=== PATIENT | male | born 1965 | race Caucasian/White ===

== ENCOUNTER 2017-07-15 12:09 | Emergency (ER) | payer MEDICAID, OTHER ==
[2017-07-15] MEDS ORDERED: Sodium Chloride 0.9% 10 ML Syringe FLUSH PRN (12:18)
[2017-07-15] MEDS ORDERED: Sodium Chloride 0.9% 1,000 ML IV ONE (12:26)
[2017-07-15] MEDS ORDERED: Ondansetron 4 MG/2 ML SDV IVPUSH ONE (13:42)
[2017-07-15] MEDS ORDERED: Lactated Ringers 1,000 ML IV SCH (13:45)
[2017-07-15 14:07] LABS: CHLORIDE,CL 108 mmol/L (98-107); SODIUM,NA 142 mmol/L (136-145)
[2017-07-15 14:14] VITALS: BP 144/88
--- NOTE | 2017-07-15 15:57 | EDM.PDOC ---
ED HPI GENERAL MEDICAL PROBLEM - General Chief Complaint: General Stated Complaint: ER Time Seen by Provider: 07/15/17 12:12 Source of Information: Reports: Patient History Limitations: Reports: No Limitations - History of Present Illness INITIAL COMMENTS - FREE TEXT/NARRATIVE: Pt. states that he has been experiencing diarrhea and nausea for the past 4 days. He states that he has a history of Parkinson's disease and feels that the weakness is secondary to that. Pt. states that he becomes very week when he stands or is ambulatory for an extended period of time, and states that he feel twice in the past few days. He state that he did not lose consciousness. He states that he has had fever and chills. He denies any chest pain or shortness of breath. He denies any blood in his stool. Onset Date: 07/12/17 Location: Reports: Generalized Associated Symptoms: Reports: Fever/Chills, Loss of Appetite, Malaise, Weakness - Related Data Allergies Allergy/AdvReac Type Severity Reaction Status Date / Time hydrocodone Allergy Dizziness Verified 07/15/17 12:33 sertraline HCl [From Zoloft] Allergy Hives Verified 07/15/17 12:33 cranberry Allergy Respiratory Uncoded 12/30/15 19:08 Distress Home Meds: Home Meds Albuterol [Ventolin HFA] 2 puff INH Q4H PRN 07/15/14 [History] Budesonide/Formoterol [Symbicort 80-4.5 MCG] 1 puff INH BID 07/15/14 [History] Insulin Glarg,Human.Rec.Analog [LantUS] 28 unit SUBCUT BEDTIME 07/15/14 [History ] Nortriptyline HCl [Nortriptyline HCl] 25 mg PO TID 07/15/14 [History] Lisinopril 5 mg PO DAILY 02/24/15 [History] PARoxetine [Paxil] 20 mg PO DAILY 02/24/15 [History] Zolpidem Tartrate [Zolpidem Tartrate] 5 mg PO BEDTIME 11/26/15 [History] Benztropine [Cogentin] 0.5 mg PO BID 07/15/17 [History] Carbidopa/Levodopa [Sinemet Cr 50-200 Tablet] 1 each PO TID 07/15/17 [History] Cyanocobalamin (Vitamin B-12) [B-12] 1,000 mcg PO DAILY 07/15/17 [History] Docusate Sodium [Colace] 100 mg PO TID 07/15/17 [History] Famotidine [Pepcid] 20 mg PO DAILY PRN 07/15/17 [History] Fluticasone Propionate [Flonase] 1 spray NASBOTH BID 07/15/17 [History] Gabapentin [Neurontin] 100 mg PO TID 07/15/17 [History] Warfarin [Coumadin] 5 mg PO .Pharmacy To Dose 07/15/17 [History] atorvaSTATin [Lipitor] 10 mg PO BEDTIME 07/15/17 [History] Past Medical History Respiratory History: Reports: Asthma Musculoskeletal History: Reports: Back Pain, Chronic Neurological History: Reports: Parkinson's Endocrine/Metabolic History: Reports: Diabetes, Type II Social & Family History - Tobacco Use Smoking Status *Q: Unknown Ever Smoked Second Hand Smoke Exposure: No - Alcohol Use Days Per Week of Alcohol Use: 0 - Recreational Drug Use Recreational Drug Use: No Recreational Drug Type: Reports: Marijuana/Hashish Recreational Drug Use Frequency: Not Used In Over 1 Year ED ROS GENERAL - Review of Systems Review Of Systems: See Below Constitutional: Reports: Fever, Chills, Malaise, Weakness, Fatigue HEENT: Reports: No Symptoms Respiratory: Reports: No Symptoms Cardiovascular: Reports: No Symptoms Endocrine: Reports: No Symptoms GI/Abdominal: Reports: Diarrhea, Flatus, Nausea : Reports: No Symptoms Musculoskeletal: Reports: No Symptoms Skin: Reports: No Symptoms Neurological: Reports: Pre-Existing Deficit (history of parkinson's disease), Weakness Psychiatric: Reports: No Symptoms Hematologic/Lymphatic: Reports: No Symptoms Immunologic: Reports: No Symptoms ED EXAM, GENERAL - Physical Exam Exam: See Below Exam Limited By: No Limitations General Appearance: Alert, WD/WN, No Apparent Distress Eye Exam: Bilateral Eye: EOMI, Normal Fundi, Normal Inspection, PERRL Ears: Normal External Exam, Normal Canal, Hearing Grossly Normal, Normal TMs Nose: Normal Inspection, Normal Mucosa, No Blood Throat/Mouth: Normal Inspection, Normal Lips, Normal Teeth, Normal Gums, No Airway Compromise, Other (oral mucosa dry) Head: Atraumatic, Normocephalic Neck: Normal Inspection, Supple, Non-Tender, Full Range of Motion Respiratory/Chest: No Respiratory Distress, Lungs Clear, Normal Breath Sounds, Chest Non-Tender Cardiovascular: Normal Peripheral Pulses, Regular Rate, Rhythm, No Edema, No JVD , No Murmur GI/Abdominal: Soft, Non-Tender, No Organomegaly, No Distention, No Mass, Other ( hyperactive bowel sounds) (Male) Exam: Deferred Rectal (Males) Exam: Deferred Back Exam: Normal Inspection, Full Range of Motion Extremities: Normal Inspection, Normal Range of Motion Neurological: Alert, Oriented, CN II-XII Intact, Normal Cognition, Normal Reflexes, No Motor/Sensory Deficits Psychiatric: Normal Affect, Normal Mood Skin Exam: Warm, Dry, Intact, Normal Color Lymphatic: No Adenopathy Course - Vital Signs Last Recorded V/S: Last Vital Signs Temp 36.8 C 07/15/17 13:43 Pulse 90 07/15/17 14:13 Resp 14 07/15/17 13:43 BP 144/88 H 07/15/17 14:13 Pulse Ox 95 07/15/17 14:13 - Orders/Labs/Meds Orders: Active Orders 24 hr Category Date Time Status EKG Documentation Completion [RC] STAT Care 07/15/17 12:19 Ordered Abdomen Series w Chest 1V [CR] Stat Exams 07/15/17 12:19 Taken CULTURE BLOOD [BC] Stat Lab 07/15/17 13:20 Results CULTURE BLOOD [BC] Stat Lab 07/15/17 13:30 Results Blood Culture x2 Reflex Set [OM.PC] Stat Oth 07/15/17 12:21 Ordered Peripheral IV Insertion Adult [OM.PC] Routine Oth 07/15/17 12:20 Ordered Labs: Laboratory Tests 07/15/17 07/15/17 07/15/17 Range/Units 13:09 13:20 13:20 WBC 6.6 (4.0-10.0) x10^3/uL RBC 4.84 (4.5-6.0) x10^6/uL Hgb 14.8 (14.0-18.0) g/dL Hct 43.0 (40.0-52.0) % MCV 88.8 (78.0-93.0) fL MCH 30.6 (26.0-32.0) pg MCHC 34.4 (32.0-36.0) g/dL RDW Coeff of Sharri 13.7 (10.0-15.0) % Plt Count 226 (130-400) x10^3/uL Neut % (Auto) 55.3 (50.0-80.0) % Lymph % (Auto) 33.2 (25.0-50.0) % [place] % (Auto) 8.6 (2.0-11.0) % Eos % (Auto) 2.3 (0.0-4.0) % Baso % (Auto) 0.6 (0.2-1.2) % PT 17.6 H (9.8-11.8) SEC INR 1.7 L (2.0-3.5) Sodium (136-145) mmol/L Potassium (3.5-5.1) mmol/L Chloride (98-107) mmol/L Carbon Dioxide (21-32) mmol/L BUN (7-18) mg/dL Creatinine (0.70-1.30) mg/dL Est Cr Clr Drug Dosing Estimated GFR (MDRD) Glucose (74-106) mg/dL Lactic Acid (0.4-2.0) mmol/L Calcium (8.5-10.1) mg/dL Corrected Calcium (8.5-10.1) mg/dL Phosphorus (2.6-4.7) mg/dL Magnesium (1.8-2.4) mg/dL Total Bilirubin (0.2-1.0) mg/dL AST (15-37) U/L ALT (16-63) U/L Alkaline Phosphatase (46-116) U/L Creatine Kinase (39-308) U/L Creatine Kinase Index (0.0-4.0) % CK-MB (CK-2) (0.0-3.6) ng/mL Troponin I (<=0.056) ng/mL C-Reactive Protein (<=0.9) mg/dL Total Protein (6.4-8.2) g/dL Albumin (3.4-5.0) g/dL Globulin Albumin/Globulin Ratio Urine Color Dark yellow H (YELLOW) Urine Appearance Clear (CLEAR) Urine pH 5.5 (5.0-8.0) Ur Specific [place] >=1.030 Urine Protein Trace H (NEGATIVE) mg/dL Urine Glucose (UA) Negative (NEGATIVE) mg/dL Urine Ketones Negative (NEGATIVE) mg/dL Urine Occult Blood Negative (NEGATIVE) Urine Nitrite Negative (NEGATIVE) Urine Bilirubin Small H (NEGATIVE) Urine Urobilinogen 1.0 (0.2) EU/dL Ur Leukocyte Esterase Negative (NEGATIVE) Urine RBC 0-5 (NOT SEEN) /HPF Urine WBC 0-5 (NOT SEEN) /HPF Ur Squamous Epith Cells Rare (NEGATIVE) /HPF Urine Bacteria Few H (NEGATIVE) /HPF Urine Mucus Moderate H (NEGATIVE) /LPF 07/15/17 07/15/17 Range/Units 13:20 13:20 WBC (4.0-10.0) x10^3/uL RBC (4.5-6.0) x10^6/uL Hgb (14.0-18.0) g/dL Hct (40.0-52.0) % MCV (78.0-93.0) fL MCH (26.0-32.0) pg MCHC (32.0-36.0) g/dL RDW Coeff of Sharri (10.0-15.0) % Plt Count (130-400) x10^3/uL Neut % (Auto) (50.0-80.0) % Lymph % (Auto) (25.0-50.0) % [place] % (Auto) (2.0-11.0) % Eos % (Auto) (0.0-4.0) % Baso % (Auto) (0.2-1.2) % PT (9.8-11.8) SEC INR (2.0-3.5) Sodium 142 (136-145) mmol/L Potassium 3.9 (3.5-5.1) mmol/L Chloride 108 H (98-107) mmol/L Carbon Dioxide 24 (21-32) mmol/L BUN 19 H (7-18) mg/dL Creatinine 1.1 (0.70-1.30) mg/dL Est Cr Clr Drug Dosing TNP Estimated GFR (MDRD) > 60 Glucose 159 H (74-106) mg/dL Lactic Acid 0.6 (0.4-2.0) mmol/L Calcium 8.7 (8.5-10.1) mg/dL Corrected Calcium 8.94 (8.5-10.1) mg/dL Phosphorus 2.5 L (2.6-4.7) mg/dL Magnesium 1.8 (1.8-2.4) mg/dL Total Bilirubin 1.3 H (0.2-1.0) mg/dL AST 23 (15-37) U/L ALT 13 L (16-63) U/L Alkaline Phosphatase 69 (46-116) U/L Creatine Kinase 172 (39-308) U/L Creatine Kinase Index 0.7 (0.0-4.0) % CK-MB (CK-2) 1.2 (0.0-3.6) ng/mL Troponin I < 0.017 (<=0.056) ng/mL C-Reactive Protein 0.2 (<=0.9) mg/dL Total Protein 7.0 (6.4-8.2) g/dL Albumin 3.7 (3.4-5.0) g/dL Globulin 3.3 Albumin/Globulin Ratio 1.12 Urine Color (YELLOW) Urine Appearance (CLEAR) Urine pH (5.0-8.0) Ur Specific [place] Urine Protein (NEGATIVE) mg/dL Urine Glucose (UA) (NEGATIVE) mg/dL Urine Ketones (NEGATIVE) mg/dL Urine Occult Blood (NEGATIVE) Urine Nitrite (NEGATIVE) Urine Bilirubin (NEGATIVE) Urine Urobilinogen (0.2) EU/dL Ur Leukocyte Esterase (NEGATIVE) Urine RBC (NOT SEEN) /HPF Urine WBC (NOT SEEN) /HPF Ur Squamous Epith Cells (NEGATIVE) /HPF Urine Bacteria (NEGATIVE) /HPF Urine Mucus (NEGATIVE) /LPF Meds: Medications Discontinued Medications Generic Name Dose Route Start Last Admin Trade Name Freq PRN Reason Stop Dose Admin Sodium Chloride 1,000 mls @ 1,000 mls/hr 07/15/17 12:26 07/15/17 13:00 Normal Saline IV 07/15/17 13:25 1,000 mls/hr .BOLUS ONE Administration Lactated Ringer's 1,000 mls @ 500 mls/hr 07/15/17 13:45 07/15/17 13:48 Ringers, Lactated IV 500 mls/hr ASDIRECTED JAQUELIN Administration Ondansetron HCl 4 mg 07/15/17 13:42 07/15/17 13:49 Zofran IVPUSH 07/15/17 13:43 4 mg ONETIME ONE Administration Sodium Chloride 10 ml 07/15/17 12:18 Saline Flush FLUSH ASDIRECTED PRN Keep Vein Open - Radiology Interpretation Free Text/Narrative:: Abdomen complete series was all within normal limits - Re-Assessments/Exams Free Text/Narrative Re-Assessment/Exam: 07/15/17 17:32 Pt. was given a 1 Liter NS and 1 Liter of Lactated Ringers, as well as 4mg Zofran IV. Pt. reported feeling much better-states his fatigue and lightheadedness resolved, as well as the nausea. He was subsequently able to ambulate without difficulty. Departure - Departure Time of Disposition: 15:48 Disposition: Home, Self-Care 01 Condition: Good Clinical Impression: Gastroenteritis, Dehydration - Discharge Information Instructions: Viral Gastroenteritis, Adult, Rehydration, Adult Referrals: Payton Gong DO [Primary Care Provider] - Forms: ED Department Discharge Additional Instructions: Zofran 4mg 1 orally every 8 hours as needed for nausea/vomiting. Drink plenty of water. No solid foods today. Advance diet to include bananas, rice, toast, crackers and apples starting tomorrow. Continue with current medications. Your Parkinson's symptoms have worsened as a result of being sick/dehydrated. - My Orders Last 24 Hours: My Active Orders 07/15/17 12:19 EKG Documentation Completion [RC] STAT Abdomen Series w Chest 1V [CR] Stat 07/15/17 12:20 Peripheral IV Insertion Adult [OM.PC] Routine 07/15/17 12:21 Blood Culture x2 Reflex Set [OM.PC] Stat 07/15/17 13:20 CULTURE BLOOD [BC] Stat 07/15/17 13:30 CULTURE BLOOD [BC] Stat - Assessment/Plan Last 24 Hours: My Active Orders 07/15/17 12:19 EKG Documentation Completion [RC] STAT Abdomen Series w Chest 1V [CR] Stat 07/15/17 12:20 Peripheral IV Insertion Adult [OM.PC] Routine 07/15/17 12:21 Blood Culture x2 Reflex Set [OM.PC] Stat 07/15/17 13:20 CULTURE BLOOD [BC] Stat 07/15/17 13:30 CULTURE BLOOD [BC] Stat Assessment:: 1. Gastroenteritis. 2. Dehydration. Plan: Zofran 4mg 1 orally every 8 hours as needed for nausea/vomiting. Drink plenty of water. No solid foods today. Advance diet to include bananas, rice, toast, crackers and apples starting tomorrow. Continue with current medications. Your Parkinson's symptoms have worsened as a result of being sick/dehydrated
== END 2017-07-15 15:48 | disposition home or self-care (01) ==
LOC: VM.ED 12:09
DX: K52.9 Noninfective gastroenteritis and colitis, unspecified (principal); E86.0 Dehydration; J45.909 Unspecified asthma, uncomplicated; E11.9 Type 2 diabetes mellitus without complications; Z79.01 Long term (current) use of anticoagulants; Z79.899 Other long term (current) drug therapy; Z91.018 Allergy to other foods; Z88.6 Allergy status to analgesic agent; Z88.8 Allergy status to other drugs, medicaments and biological substances
CPT/HCPCS: 36415; 74022; 80053; 81001; 82550; 82553; 83605; 83735; 84100; 84484; 85025; 85610; 86140; 87040; 93005; 96361; 96374; 99284; J2405; J7030; J7120

== ENCOUNTER 2018-01-11 11:32 | Emergency (ER) | payer MEDICAID, OTHER ==
--- NOTE | 2018-01-11 11:53 | EDM.PDOC ---
ED HPI GENERAL MEDICAL PROBLEM - General Chief Complaint: Neuro Symptoms/Deficits Stated Complaint: CODE GREEN Time Seen by Provider: 01/11/18 11:52 Source of Information: Reports: Patient, EMS Notes Reviewed, RN, RN Notes Reviewed History Limitations: Reports: No Limitations - History of Present Illness INITIAL COMMENTS - FREE TEXT/NARRATIVE: Patient is brought to the ED via EMS for CVA symptoms. EMS states the symptoms began around 10am. Patient was witnessed as having a left facial droop, left side weakness/neglect, drooling, and a left-sided headache. Upon arrival, patient still had the headache on the left side. Left facial droop presents with somewhat garbled speech. No other focal neurological deficits. Onset: Today, Sudden Onset Date: 01/11/18 Onset Time: 10:00 Duration: Constant - Related Data Allergies Allergy/AdvReac Type Severity Reaction Status Date / Time hydrocodone Allergy Dizziness Verified 07/15/17 12:33 sertraline HCl [From Zoloft] Allergy Hives Verified 07/15/17 12:33 cranberry Allergy Respiratory Uncoded 12/30/15 19:08 Distress Home Meds: Home Meds Albuterol [Ventolin HFA] 2 puff INH Q4H PRN 07/15/14 [History] Budesonide/Formoterol [Symbicort 80-4.5 MCG] 1 puff INH BID 07/15/14 [History] Insulin Glarg,Human.Rec.Analog [LantUS] 28 unit SUBCUT BEDTIME 07/15/14 [History ] Nortriptyline HCl 25 mg PO TID 07/15/14 [History] Lisinopril 5 mg PO DAILY 02/24/15 [History] PARoxetine [Paxil] 20 mg PO DAILY 02/24/15 [History] Zolpidem Tartrate 5 mg PO BEDTIME 11/26/15 [History] Benztropine [Cogentin] 0.5 mg PO BID 07/15/17 [History] Carbidopa/Levodopa [Sinemet Cr 50-200 Tablet] 1 each PO TID 07/15/17 [History] Cyanocobalamin (Vitamin B-12) [B-12] 1,000 mcg PO DAILY 07/15/17 [History] Docusate Sodium [Colace] 100 mg PO TID 07/15/17 [History] Famotidine [Pepcid] 20 mg PO DAILY PRN 07/15/17 [History] Fluticasone Propionate [Flonase] 1 spray NASBOTH BID 07/15/17 [History] Gabapentin [Neurontin] 100 mg PO TID 07/15/17 [History] Warfarin [Coumadin] 5 mg PO .Pharmacy To Dose 07/15/17 [History] atorvaSTATin [Lipitor] 10 mg PO BEDTIME 07/15/17 [History] Past Medical History Respiratory History: Reports: Asthma Musculoskeletal History: Reports: Back Pain, Chronic Neurological History: Reports: Parkinson's Endocrine/Metabolic History: Reports: Diabetes, Type II Social & Family History - Tobacco Use Smoking Status *Q: Unknown Ever Smoked Second Hand Smoke Exposure: No - Alcohol Use Days Per Week of Alcohol Use: 0 - Recreational Drug Use Recreational Drug Use: No Recreational Drug Type: Reports: Marijuana/Hashish Recreational Drug Use Frequency: Not Used In Over 1 Year ED ROS GENERAL - Review of Systems Review Of Systems: See Below Constitutional: Reports: Weakness. Denies: Fever, Chills Respiratory: Denies: Shortness of Breath, Cough Cardiovascular: Denies: Chest Pain, Palpitations GI/Abdominal: Reports: Nausea. Denies: Abdominal Pain, Vomiting Musculoskeletal: Reports: No Symptoms Skin: Reports: No Symptoms Neurological: Reports: Headache, Tremors, Trouble Speaking, Weakness. Denies: Numbness, Paresthesia, Pre-Existing Deficit, Tingling ED EXAM, NEURO - Physical Exam Exam: See Below Exam Limited By: No Limitations General Appearance: Alert, No Apparent Distress Eye Exam: Bilateral Eye: EOMI, Normal Inspection, PERRL Head Exam: Atraumatic, Normocephalic Neck: Supple Respiratory/Chest: No Respiratory Distress, Lungs Clear, Normal Breath Sounds Cardiovascular: Normal Peripheral Pulses, Regular Rate, Rhythm GI/Abdominal: Normal Bowel Sounds, Soft, Non-Tender Neurological: Alert, Tremor, Other (mild left facial droop; drooling; see NIH documentation). No: Abnormal Sensation Skin Exam: Warm, Dry, Intact, Normal Color EKG INTERPRETATION EKG Date: 01/11/18 Time: 11:43 Rhythm: NSR Rate (Beats/Min): 79 [place]: Normal P-Wave: Present QRS: Normal ST-T: Normal QT: Normal HI/PQ Interval: 0.12 Comparison: NA - No Prior EKG EKG Interpretation Comments: 1. Sinus Rhythm with sinus arrhythmia 2. possible IWMI, probably old *Q Meaningful Use (ADM) - VTE *Q VTE Mechanical Contraindications *Q: At Risk for Falls Course - Orders/Labs/Meds Orders: Active Orders 24 hr Category Date Time Status EKG 12 Lead [EKG Documentation Completion] [RC] STAT Care 01/11/18 11:55 Active Head wo Cont [CT] Routine Exams 01/11/18 11:41 Taken Sodium Chloride 0.9% [Normal Saline] 1,000 ml Med 01/11/18 11:56 Active IV ONETIME Sodium Chloride 0.9% [Saline Flush] Med 01/11/18 11:56 Active 10 ml FLUSH ASDIRECTED PRN Peripheral IV Insertion Adult [OM.PC] Routine Oth 01/11/18 11:56 Ordered Medication Orders Sodium Chloride (Normal Saline) 1,000 mls @ 999 mls/hr IV ONETIME ONE Stop: 01/11/18 12:56 Last Admin: 01/11/18 12:13 Dose: 999 mls/hr Sodium Chloride (Saline Flush) 10 ml FLUSH ASDIRECTED PRN PRN Reason: Keep Vein Open Labs: Laboratory Tests 01/11/18 01/11/18 01/11/18 Range/Units 11:47 11:47 11:47 WBC 5.8 (4.0-10.0) x10^3/uL RBC 4.57 (4.5-6.0) x10^6/uL Hgb 15.1 (14.0-18.0) g/dL Hct 41.9 (40.0-52.0) % MCV 91.7 (78.0-93.0) fL MCH 33.0 H (26.0-32.0) pg MCHC 36.0 (32.0-36.0) g/dL RDW Coeff of Sharri 13.7 (10.0-15.0) % Plt Count 223 (130-400) x10^3/uL Neut % (Auto) 54.7 (50.0-80.0) % Lymph % (Auto) 33.5 (25.0-50.0) % [place] % (Auto) 8.3 (2.0-11.0) % Eos % (Auto) 2.8 (0.0-4.0) % Baso % (Auto) 0.7 (0.2-1.2) % PT 30.9 H D (9.8-11.8) SEC INR 3.0 (2.0-3.5) Sodium 135 L (136-145) mmol/L Potassium 4.3 (3.5-5.1) mmol/L Chloride 103 (98-107) mmol/L Carbon Dioxide 27 (21-32) mmol/L Anion Gap 9.3 BUN 16 (7-18) mg/dL Creatinine 1.3 (0.70-1.30) mg/dL Est Cr Clr Drug Dosing TNP Estimated GFR (MDRD) 58 Glucose 155 H (74-106) mg/dL Calcium 8.6 (8.5-10.1) mg/dL Corrected Calcium 8.76 (8.5-10.1) mg/dL Phosphorus 2.8 (2.6-4.7) mg/dL Magnesium 1.7 L (1.8-2.4) mg/dL Total Bilirubin 0.9 (0.2-1.0) mg/dL AST 25 (15-37) U/L ALT 12 L (16-63) U/L Alkaline Phosphatase 75 (46-116) U/L Creatine Kinase 193 (39-308) U/L POC Troponin I (0.00-0.08) ng/mL Total Protein 7.4 (6.4-8.2) g/dL Albumin 3.8 (3.4-5.0) g/dL Globulin 3.6 Albumin/Globulin Ratio 1.06 01/11/18 Range/Units 11:53 WBC (4.0-10.0) x10^3/uL RBC (4.5-6.0) x10^6/uL Hgb (14.0-18.0) g/dL Hct (40.0-52.0) % MCV (78.0-93.0) fL MCH (26.0-32.0) pg MCHC (32.0-36.0) g/dL RDW Coeff of Sharri (10.0-15.0) % Plt Count (130-400) x10^3/uL Neut % (Auto) (50.0-80.0) % Lymph % (Auto) (25.0-50.0) % [place] % (Auto) (2.0-11.0) % Eos % (Auto) (0.0-4.0) % Baso % (Auto) (0.2-1.2) % PT (9.8-11.8) SEC INR (2.0-3.5) Sodium (136-145) mmol/L Potassium (3.5-5.1) mmol/L Chloride (98-107) mmol/L Carbon Dioxide (21-32) mmol/L Anion Gap BUN (7-18) mg/dL Creatinine (0.70-1.30) mg/dL Est Cr Clr Drug Dosing Estimated GFR (MDRD) Glucose (74-106) mg/dL Calcium (8.5-10.1) mg/dL Corrected Calcium (8.5-10.1) mg/dL Phosphorus (2.6-4.7) mg/dL Magnesium (1.8-2.4) mg/dL Total Bilirubin (0.2-1.0) mg/dL AST (15-37) U/L ALT (16-63) U/L Alkaline Phosphatase (46-116) U/L Creatine Kinase (39-308) U/L POC Troponin I 0.00 (0.00-0.08) ng/mL Total Protein (6.4-8.2) g/dL Albumin (3.4-5.0) g/dL Globulin Albumin/Globulin Ratio Meds: Medications Generic Name Dose Route Start Last Admin Trade Name Freq PRN Reason Stop Dose Admin Sodium Chloride 1,000 mls @ 999 mls/hr 01/11/18 11:56 01/11/18 12:13 Normal Saline IV 01/11/18 12:56 999 mls/hr ONETIME ONE Administration Sodium Chloride 10 ml 01/11/18 11:56 Saline Flush FLUSH ASDIRECTED PRN Keep Vein Open Discontinued Medications Generic Name Dose Route Start Last Admin Trade Name Freq PRN Reason Stop Dose Admin Ondansetron HCl 4 mg 01/11/18 11:57 01/11/18 12:13 Zofran IVPUSH 01/11/18 11:58 4 mg ONETIME ONE Administration - Radiology Interpretation Free Text/Narrative:: CT Head: No acute findings See scanned report in EMR CT Results Date: 01/11/18 CT Results Time: 12:04 Departure - Departure Time of Disposition: 12:38 Disposition: DC/Tfer to Acute Hospital 02 Condition: Good Clinical Impression: Palsy, Facial droop - Discharge Information Forms: Interfacility Transfer [facility] ED Communication - ED Communication Date/Time Date: 01/11/18 Time Called: 12:26 - Discussed Case With (1) Discussed Case With (1): Admitting Provider ([facility]) - Conversation Summary Admitting Provider Agreed to Patient's Admission: Yes Patient Aware of Amendments fo Care Plan: Yes - Problem List Review Problem List Initiated/Reviewed/Updated: Yes - My Orders Last 24 Hours: My Active Orders 01/11/18 11:41 Head wo Cont [CT] Routine 01/11/18 11:55 EKG 12 Lead [EKG Documentation Completion] [RC] STAT 01/11/18 11:56 Sodium Chloride 0.9% [Normal Saline] 1,000 ml IV ONETIME Sodium Chloride 0.9% [Saline Flush] 10 ml FLUSH ASDIRECTED PRN Peripheral IV Insertion Adult [OM.PC] Routine - Assessment/Plan Last 24 Hours: My Active Orders 01/11/18 11:41 Head wo Cont [CT] Routine 01/11/18 11:55 EKG 12 Lead [EKG Documentation Completion] [RC] STAT 01/11/18 11:56 Sodium Chloride 0.9% [Normal Saline] 1,000 ml IV ONETIME Sodium Chloride 0.9% [Saline Flush] 10 ml FLUSH ASDIRECTED PRN Peripheral IV Insertion Adult [OM.PC] Routine Assessment:: CVA vs facial palsy Plan: Case discussed with Dr. Caceres, [facility]. Report given. Patient accepted in transfer. Patient will be sent via ALS ground.
[2018-01-11] MEDS ORDERED: Sodium Chloride 0.9% 10 ML Syringe FLUSH PRN (11:56)
[2018-01-11] MEDS: Ondansetron 4 MG/2 ML SDV IVPUSH ONE (12:13)
[2018-01-11] MEDS: Sodium Chloride 0.9% 1,000 ML IV ONE (12:13)
[2018-01-11 12:14] LABS: CHLORIDE,CL 103 mmol/L (98-107); SODIUM,NA 135 mmol/L (136-145)
== END 2018-01-11 13:00 | disposition short-term general hospital (02) ==
LOC: VM.ED 11:32
DX: R29.810 Facial weakness (principal); G83.9 Paralytic syndrome, unspecified; E11.9 Type 2 diabetes mellitus without complications; J45.909 Unspecified asthma, uncomplicated; Z88.5 Allergy status to narcotic agent; Z88.8 Allergy status to other drugs, medicaments and biological substances; Z79.899 Other long term (current) drug therapy
CPT/HCPCS: 36415; 70450; 80053; 82550; 83735; 84100; 84484; 85025; 85610; 93010; 96361; 96374; 99284-GF; 99285; J2405; J7030

== ENCOUNTER 2020-02-21 09:25 | Emergency (ER) | payer OTHER ==
--- NOTE | 2020-02-21 09:59 | EDM.PDOC ---
ED HPI GENERAL MEDICAL PROBLEM - General Stated Complaint: Fall LOC Time Seen by Provider: 02/21/20 09:59 Source of Information: Reports: Patient History Limitations: Reports: No Limitations - History of Present Illness INITIAL COMMENTS - FREE TEXT/NARRATIVE: Patient comes emergency department with complaints of a fall and a loss of consciousness. This patient has a longstanding history of falls with his Parkinson's. He was in the bathroom this morning when he lost his balance he fell backwards striking his right elbow and hitting his head on the ground. He then woke up on the ground. He is unsure of how long he was knocked out maybe a couple of minutes. He continues to have a headache. No change in his visual acuity. No nausea no vomiting. No weakness dizziness lightheadedness prior to the fall or now. Neck pain. No visual acuity changes. No change in the functionality or sensation of his upper or lower extremities. No chest pain or shortness of breath or difficulty breathing. He has had a cough over the past couple of days. He also relates that his taste is not what it used to be. He has had a low-grade fever at home as well. He never checked that he just felt that he was feverish. Has complained of a laceration to his right elbow. He is unsure of when his last tetanus shot was. Denies any neck or back pain. Posterior Head Pain Score (Numeric/FACES): 8 Right Elbow Pain Score (Numeric/FACES): 5 - Related Data Allergies Allergy/AdvReac Type Severity Reaction Status Date / Time hydrocodone Allergy Dizziness Verified 02/21/20 10:21 sertraline HCl [From Zoloft] Allergy Hives Verified 02/21/20 10:21 cranberry Allergy Respiratory Uncoded 12/30/15 19:08 Distress Home Meds: Home Meds Albuterol [Ventolin HFA] 2 puff INH Q4H PRN 07/15/14 [History] Budesonide/Formoterol [Symbicort 80-4.5 MCG] 1 puff INH BID 07/15/14 [History] Insulin Glarg,Human.Rec.Analog [LantUS] 28 unit SUBCUT BEDTIME 07/15/14 [History ] Nortriptyline HCl 25 mg PO TID 07/15/14 [History] Lisinopril 5 mg PO DAILY 02/24/15 [History] PARoxetine [Paxil] 40 mg PO DAILY 02/24/15 [History] Zolpidem Tartrate 10 mg PO BEDTIME 11/26/15 [History] Benztropine [Cogentin] 0.5 mg PO BID 07/15/17 [History] Carbidopa/Levodopa [Sinemet Cr 50-200 Tablet] 1 each PO TID 07/15/17 [History] Cyanocobalamin (Vitamin B-12) [B-12] 1,000 mcg PO DAILY 07/15/17 [History] Docusate Sodium [Colace] 100 mg PO TID 07/15/17 [History] Famotidine [Pepcid] 20 mg PO DAILY PRN 07/15/17 [History] Fluticasone Propionate [Flonase] 1 spray NASBOTH BID 07/15/17 [History] Gabapentin [Neurontin] 100 mg PO TID 07/15/17 [History] Warfarin [Coumadin] 5 mg PO .Pharmacy To Dose 07/15/17 [History] atorvaSTATin [Lipitor] 10 mg PO BEDTIME 07/15/17 [History] Alfuzosin HCl [Alfuzosin HCl ER] 10 mg PO DAILY 02/21/20 [History] Ondansetron [Zofran] 4 mg PO Q8H PRN 02/21/20 [History] Past Medical History Respiratory History: Reports: Asthma Musculoskeletal History: Reports: Back Pain, Chronic Neurological History: Reports: Parkinson's Endocrine/Metabolic History: Reports: Diabetes, Type II ED ROS GENERAL - Review of Systems Review Of Systems: Comprehensive ROS is negative, except as noted in HPI. ED EXAM, HEAD INJURY - Physical Exam Exam: See Below Exam Limited By: No Limitations General Appearance: Alert, WD/WN, No Apparent Distress Head: Atraumatic, Normocephalic. No: Scalp Lacerations, Scalp Swelling, Scalp Abrasions, Scalp Ecchymosis, Scalp Hematoma, Scalp Tenderness, Active Bleeding, Morales's Sign, Flap, Facial Abrasions, Facial Ecchymosis, Facial Lacerations, Facial Swelling, Sinus Tenderness, Facial Tenderness, Raccoon Eyes Nexus Criteria: No: Posterior, Midline Cervical Tenderness, Evidence of Intoxication, Altered Level of Consciousness, Focal Neurological Deficit, Painful Distraction Injuries Eyes: Bilateral Eye: EOMI, PERRL Ears: Normal External Exam, Normal Canal, Normal TMs Nose: Normal Inspection, Normal Mucousa, No Blood Throat/Mouth: Normal Inspection, Normal Lips, Normal Teeth, Normal Oropharynx, Normal Voice Neck: Non-Tender, Full Range of Motion Respiratory: No Respiratory Distress, Lungs Clear, Normal Breath Sounds, No Accessory Muscle Use Cardiovascular: Normal Peripheral Pulses, Regular Rate, Rhythm GI/Abdominal Exam: Normal Bowel Sounds, Soft, Non-Tender (Male) Exam: Deferred Rectal (Males) Exam: Deferred Back Exam: Normal Inspection, Full Range of Motion Extremities: Normal Inspection, Normal Range of Motion, Normal Capillary Refill Neurologic: washer repairman II-XII nml As Tested, No Motor/Sensory Deficits (From baseline) , Alert, Normal Mood/Affect, Oriented x 3 Skin: Normal Color, Warm/Dry - Emma Coma Score Best Eye Response ([place]): (4) Open Spontaneously Best Verbal Response ([place]): (5) Oriented Best Motor Response (Emma): (6) Obeys Commands ED LACERATION/WOUND & ROSEANN PROC - Laceration/Wound Repair Right Elbow Lac/wound length in cm: 1.2 Appearance: Subcutaneous Distal NVT: Neuro & Vascular Intact, No Tendon Injury Anesthetic Type: Local Local Anesthesia - Lidocaine (Xylocaine): 1% Plain Skin Prep: Chlorhexidine (Hibiciens), Saline Saline irrigation (cc's): 100 Exploration/Debridement/Repair: Wound Explored, In a Bloodless Field, Explored to Base Closed with: Sutures Suture Size: 5-0 # of Sutures: 4 Course - Vital Signs Last Recorded V/S: Last Vital Signs Temp 38.1 C 02/21/20 09:35 Pulse 119 H 02/21/20 09:35 Resp 18 02/21/20 09:35 BP 116/67 02/21/20 09:35 Pulse Ox 95 02/21/20 09:35 - Orders/Labs/Meds Orders: Active Orders 24 hr Category Date Time Status Vaccines to be Administered [RC] PER UNIT ROUTINE Care 02/21/20 11:20 Active Labs: Laboratory Tests 02/21/20 Range/Units 10:10 SARS-CoV-2 RNA (RT-PCR) Negative (NEGATIVE) Meds: Medications Discontinued Medications Generic Name Dose Route Start Last Admin Trade Name Freq PRN Reason Stop Dose Admin Diphtheria/Tetanus/Acell Pertussis 0.5 ml 02/21/20 11:20 02/21/20 11:27 Adacel IM 02/21/20 11:21 0.5 ml .ONCE ONE Administration Lidocaine HCl 30 ml 02/21/20 10:06 02/21/20 10:59 Xylocaine-Mpf 1% INJECT 02/21/20 10:07 30 ml ONETIME ONE Administration - Radiology Interpretation Free Text/Narrative:: X-ray of the right elbow no fracture dislocation or other osseous abnormality. CT of the head per radiology negative. - Re-Assessments/Exams Free Text/Narrative Re-Assessment/Exam: 02/21/20 WE did complete a covid test with his complaints of fever cough and taste change and this was negative. CT of the head negative. Tdap updated. Laceration repair see procedure note. This patient clearly has a concussion from his fall which is most likely mechanical due to his chronic instability with his Parkinson's. He had no symptoms prior to his fall other than losing his balance. We will discharge him home with his family at this time. Rest over the next couple of days return if anything new or worse. He is comfortable with this plan and his questions are answered. Departure - Departure Time of Disposition: 11:10 Disposition: Home, Self-Care 01 Clinical Impression: Concussion with less than 1 hour loss of consciousness, COVID-19 ruled out Laceration of elbow, right Qualifiers: Encounter type: initial encounter Qualified Code(s): S51.011A - Laceration without foreign body of right elbow, initial encounter - Discharge Information Instructions: Concussion, Adult, [id number], Sutured Wound Care, [id number] Referrals: Payton Gong, [Primary Care Provider] - Forms: ED Department Discharge Additional Instructions: Cleanse the laceration of the elbow twice daily with soap and water. Bacitracin and bandage until healed. Watch for signs of infection. Sutures out in 10 days. Water over the laceration is fine do not allow it to soak in water such as a bathtub or pool. Tylenol as needed for the headache. Rest over the next couple of days. Try to decrease stimulation with the concussion such as bright lights sounds. To the ER if new or worsening symptoms. Follow-up primary care provider if any concerns. Sepsis Event Note - Focused Exam Vital Signs: Vital Signs Temp Pulse Resp BP Pulse Ox 05/21/20 09:35 38.1 C 119 H 18 116/67 95 Date Exam was Performed: 02/21/20 Time Exam was Performed: 16:32 - My Orders Last 24 Hours: My Active Orders 02/21/20 11:20 Vaccines to be Administered [RC] PER UNIT ROUTINE - Assessment/Plan Last 24 Hours: My Active Orders 02/21/20 11:20 Vaccines to be Administered [RC] PER UNIT ROUTINE Assessment:: Fall Concussion with less than 1 hr LOC Right elbow laceration sutured. Hx of Parkinsons. Screening for COvid Plan: Cleanse the laceration of the elbow twice daily with soap and water. Bacitracin and bandage until healed. Watch for signs of infection. Sutures out in 10 days. Water over the laceration is fine do not allow it to soak in water such as a bathtub or pool. Tylenol as needed for the headache. Rest over the next couple of days. Try to decrease stimulation with the concussion such as bright lights sounds. To the ER if new or worsening symptoms. Follow-up primary care provider if any concerns.
[2020-02-21] MEDS ORDERED: Lidocaine 1% 30 ML SDV INJECT ONE (10:06)
[2020-02-21 10:18] VITALS: BP 116/67; PULSE 119
--- NOTE | 2020-02-21 11:10 | CT ---
[id number] CT/CT Head WO IV EXAM: CT Head WO IV CLINICAL DATA: FALL, LOSS OF CONSCIOUSNESS. COMPARISON STUDY: None FINDINGS: No intracranial hemorrhage, extra-axial fluid collection, mass, or acute ischemia. Soft tissues are unremarkable. Paranasal sinuses and mastoid air cells are clear. IMPRESSION: No acute intracranial findings. David Houston DO 02/21/20 1109 Thank you for allowing us to participate in the care of your patient.
--- NOTE | 2020-02-21 11:19 | CR ---
[id number] RAD/RAD Elbow Right 3V Min EXAM: 3 VIEWS RIGHT ELBOW. INDICATION: FALL, RIGHT ELBOW PAIN. COMPARISON: None. DISCUSSION: No fracture, dislocation or other acute osseous abnormality. Enthesopathic change at the triceps insertion. There is a radiodense metallic foreign body overlying the mid right forearm. This measures approximately 4 mm in maximum dimension. IMPRESSION: 1. As above. David Houston DO 02/21/20 1118 Thank you for allowing us to participate in the care of your patient.
[2020-02-21] MEDS ORDERED: Diphtheria,Pertussis(Acell),Tetanus Vaccine 0.5 ML Syringe IM ONE (11:20)
== END 2020-02-21 11:32 | disposition home or self-care (01) ==
LOC: VM.ED 09:25
DX: S06.0X1A Concussion with loss of consciousness of 30 minutes or less, initial encounter (principal); S51.011A Laceration without foreign body of right elbow, initial encounter; J45.909 Unspecified asthma, uncomplicated; G20 Parkinson's disease; E11.9 Type 2 diabetes mellitus without complications; Z23 Encounter for immunization; Z88.5 Allergy status to narcotic agent; Z88.8 Allergy status to other drugs, medicaments and biological substances; Z91.018 Allergy to other foods; Z79.4 Long term (current) use of insulin; Z79.01 Long term (current) use of anticoagulants; Z79.899 Other long term (current) drug therapy; W01.10XA Fall on same level from slipping, tripping and stumbling with subsequent striking against unspecified object, initial encounter
CPT/HCPCS: 12001; 70450; 73080-RT; 90471; 90715; 99283-GF; 99284-25; J2001; U0002

== ENCOUNTER 2020-04-04 07:35 | Inpatient (IN) | payer OTHER, MEDICARE ==
--- NOTE | 2020-04-04 08:07 | EDM.PDOC ---
ED HPI GENERAL MEDICAL PROBLEM - General Chief Complaint: Fever Stated Complaint: SYMPTOMS OF COVID Time Seen by Provider: 04/04/20 07:50 Source of Information: Reports: Patient, Family History Limitations: Reports: No Limitations - History of Present Illness INITIAL COMMENTS - FREE TEXT/NARRATIVE: Patient comes into the emergency department with complaints of fever, shortness of breath, and body aches. Patient states that this is been going on now for 2 days. His had noticed that he had increasing fatigue over the last 24 to 48 hours as well as fever, chills, nausea with vomiting, GI upset, and loss of taste. Patient has had a fever at home of approximately 101.He has had COVID testing done one time this winter after he had injured his arm which came back negative. Since then the patient and state that he has been fairly healthy and has had no major issues or concerns. Patient states He is also short of breath at rest. Patient denies any chest pain, visual changes, or peripheral edema. Onset: Gradual Quality: Reports: Ache Severity: Moderate Improves with: Reports: None Worsens with: Reports: None Associated Symptoms: Reports: Fever/Chills, Headaches, Loss of Appetite, Malaise, Nausea/Vomiting, Shortness of Breath, Weakness - Related Data Allergies Allergy/AdvReac Type Severity Reaction Status Date / Time hydrocodone Allergy Dizziness Verified 04/04/20 07:50 sertraline HCl [From Zoloft] Allergy Hives Verified 04/04/20 07:50 cranberry Allergy Respiratory Uncoded 12/30/15 19:08 Distress Home Meds: Home Meds Albuterol [Ventolin HFA] 2 puff INH Q4H PRN 07/15/14 [History] Budesonide/Formoterol [Symbicort 80-4.5 MCG] 1 puff INH BID 07/15/14 [History] Insulin Glarg,Human.Rec.Analog [LantUS] 28 unit SUBCUT BEDTIME 07/15/14 [History] Nortriptyline HCl 25 mg PO TID 07/15/14 [History] Lisinopril 5 mg PO DAILY 02/24/15 [History] PARoxetine [Paxil] 40 mg PO DAILY 02/24/15 [History] Zolpidem Tartrate 10 mg PO BEDTIME 11/26/15 [History] Benztropine [Cogentin] 0.5 mg PO BID 07/15/17 [History] Carbidopa/Levodopa [Sinemet Cr 50-200 Tablet] 1 each PO TID 07/15/17 [History] Cyanocobalamin (Vitamin B-12) [B-12] 1,000 mcg PO DAILY 07/15/17 [History] Docusate Sodium [Colace] 100 mg PO TID 07/15/17 [History] Famotidine [Pepcid] 20 mg PO DAILY PRN 07/15/17 [History] Fluticasone Propionate [Flonase] 1 spray NASBOTH BID 07/15/17 [History] Gabapentin [Neurontin] 100 mg PO TID 07/15/17 [History] Warfarin [Coumadin] 5 mg PO .Pharmacy To Dose 07/15/17 [History] atorvaSTATin [Lipitor] 10 mg PO BEDTIME 07/15/17 [History] Alfuzosin HCl [Alfuzosin HCl ER] 10 mg PO DAILY 02/21/20 [History] Ondansetron [Zofran] 4 mg PO Q8H PRN 02/21/20 [History] Past Medical History HEENT History: Reports: Allergic Rhinitis Cardiovascular History: Reports: High Cholesterol, Hypertension, [place] Respiratory History: Reports: Asthma Gastrointestinal History: Reports: Colon Polyp, GERD Other Gastrointestinal History: ch's esophagus Musculoskeletal History: Reports: Back Pain, Chronic Neurological History: Reports: Parkinson's Psychiatric History: Reports: Depression, PTSD Endocrine/Metabolic History: Reports: Diabetes, Type II Social & Family History - Tobacco Use Smoking Status *Q: Unknown Ever Smoked ED ROS GENERAL - Review of Systems Review Of Systems: See Below Constitutional: Reports: Fever, Chills, Malaise, Weakness, Fatigue, Decreased Appetite Respiratory: Reports: Shortness of Breath Cardiovascular: Reports: No Symptoms Endocrine: Reports: No Symptoms GI/Abdominal: Reports: No Symptoms : Reports: No Symptoms Musculoskeletal: Reports: No Symptoms Skin: Reports: No Symptoms Neurological: Reports: No Symptoms Psychiatric: Reports: No Symptoms Hematologic/Lymphatic: Reports: No Symptoms Immunologic: Reports: No Symptoms ED EXAM, GENERAL - Physical Exam Exam: See Below Exam Limited By: No Limitations General Appearance: Alert, WD/WN, No Apparent Distress Eye Exam: Bilateral Eye: EOMI, PERRL Head: Atraumatic, Normocephalic Neck: Normal Inspection, Supple, Non-Tender, Full Range of Motion Respiratory/Chest: Decreased Breath Sounds Cardiovascular: Normal Peripheral Pulses, No Edema, Tachycardia GI/Abdominal: Normal Bowel Sounds, Soft, Non-Tender, No Mass Extremities: Normal Inspection, Normal Range of Motion, Non-Tender, No Pedal Edema, Normal Capillary Refill Neurological: Alert, Oriented, Other (use walker for mobility ) Psychiatric: Normal Affect, Normal Mood Skin Exam: Warm, Normal Color Course - Vital Signs Last Recorded V/S: Last Vital Signs Temp 39.2 C H 04/04/20 09:44 Pulse 101 H 04/04/20 09:44 Resp 20 04/04/20 09:44 BP 132/69 04/04/20 09:44 Pulse Ox 92 L 04/04/20 09:44 - Orders/Labs/Meds Orders: Active Orders 24 hr Category Date Time Status Admission Status [Patient Status] [ADT] Routine ADT 04/04/20 10:13 Ordered EKG Documentation Completion [RC] STAT Care 04/04/20 07:58 Active CULTURE BLOOD [BC] Stat Lab 04/04/20 08:36 Received CULTURE BLOOD [BC] Stat Lab 04/04/20 08:41 Received PROCALCITONIN [REF] Stat Lab 04/04/20 08:36 Received Acetaminophen [Tylenol] Med 04/04/20 10:14 Once 650 mg PO NOW ONE Sodium Chloride 0.9% [Saline Flush] Med 04/04/20 07:58 Active 10 ml FLUSH ASDIRECTED PRN Blood Culture x2 Reflex Set [OM.PC] Stat Oth 04/04/20 07:58 Ordered Peripheral IV Insertion Adult [OM.PC] Stat Oth 04/04/20 07:58 Ordered Medication Orders Sodium Chloride (Saline Flush) 10 ml FLUSH ASDIRECTED PRN PRN Reason: Keep Vein Open Labs: Laboratory Tests 04/04/20 04/04/20 04/04/20 Range/Units 08:05 08:36 08:36 WBC 7.1 (4.0-10.0) x10^3/uL RBC 4.94 (4.5-6.0) x10^6/uL Hgb 15.3 (14.0-18.0) g/dL Hct 44.5 (40.0-52.0) % MCV 90.1 (78.0-93.0) fL MCH 31.0 (26.0-32.0) pg MCHC 34.4 (32.0-36.0) g/dL RDW Coeff of Sharri 13.4 (10.0-15.0) % Plt Count 206 (130-400) x10^3/uL Add Manual Diff Yes Neutrophils % (Manual) 78 (50-80) % Band Neutrophils % 4 (0-6) % Lymphocytes % (Manual) 10 L (25-50) % Monocytes % (Manual) 6 (2-11) % Eosinophils % (Manual) 2 (0-4) % Platelet Estimate Adequate Anisocytosis 1+ slight H Sodium 140 (136-145) mmol/L Potassium 4.6 (3.5-5.1) mmol/L Chloride 103 (98-107) mmol/L Carbon Dioxide 26 (21-32) mmol/L Anion Gap 15.6 (10-20) mmol/L BUN 24 H (7-18) mg/dL Creatinine 1.6 H (0.70-1.30) mg/dL Est Cr Clr Drug Dosing TNP Estimated GFR (MDRD) 45 Glucose 170 H (74-106) mg/dL Lactic Acid (0.4-2.0) mmol/L Calcium 8.8 (8.5-10.1) mg/dL Corrected Calcium 8.80 (8.5-10.1) mg/dL Total Bilirubin 1.0 (0.2-1.0) mg/dL AST 26 (15-37) U/L ALT 57 (16-63) U/L Alkaline Phosphatase 67 (46-116) U/L Troponin I < 0.017 (<=0.056) ng/mL NT-Pro-B Natriuret Pep 33 (<=125) pg/mL Total Protein 7.6 (6.4-8.2) g/dL Albumin 4.0 (3.4-5.0) g/dL Globulin 3.6 Albumin/Globulin Ratio 1.11 Urine Color (YELLOW) Urine Appearance (CLEAR) Urine pH (5.0-8.0) Ur Specific [place] Urine Protein (NEGATIVE) mg/dL Urine Glucose (UA) (NEGATIVE) mg/dL Urine Ketones (NEGATIVE) mg/dL Urine Occult Blood (NEGATIVE) Urine Nitrite (NEGATIVE) Urine Bilirubin (NEGATIVE) Urine Urobilinogen (0.2) EU/dL Ur Leukocyte Esterase (NEGATIVE) SARS-CoV-2 RNA (RT-PCR) Negative (NEGATIVE) 04/04/20 04/04/20 Range/Units 08:36 09:25 WBC (4.0-10.0) x10^3/uL RBC (4.5-6.0) x10^6/uL Hgb (14.0-18.0) g/dL Hct (40.0-52.0) % MCV (78.0-93.0) fL MCH (26.0-32.0) pg MCHC (32.0-36.0) g/dL RDW Coeff of Sharri (10.0-15.0) % Plt Count (130-400) x10^3/uL Add Manual Diff Neutrophils % (Manual) (50-80) % Band Neutrophils % (0-6) % Lymphocytes % (Manual) (25-50) % Monocytes % (Manual) (2-11) % Eosinophils % (Manual) (0-4) % Platelet Estimate Anisocytosis Sodium (136-145) mmol/L Potassium (3.5-5.1) mmol/L Chloride (98-107) mmol/L Carbon Dioxide (21-32) mmol/L Anion Gap (10-20) mmol/L BUN (7-18) mg/dL Creatinine (0.70-1.30) mg/dL Est Cr Clr Drug Dosing Estimated GFR (MDRD) Glucose (74-106) mg/dL Lactic Acid 2.3 H* (0.4-2.0) mmol/L Calcium (8.5-10.1) mg/dL Corrected Calcium (8.5-10.1) mg/dL Total Bilirubin (0.2-1.0) mg/dL AST (15-37) U/L ALT (16-63) U/L Alkaline Phosphatase (46-116) U/L Troponin I (<=0.056) ng/mL NT-Pro-B Natriuret Pep (<=125) pg/mL Total Protein (6.4-8.2) g/dL Albumin (3.4-5.0) g/dL Globulin Albumin/Globulin Ratio Urine Color Yellow (YELLOW) Urine Appearance Clear (CLEAR) Urine pH 5.5 (5.0-8.0) Ur Specific [place] 1.020 Urine Protein Negative (NEGATIVE) mg/dL Urine Glucose (UA) Negative (NEGATIVE) mg/dL Urine Ketones Negative (NEGATIVE) mg/dL Urine Occult Blood Negative (NEGATIVE) Urine Nitrite Negative (NEGATIVE) Urine Bilirubin Negative (NEGATIVE) Urine Urobilinogen 0.2 (0.2) EU/dL Ur Leukocyte Esterase Negative (NEGATIVE) SARS-CoV-2 RNA (RT-PCR) (NEGATIVE) Meds: Medications Generic Name Dose Route Start Last Admin Trade Name Freq PRN Reason Stop Dose Admin Sodium Chloride 10 ml 04/04/20 07:58 Saline Flush FLUSH ASDIRECTED PRN Keep Vein Open Discontinued Medications Generic Name Dose Route Start Last Admin Trade Name Freq PRN Reason Stop Dose Admin Ceftriaxone Sodium 1 gm 04/04/20 08:14 04/04/20 08:37 Rocephin IVPUSH 04/04/20 08:15 1 gm ONETIME ONE Administration Sodium Chloride 1,000 mls @ 1,000 mls/hr 04/04/20 08:15 04/04/20 08:36 Normal Saline IV 04/04/20 09:14 1,000 mls/hr ONETIME ONE Administration Departure - Departure Time of Disposition: 10:00 Disposition: Admitted As Inpatient 66 Condition: Good Clinical Impression: Weakness Pneumonia Qualifiers: Pneumonia type: due to unspecified organism Laterality: bilateral Lung location: lower lobe of lung Qualified Code(s): J18.9 - Pneumonia, unspecified organism Fever Qualifiers: Fever type: unspecified Qualified Code(s): R50.9 - Fever, unspecified Fatigue Qualifiers: Fatigue type: unspecified Qualified Code(s): R53.83 - Other fatigue - Discharge Information *PRESCRIPTION DRUG MONITORING PROGRAM REVIEWED*: Not Applicable *COPY OF PRESCRIPTION DRUG MONITORING REPORT IN PATIENT YVONNE: Not Applicable Referrals: Payton Gong DO [Physician] - Jm Mccormack MD [Primary Care Provider] - Forms: ED Department Discharge Sepsis Event Note (ED) - Evaluation Sepsis Screening Result: No Definite Risk - Focused Exam Vital Signs: Vital Signs Temp Temp Pulse Resp BP Pulse Ox 04/04/20 09:44 39.2 C H 101 H 20 132/69 92 L 04/04/20 07:40 39.2 C H 39.9 C H 118 H 20 133/72 91 L - My Orders Last 24 Hours: My Active Orders 04/04/20 07:58 EKG Documentation Completion [RC] STAT Sodium Chloride 0.9% [Saline Flush] 10 ml FLUSH ASDIRECTED PRN Blood Culture x2 Reflex Set [OM.PC] Stat Peripheral IV Insertion Adult [OM.PC] Stat 04/04/20 08:36 CULTURE BLOOD [BC] Stat PROCALCITONIN [REF] Stat 04/04/20 08:41 CULTURE BLOOD [BC] Stat 04/04/20 10:13 Admission Status [Patient Status] [ADT] Routine 04/04/20 10:14 Acetaminophen [Tylenol] 650 mg PO NOW ONE - Assessment/Plan Last 24 Hours: My Active Orders 04/04/20 07:58 EKG Documentation Completion [RC] STAT Sodium Chloride 0.9% [Saline Flush] 10 ml FLUSH ASDIRECTED PRN Blood Culture x2 Reflex Set [OM.PC] Stat Peripheral IV Insertion Adult [OM.PC] Stat 04/04/20 08:36 CULTURE BLOOD [BC] Stat PROCALCITONIN [REF] Stat 04/04/20 08:41 CULTURE BLOOD [BC] Stat 04/04/20 10:13 Admission Status [Patient Status] [ADT] Routine 04/04/20 10:14 Acetaminophen [Tylenol] 650 mg PO NOW ONE Assessment:: 1. pneumonia 2. sepsis criteria 3. fever 4. fatigue 5. weakness 6. decrease appetite 7. elevated Lactic acid Plan: 1. Sepsis protocol initiated and followed 2. Labs completed in the ER. Results reviewed with the patient 3. Blood cultures completed 4. IV initiated in the emergency department 5. IV fluids provided- 1Liter NS given 6. Covid-19 testing completed- negative rapid screening 7. EKG completed in ER. sinus tachycardia 8. Rocephin 1gm IV given in ER after Covid-19 testing results received 9. Tylenol PO given for fever 10. Consultation completed with-Dr. Cardona who will admit to acute care for further medical management 11. Patient and nursing staff was updated regarding the plan of care 12. Patient and family are agreeable to the above plan of care 13. All questions and concerns were addressed with the patient and family prior to admission
[2020-04-04] MEDS ORDERED: cefTRIAXone 1 GM Vial IVPUSH ONE (08:14)
[2020-04-04] MEDS ORDERED: Sodium Chloride 0.9% 1,000 ML IV ONE (08:15)
[2020-04-04 09:12] LABS: CHLORIDE,CL 103 mmol/L (98-107); SODIUM,NA 140 mmol/L (136-145)
[2020-04-04 09:13] LABS: ANION GAP 15.6 mmol/L (10-20)
--- NOTE | 2020-04-04 09:38 | CR ---
[id number] RAD/RAD Chest PA or AP 1V EXAM: FRONTAL CHEST INDICATION: SHORT OF BREATH. COMPARISON: July 15, 2017. DISCUSSION: Hypoinflation with central vascular crowding and basilar atelectasis. These changes could obscure early infiltrates or other pathology. Normal heart size. IMPRESSION: 1. Low lung volumes with mild bibasilar atelectasis. Goldy Rivera MD 04/04/20 0937 Thank you for allowing us to participate in the care of your patient.
[2020-04-04] MEDS ORDERED: Acetaminophen 325 MG Tab PO ONE (10:14)
[2020-04-04] MEDS ORDERED: Sodium Chloride 0.9% 10 ML Syringe FLUSH PRN (11:19)
[2020-04-04] MEDS ORDERED: Acetaminophen 325 MG Tab PO PRN (11:19)
[2020-04-04] MEDS ORDERED: Azithromycin 500 MG in Sodium Chloride 0.9% 250 ML IV STA (11:35)
--- NOTE | 2020-04-04 11:58 | PCM.HP.2 ---
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 Endorses 3 days of not feeling well with fever, SOB, body aches, and some nausea. Has had poor oral intake over the last few days. Developed a cough last evening that has persisted into this morning. Denies any recent URIs. ED evaluation notable for tachycardia, O2's in the lower 90s, normal CBC, elevated LA, Cr of 1.6. A CXR demonstrated bibasilar atelectasis concerning for pneumonia. (UA was negative). Blood cultures were collected. COVID testing was negative. He was given 1g of Rocephin IV and admitted for treatment of Sepsis/CAP. At this time the patient notes that he feels poor but is happy he didn't stay home to "tough this out". Endorses similar history to this provider as he did to the ED provider. Is fairly worried about making sure he gets some of his meds on board as many of these were recently changed at the [facility] and he doesn't want to get off-schedule due to fear of s/e. - Related Data Allergies/Adverse Reactions: Allergies Allergy/AdvReac Type Severity Reaction Status Date / Time hydrocodone Allergy Dizziness Verified 04/04/20 07:50 sertraline HCl [From Zoloft] Allergy Hives Verified 04/04/20 07:50 cranberry Allergy Respiratory Uncoded 12/30/15 19:08 Distress Home Medications: Home Meds Albuterol [Ventolin HFA] 2 puff INH Q6HR PRN 07/15/14 [History] Budesonide/Formoterol [Symbicort 80-4.5 MCG] 2 puff INH BID 07/15/14 [History] Insulin Glarg,Human.Rec.Analog [LantUS] 36 unit SUBCUT BEDTIME 07/15/14 [History] Lisinopril 5 mg PO DAILY 02/24/15 [History] PARoxetine [Paxil] 40 mg PO DAILY 02/24/15 [History] Benztropine [Cogentin] 0.5 mg PO BID 07/15/17 [History] Carbidopa/Levodopa [Sinemet Cr 50-200 Tablet] 1 each PO 0800 07/15/17 [History] Gabapentin [Neurontin] 800 mg PO TID 07/15/17 [History] Warfarin [Coumadin] 5 mg PO MO 07/15/17 [History] Alfuzosin HCl [Alfuzosin HCl ER] 10 mg PO DAILY 02/21/20 [History] Acetaminophen 1,300 mg PO BEDTIME 04/04/20 [History] Alogliptin Benzoate [Alogliptin] 25 mg PO DAILY 04/04/20 [History] Carbidopa/Levodopa [Carbidopa-Levodopa 25-250] 1 tab PO 0800,1100,1500 04/04/20 [History] Celecoxib 200 mg PO DAILY 04/04/20 [History] Cholecalciferol (Vitamin D3) [Vitamin D3] 50 mcg PO DAILY 04/04/20 [History] Empagliflozin [Jardiance] 12.5 mg PO DAILY 04/04/20 [History] Eszopiclone 3 mg PO BEDTIME PRN 04/04/20 [History] Finasteride 5 mg PO DAILY 04/04/20 [History] Gabapentin [Neurontin] 1,200 mg PO BEDTIME 04/04/20 [History] Insulin Aspart [NovoLOG] 5 units SUBCUT TIDMEALS 04/04/20 [History] Magnesium Hydroxide [Milk of Magnesia] 30 ml PO DAILY PRN 04/04/20 [History] Mirtazapine 30 mg PO BEDTIME 04/04/20 [History] Pantoprazole Sodium [Protonix] 40 mg PO BIDMEALS 04/04/20 [History] QUEtiapine Fumarate [Quetiapine Fumarate] 100 mg PO TID 04/04/20 [History] Warfarin [Coumadin] 7.5 mg PO SUTUWETHFRSA 04/04/20 [History] busPIRone HCl [Buspirone HCl] 15 mg PO BID 04/04/20 [History] metFORMIN HCl [Metformin HCl] 500 mg PO BIDMEALS 04/04/20 [History] polyethylene glycoL 3350 [Polyethylene Glycol 3350] 17 gm PO BID 04/04/20 [History] traZODone HCl [Trazodone HCl] 25 mg PO BEDTIME 04/04/20 [History] Past Medical History HEENT History: Reports: Allergic Rhinitis Cardiovascular History: Reports: High Cholesterol, Hypertension, [place], Other (See Below) Other Cardiovascular History: NSTEMI Respiratory History: Reports: Asthma, PE (on long-term anticoag) Gastrointestinal History: Reports: Colon Polyp, GERD Other Gastrointestinal History: ch's esophagus Musculoskeletal History: Reports: Back Pain, Chronic Neurological History: Reports: Parkinson's Psychiatric History: Reports: Depression, PTSD Endocrine/Metabolic History: Reports: Diabetes, Type II (on long-term insulin, with associated neuropathies) Social & Family History - Tobacco Use Smoking Status *Q: Never Smoker Second Hand Smoke Exposure: No - Caffeine Use Caffeine Use: Reports: Coffee, Soda - Recreational Drug Use Recreational Drug Use: No H&P Review of Systems - Review of Systems: Review Of Systems: See Below General: Reports: Fever, Chills, Malaise, Diaphoresis HEENT: Reports: No Symptoms Pulmonary: Reports: Shortness of Breath, Cough (non-productive) Cardiovascular: Reports: Chest Pain (on the ribs) Gastrointestinal: Reports: Anorexia, Constipation (chronic), Nausea Genitourinary: Reports: No Symptoms Musculoskeletal: Reports: Back Pain (chronic) Skin: Reports: No Symptoms Psychiatric: Reports: Depression, Anxiety, Other (sleep walking) Neurological: Reports: Tremors (parkinsons) Hematologic/Lymphatic: Reports: Easy Bruising (long-term anticoag, due to DVT/PE) Immunologic: Reports: No Symptoms Exam - Exam Exam: See Below - Vital Signs Vital Signs: Last Vital Signs Temp 39.2 C H 04/04/20 09:44 Pulse 101 H 04/04/20 09:44 Resp 20 04/04/20 09:44 BP 132/69 04/04/20 09:44 Pulse Ox 92 L 04/04/20 09:44 Weight: 116.12 kg - Exam General: Alert, Oriented, Mild Distress HEENT: Conjunctiva Clear, EOMI, Mucosa Moist & [place], Nares Patent, Posterior Pharynx Clear Neck: Supple, Trachea Midline, Lymphadenopathy Lungs: Rales, Wheezing Cardiovascular: Regular Rate, Regular Rhythm GI/Abdominal Exam: Normal Bowel Sounds, Soft, Non-Tender, Distended (gasseous, patient reports this as chronic) Extremities: Normal Range of Motion, No Pedal Edema Peripheral Pulses: 2+: Brachial (L), Brachial (R), Dorsalis Pedis (L), Dorsalis Pedis (R) Skin: Warm, Moist Neurological: Cranial Nerves Intact Neuro Extensive - Mental Status: Alert, Oriented x3 Neuro Extensive - Motor, Sensory, Reflexes: CN II-XII Intact, Normal Reflexes, Tremor (jumpy, likely secondary to missed medications) Psychiatric: Alert, Normal Mood, Other (flat affect) - Patient Data Lab Results Last 24 hrs: Laboratory Results - last 24 hr 04/04/20 04/04/20 04/04/20 Range/Units 08:05 08:36 08:36 WBC 7.1 (4.0-10.0) x10^3/uL RBC 4.94 (4.5-6.0) x10^6/uL Hgb 15.3 (14.0-18.0) g/dL Hct 44.5 (40.0-52.0) % MCV 90.1 (78.0-93.0) fL MCH 31.0 (26.0-32.0) pg MCHC 34.4 (32.0-36.0) g/dL RDW Coeff of Sharri 13.4 (10.0-15.0) % Plt Count 206 (130-400) x10^3/uL Add Manual Diff Yes Neutrophils % (Manual) 78 (50-80) % Band Neutrophils % 4 (0-6) % Lymphocytes % (Manual) 10 L (25-50) % Monocytes % (Manual) 6 (2-11) % Eosinophils % (Manual) 2 (0-4) % Platelet Estimate Adequate Anisocytosis 1+ slight H Sodium 140 (136-145) mmol/L Potassium 4.6 (3.5-5.1) mmol/L Chloride 103 (98-107) mmol/L Carbon Dioxide 26 (21-32) mmol/L Anion Gap 15.6 (10-20) mmol/L BUN 24 H (7-18) mg/dL Creatinine 1.6 H (0.70-1.30) mg/dL Est Cr Clr Drug Dosing TNP Estimated GFR (MDRD) 45 Glucose 170 H (74-106) mg/dL Lactic Acid (0.4-2.0) mmol/L Calcium 8.8 (8.5-10.1) mg/dL Corrected Calcium 8.80 (8.5-10.1) mg/dL Total Bilirubin 1.0 (0.2-1.0) mg/dL AST 26 (15-37) U/L ALT 57 (16-63) U/L Alkaline Phosphatase 67 (46-116) U/L Troponin I < 0.017 (<=0.056) ng/mL NT-Pro-B Natriuret Pep 33 (<=125) pg/mL Total Protein 7.6 (6.4-8.2) g/dL Albumin 4.0 (3.4-5.0) g/dL Globulin 3.6 Albumin/Globulin Ratio 1.11 Urine Color (YELLOW) Urine Appearance (CLEAR) Urine pH (5.0-8.0) Ur Specific [place] Urine Protein (NEGATIVE) mg/dL Urine Glucose (UA) (NEGATIVE) mg/dL Urine Ketones (NEGATIVE) mg/dL Urine Occult Blood (NEGATIVE) Urine Nitrite (NEGATIVE) Urine Bilirubin (NEGATIVE) Urine Urobilinogen (0.2) EU/dL Ur Leukocyte Esterase (NEGATIVE) SARS-CoV-2 RNA (RT-PCR) Negative (NEGATIVE) 04/04/20 04/04/20 Range/Units 08:36 09:25 WBC (4.0-10.0) x10^3/uL RBC (4.5-6.0) x10^6/uL Hgb (14.0-18.0) g/dL Hct (40.0-52.0) % MCV (78.0-93.0) fL MCH (26.0-32.0) pg MCHC (32.0-36.0) g/dL RDW Coeff of Sharri (10.0-15.0) % Plt Count (130-400) x10^3/uL Add Manual Diff Neutrophils % (Manual) (50-80) % Band Neutrophils % (0-6) % Lymphocytes % (Manual) (25-50) % Monocytes % (Manual) (2-11) % Eosinophils % (Manual) (0-4) % Platelet Estimate Anisocytosis Sodium (136-145) mmol/L Potassium (3.5-5.1) mmol/L Chloride (98-107) mmol/L Carbon Dioxide (21-32) mmol/L Anion Gap (10-20) mmol/L BUN (7-18) mg/dL Creatinine (0.70-1.30) mg/dL Est Cr Clr Drug Dosing Estimated GFR (MDRD) Glucose (74-106) mg/dL Lactic Acid 2.3 H* (0.4-2.0) mmol/L Calcium (8.5-10.1) mg/dL Corrected Calcium (8.5-10.1) mg/dL Total Bilirubin (0.2-1.0) mg/dL AST (15-37) U/L ALT (16-63) U/L Alkaline Phosphatase (46-116) U/L Troponin I (<=0.056) ng/mL NT-Pro-B Natriuret Pep (<=125) pg/mL Total Protein (6.4-8.2) g/dL Albumin (3.4-5.0) g/dL Globulin Albumin/Globulin Ratio Urine Color Yellow (YELLOW) Urine Appearance Clear (CLEAR) Urine pH 5.5 (5.0-8.0) Ur Specific [place]en 1.020 Urine Protein Negative (NEGATIVE) mg/dL Urine Glucose (UA) Negative (NEGATIVE) mg/dL Urine Ketones Negative (NEGATIVE) mg/dL Urine Occult Blood Negative (NEGATIVE) Urine Nitrite Negative (NEGATIVE) Urine Bilirubin Negative (NEGATIVE) Urine Urobilinogen 0.2 (0.2) EU/dL Ur Leukocyte Esterase Negative (NEGATIVE) SARS-CoV-2 RNA (RT-PCR) (NEGATIVE) Result Diagrams: 04/04/20 08:36 04/04/20 08:36 Sepsis Event Note - Evaluation Sepsis Screening Result: Severe Sepsis Risk - Focused Exam Vital Signs: Vital Signs Temp Temp Pulse Resp BP Pulse Ox 04/04/20 09:44 39.2 C H 101 H 20 132/69 92 L 04/04/20 07:40 39.2 C H 39.9 C H 118 H 20 133/72 91 L Date Exam was Performed: 04/04/20 Time Exam was Performed: 12:43 - Problem List (1) Sepsis SNOMED Code(s): 78422530 ICD Code: A41.9 - SEPSIS, UNSPECIFIED ORGANISM Status: Acute Current Visit: Yes (2) Pneumonia SNOMED Code(s): 711890404 ICD Code: J18.9 - PNEUMONIA, UNSPECIFIED ORGANISM Status: Acute Current Visit: Yes Qualifiers: Pneumonia type: due to unspecified organism Laterality: bilateral Lung location: lower lobe of lung Qualified Code(s): J18.9 - Pneumonia, unspecified organism (3) JJ (acute kidney injury) SNOMED Code(s): 43278401, 98302296 ICD Code: N17.9 - ACUTE KIDNEY FAILURE, UNSPECIFIED Status: Acute Current Visit: Yes (4) Diabetes mellitus type 2 SNOMED Code(s): 88074883 ICD Code: E11.9 - TYPE 2 DIABETES MELLITUS WITHOUT COMPLICATIONS Status: Acute Current Visit: No (5) History of pulmonary embolus (PE) SNOMED Code(s): 233514260 ICD Code: Z86.711 - PERSONAL HISTORY OF PULMONARY EMBOLISM Status: Acute Current Visit: Yes (6) Parkinson disease SNOMED Code(s): 19213311 ICD Code: G20 - PARKINSON'S DISEASE Status: Acute Current Visit: Yes (7) Weakness SNOMED Code(s): 28409550 ICD Code: R53.1 - WEAKNESS Status: Acute Current Visit: Yes (8) HTN (hypertension) SNOMED Code(s): 34155982 ICD Code: I10 - ESSENTIAL (PRIMARY) HYPERTENSION Status: Acute Current Visit: Yes (9) HLD (hyperlipidemia) SNOMED Code(s): 42294507 ICD Code: E78.5 - HYPERLIPIDEMIA, UNSPECIFIED Status: Acute Current Visit: Yes (10) Asthma SNOMED Code(s): 717290799 ICD Code: J45.909 - UNSPECIFIED ASTHMA, UNCOMPLICATED Status: Acute Current Visit: Yes (11) PTSD (post-traumatic stress disorder) SNOMED Code(s): 42673474 ICD Code: F43.10 - POST-TRAUMATIC STRESS DISORDER, UNSPECIFIED Status: Acute Current Visit: Yes (12) Depressive disorder SNOMED Code(s): 72547949 ICD Code: F32.9 - MAJOR DEPRESSIVE DISORDER, SINGLE EPISODE, UNSPECIFIED Status: Acute Current Visit: No (13) BPH (benign prostatic hyperplasia) SNOMED Code(s): 397497548 ICD Code: N40.0 - BENIGN PROSTATIC HYPERPLASIA WITHOUT LOWER URINRY TRACT SYMP Status: Acute Current Visit: Yes Problem List Initiated/Reviewed/Updated: Yes Assessment/Plan Comment:: Acute: # Sepsis suspected secondary to Pneumonia - Elevated LA, tachycardic, reported fever - COVID negative - CXR: bibasilar atelectasis - 1L IVF and 1g Rocephin given in ED Plan: - Blood cultures pending - Procal pending - CRP now - IVF: NS @ 150ml/hr - Antibiotics: Azithro 500 IV now. Will plan for 1 more dose of IV rocephin tomorrow to be followed by 4 days of PO Cefuroxime. Will plan to transition to PO azithro tomorrow for 5 days of PO admit (Abx set to finish on 04/09) - Will trend LA every 4 hours until WNL - Recheck CBC in the am - Tylenol PRN for pain/fever # JJ on CKD - Cr 1.6 in the ED, previous baseline 1.2-1.3 Plan: - IVF at 150 - Recheck BMP in the am - Holding home celebrex Chronic: #Type 2 diabetes, insulin dependent - continue home metformin, alogliptin, empagliflozin. Decreasing LA insulin to 30 (from 36), OK to continue mealtime at 5U, POC q4hr #Diabetic Neuropathy - continue home gabapentin #History of DVT/PE - continue home warfarin #HTN - continue home lisinopril #Parkinsonism - continue carbidopa/levadopa, benztropine #BPH - continue home finasteride (alfuzosin not available, patient c/o leaking so will hold off on therapeutic sub at this time) #Intermittent Asthma - continue home budesonide, albuterol #Depression/PTSD - Continue home buspar, mirtazapine, paroxetine, seroquel #Insomnia - continue home eszopiclone, trazodone #GERD - continue home protonix #Constipation - continue home medications - Mortality Measure Prognosis:: Good
[2020-04-04] MEDS ORDERED: Zolpidem 5 MG Tab PO PRN (12:20)
[2020-04-04] MEDS ORDERED: Albuterol HFA 18 Gm Inhaler INH PRN (12:20)
[2020-04-04] MEDS: PARoxetine 20 MG Tab PO SCH (13:52)
[2020-04-04] MEDS: Sodium Chloride 0.9% 1,000 ML IV SCH ×2 (13:52→20:50)
[2020-04-04] MEDS: Ondansetron 4 MG Tab.DIS PO PRN (15:00)
[2020-04-04] MEDS: Carbidopa/Levodopa 25-250 MG Tab PO SCH (15:00)
[2020-04-04] MEDS ORDERED: Albuterol 0.083% 2.5 MG/3 ML Neb Soln INH PRN (15:45)
[2020-04-04] MEDS ORDERED: metFORMIN 500 MG Tab PO SCH (18:00)
[2020-04-04] MEDS: metFORMIN 500 MG Tab PO SCH (19:05)
[2020-04-04] MEDS: Pantoprazole 40 MG Tab.CR PO SCH (19:05)
[2020-04-04] MEDS: ALOGLIPTIN 25 MG PO SCH (19:07)
[2020-04-04] MEDS: Insulin Lispro 100 Units/ML 3 ML Vial SUBCUT SCH (19:08)
[2020-04-04] MEDS ORDERED: Non-Formulary Medication 1 Each (Budesonide/Formoterol Fumarate 2 PUFF) INH SCH (20:00)
[2020-04-04] MEDS ORDERED: Non-Formulary Medication 1 Each (Budesonide/Formoterol 2 PUFF) INH SCH (20:00)
[2020-04-04] MEDS ORDERED: Mirtazapine 30 MG Tab PO SCH (20:00)
[2020-04-04] MEDS ORDERED: QUEtiapine 100 MG Tab PO SCH ×2 (20:00)
[2020-04-04] MEDS ORDERED: GABAPENTIN 800 MG PO SCH (20:00)
[2020-04-04] MEDS ORDERED: traZODone 50 MG Tab PO SCH ×2 (20:00)
[2020-04-04] MEDS ORDERED: Insulin Glarg,Human.Rec.Analog 100 Unit/ML SUBCUT SCH (20:00)
[2020-04-04] MEDS: Polyethylene Glycol 3350 Powder 17 GM Packet PO SCH (20:56)
[2020-04-04] MEDS: busPIRone 15 MG Tab PO SCH (20:56)
[2020-04-04] MEDS: Warfarin 2.5 MG Tab PO SCH (20:58)
[2020-04-04] MEDS: Acetaminophen 325 MG Tab PO SCH (20:59)
[2020-04-04] MEDS: GABAPENTIN 600 MG PO SCH (21:03)
[2020-04-04] MEDS: BENZTROPINE 0.5 MG PO SCH (21:15)
[2020-04-04] MEDS: Insulin Glarg,Human.Rec.Analog 100 Unit/ML SUBCUT SCH (21:26)
[2020-04-05] MEDS: Sodium Chloride 0.9% 1,000 ML IV SCH ×3 (03:37→23:02)
[2020-04-05 08:09] LABS: ANION GAP 13.2 mmol/L (10-20)
--- NOTE | 2020-04-05 09:14 | PCM.PN ---
- General Info Date of Service: 04/05/20 Admission Dx/Problem (Free Text): Admission Diagnosis/Problem Admission Diagnosis/Problem # Sepsis suspected due to pneumonia # JJ Subjective Update: Segundo reports still feeling unwell this morning although slightly better than yesterday. Cough slightly improved overnight. Does still have rib pain with coughing. Complains of abdominal pain, nausea, early satiety. Did have episode of emesis last night: components of food (no blood/coffee-grounds). Stomach does feel a little more full this morning, but notes this is common with chronic constipation. Wondering about timeframe to discharge, noted we will expect a few more days but we will have to wait and see. - Review of Systems General: Reports: Fever, Weakness, Fatigue, Chills HEENT: Reports: No Symptoms Pulmonary: Reports: Shortness of Breath, Pleuritic Chest Pain, Cough Cardiovascular: Reports: No Symptoms Gastrointestinal: Reports: Constipation (chronic), Decreased Appetite, Nausea, Vomiting Genitourinary: Reports: No Symptoms Skin: Reports: No Symptoms Neurological: Reports: Tremors, Difficulty Walking (ambulates with walker), Weakness Psychiatric: Reports: No Symptoms - Patient Data Vitals - Most Recent: Last Vital Signs Temp 37.2 C 04/05/20 06:00 Pulse 73 04/05/20 06:00 Resp 18 04/05/20 06:00 BP 147/92 H 04/05/20 06:00 Pulse Ox 94 L 04/05/20 06:00 Weight - Most Recent: 116.12 kg I&O - Last 24 Hours: Intake & Output 04/04/20 04/05/20 04/05/20 22:59 06:59 14:59 Intake Total 360 160 Output Total 1075 1525 375 Balance -715 -1525 -215 Lab Results Last 24 Hours: Laboratory Results - last 24 hr 04/04/20 04/04/20 04/04/20 Range/Units 08:36 08:36 09:25 WBC (4.0-10.0) x10^3/uL RBC (4.5-6.0) x10^6/uL Hgb (14.0-18.0) g/dL Hct (40.0-52.0) % MCV (78.0-93.0) fL MCH (26.0-32.0) pg MCHC (32.0-36.0) g/dL RDW Coeff of Sharri (10.0-15.0) % Plt Count (130-400) x10^3/uL PT (9.5-12.3) SEC INR (2.0-3.5) Sodium 140 (136-145) mmol/L Potassium 4.6 (3.5-5.1) mmol/L Chloride 103 (98-107) mmol/L Carbon Dioxide 26 (21-32) mmol/L Anion Gap 15.6 (10-20) mmol/L BUN 24 H (7-18) mg/dL Creatinine 1.6 H (0.70-1.30) mg/dL Est Cr Clr Drug Dosing TNP Estimated GFR (MDRD) 45 Glucose 170 H (74-106) mg/dL POC Glucose (74-106) mg/dL Lactic Acid 2.3 H* (0.4-2.0) mmol/L Calcium 8.8 (8.5-10.1) mg/dL Corrected Calcium 8.80 (8.5-10.1) mg/dL Total Bilirubin 1.0 (0.2-1.0) mg/dL AST 26 (15-37) U/L ALT 57 (16-63) U/L Alkaline Phosphatase 67 (46-116) U/L Troponin I < 0.017 (<=0.056) ng/mL C-Reactive Protein (<=0.9) mg/dL NT-Pro-B Natriuret Pep 33 (<=125) pg/mL Total Protein 7.6 (6.4-8.2) g/dL Albumin 4.0 (3.4-5.0) g/dL Globulin 3.6 Albumin/Globulin Ratio 1.11 Urine Color Yellow (YELLOW) Urine Appearance Clear (CLEAR) Urine pH 5.5 (5.0-8.0) Ur Specific [place] 1.020 Urine Protein Negative (NEGATIVE) mg/dL Urine Glucose (UA) Negative (NEGATIVE) mg/dL Urine Ketones Negative (NEGATIVE) mg/dL Urine Occult Blood Negative (NEGATIVE) Urine Nitrite Negative (NEGATIVE) Urine Bilirubin Negative (NEGATIVE) Urine Urobilinogen 0.2 (0.2) EU/dL Ur Leukocyte Esterase Negative (NEGATIVE) 04/04/20 04/04/20 04/04/20 Range/Units 13:18 13:18 17:21 WBC (4.0-10.0) x10^3/uL RBC (4.5-6.0) x10^6/uL Hgb (14.0-18.0) g/dL Hct (40.0-52.0) % MCV (78.0-93.0) fL MCH (26.0-32.0) pg MCHC (32.0-36.0) g/dL RDW Coeff of Sharri (10.0-15.0) % Plt Count (130-400) x10^3/uL PT (9.5-12.3) SEC INR (2.0-3.5) Sodium (136-145) mmol/L Potassium (3.5-5.1) mmol/L Chloride (98-107) mmol/L Carbon Dioxide (21-32) mmol/L Anion Gap (10-20) mmol/L BUN (7-18) mg/dL Creatinine (0.70-1.30) mg/dL Est Cr Clr Drug Dosing Estimated GFR (MDRD) Glucose (74-106) mg/dL POC Glucose 124 H (74-106) mg/dL Lactic Acid 2.3 H* (0.4-2.0) mmol/L Calcium (8.5-10.1) mg/dL Corrected Calcium (8.5-10.1) mg/dL Total Bilirubin (0.2-1.0) mg/dL AST (15-37) U/L ALT (16-63) U/L Alkaline Phosphatase (46-116) U/L Troponin I (<=0.056) ng/mL C-Reactive Protein 5.4 H (<=0.9) mg/dL NT-Pro-B Natriuret Pep (<=125) pg/mL Total Protein (6.4-8.2) g/dL Albumin (3.4-5.0) g/dL Globulin Albumin/Globulin Ratio Urine Color (YELLOW) Urine Appearance (CLEAR) Urine pH (5.0-8.0) Ur Specific [place] Urine Protein (NEGATIVE) mg/dL Urine Glucose (UA) (NEGATIVE) mg/dL Urine Ketones (NEGATIVE) mg/dL Urine Occult Blood (NEGATIVE) Urine Nitrite (NEGATIVE) Urine Bilirubin (NEGATIVE) Urine Urobilinogen (0.2) EU/dL Ur Leukocyte Esterase (NEGATIVE) 04/04/20 04/05/20 04/05/20 Range/Units 18:02 07:04 07:33 WBC 11.8 H (4.0-10.0) x10^3/uL RBC 4.48 L (4.5-6.0) x10^6/uL Hgb 13.8 L D (14.0-18.0) g/dL Hct 41.4 (40.0-52.0) % MCV 92.4 (78.0-93.0) fL MCH 30.8 (26.0-32.0) pg MCHC 33.3 (32.0-36.0) g/dL RDW Coeff of Sharri 13.7 (10.0-15.0) % Plt Count 206 (130-400) x10^3/uL PT (9.5-12.3) SEC INR (2.0-3.5) Sodium (136-145) mmol/L Potassium (3.5-5.1) mmol/L Chloride (98-107) mmol/L Carbon Dioxide (21-32) mmol/L Anion Gap (10-20) mmol/L BUN (7-18) mg/dL Creatinine (0.70-1.30) mg/dL Est Cr Clr Drug Dosing Estimated GFR (MDRD) Glucose (74-106) mg/dL POC Glucose 110 H (74-106) mg/dL Lactic Acid 1.8 (0.4-2.0) mmol/L Calcium (8.5-10.1) mg/dL Corrected Calcium (8.5-10.1) mg/dL Total Bilirubin (0.2-1.0) mg/dL AST (15-37) U/L ALT (16-63) U/L Alkaline Phosphatase (46-116) U/L Troponin I (<=0.056) ng/mL C-Reactive Protein (<=0.9) mg/dL NT-Pro-B Natriuret Pep (<=125) pg/mL Total Protein (6.4-8.2) g/dL Albumin (3.4-5.0) g/dL Globulin Albumin/Globulin Ratio Urine Color (YELLOW) Urine Appearance (CLEAR) Urine pH (5.0-8.0) Ur Specific [place] Urine Protein (NEGATIVE) mg/dL Urine Glucose (UA) (NEGATIVE) mg/dL Urine Ketones (NEGATIVE) mg/dL Urine Occult Blood (NEGATIVE) Urine Nitrite (NEGATIVE) Urine Bilirubin (NEGATIVE) Urine Urobilinogen (0.2) EU/dL Ur Leukocyte Esterase (NEGATIVE) 04/05/20 04/05/20 Range/Units 07:33 07:33 WBC (4.0-10.0) x10^3/uL RBC (4.5-6.0) x10^6/uL Hgb (14.0-18.0) g/dL Hct (40.0-52.0) % MCV (78.0-93.0) fL MCH (26.0-32.0) pg MCHC (32.0-36.0) g/dL RDW Coeff of Sharri (10.0-15.0) % Plt Count (130-400) x10^3/uL PT 16.5 H (9.5-12.3) SEC INR 1.5 L (2.0-3.5) Sodium 143 (136-145) mmol/L Potassium 4.2 (3.5-5.1) mmol/L Chloride 106 (98-107) mmol/L Carbon Dioxide 28 (21-32) mmol/L Anion Gap 13.2 (10-20) mmol/L BUN 21 H (7-18) mg/dL Creatinine 1.5 H (0.70-1.30) mg/dL Est Cr Clr Drug Dosing 67.29 Estimated GFR (MDRD) 49 Glucose 115 H (74-106) mg/dL POC Glucose (74-106) mg/dL Lactic Acid (0.4-2.0) mmol/L Calcium 8.1 L (8.5-10.1) mg/dL Corrected Calcium (8.5-10.1) mg/dL Total Bilirubin (0.2-1.0) mg/dL AST (15-37) U/L ALT (16-63) U/L Alkaline Phosphatase (46-116) U/L Troponin I (<=0.056) ng/mL C-Reactive Protein (<=0.9) mg/dL NT-Pro-B Natriuret Pep (<=125) pg/mL Total Protein (6.4-8.2) g/dL Albumin (3.4-5.0) g/dL Globulin Albumin/Globulin Ratio Urine Color (YELLOW) Urine Appearance (CLEAR) Urine pH (5.0-8.0) Ur Specific [place] Urine Protein (NEGATIVE) mg/dL Urine Glucose (UA) (NEGATIVE) mg/dL Urine Ketones (NEGATIVE) mg/dL Urine Occult Blood (NEGATIVE) Urine Nitrite (NEGATIVE) Urine Bilirubin (NEGATIVE) Urine Urobilinogen (0.2) EU/dL Ur Leukocyte Esterase (NEGATIVE) Luís Results Last 24 Hours: Microbiology 04/04/20 08:41 Aerobic Blood Culture - Preliminary Blood - Venous - Lab Draw NO GROWTH AFTER 1 DAY Anaerobic Blood Culture - Preliminary NO GROWTH AFTER 1 DAY 04/04/20 08:36 Aerobic Blood Culture - Preliminary Blood - Venous NO GROWTH AFTER 1 DAY Anaerobic Blood Culture - Preliminary NO GROWTH AFTER 1 DAY Med Orders - Current: Current Medications Acetaminophen (Tylenol) 650 mg PO Q4H PRN PRN Reason: Pain (Mild 1-3)/fever Acetaminophen (Tylenol) 1,300 mg PO BEDTIME [facility] Last Admin: 04/04/20 20:59 Dose: 1,300 mg Documented by: Albuterol (Proventil Neb Soln) 2.5 mg INH Q6H PRN PRN Reason: Shortness of Breath Azithromycin (Zithromax) 500 mg PO DAILY [facility] Stop: 04/09/20 08:00 Buspirone HCl (Buspar) 15 mg PO BID [facility] Last Admin: 04/04/20 20:56 Dose: 15 mg Documented by: Carbidopa/Levodopa (Sinemet 25-250 Mg) 1 tab PO 0800,1100,1500 [facility] Last Admin: 04/04/20 15:00 Dose: 1 tab Documented by: Carbidopa/Levodopa (Sinemet Cr 50-200 Mg) 1 tab PO 0800 [facility] Cefuroxime Axetil (Ceftin) 500 mg PO BID [facility] Stop: 04/09/20 08:00 Finasteride (Proscar) 5 mg PO DAILY [facility] Sodium Chloride (Normal Saline) 1,000 mls @ 150 mls/hr IV ASDIRECTED [facility] Last Admin: 04/05/20 03:37 Dose: 150 mls/hr Documented by: Insulin Glargine (Lantus) 30 unit SUBCUT BEDTIME [facility] Last Admin: 04/04/20 21:26 Dose: 30 units Documented by: Insulin Human Lispro (Humalog) 5 unit SUBCUT TIDMEALS [facility] Last Admin: 04/04/20 19:08 Dose: Not Given Documented by: Lisinopril (Prinivil) 5 mg PO DAILY [facility] Magnesium Hydroxide (Milk Of Magnesia) 30 ml PO DAILY PRN PRN Reason: Constipation Metformin HCl (Glucophage) 500 mg PO BIDMEALS [facility] Last Admin: 04/04/20 19:05 Dose: 500 mg Documented by: Mirtazapine (Remeron) 30 mg PO 2300 [facility] (Alfuzosin Hcl [ Alfuzosin Hcl Er] 10 Mg)Own Med 10 mg PO DAILY [facility] Ondansetron HCl (Zofran Odt) 4 mg PO Q4H PRN PRN Reason: nausea, able to take PO Last Admin: 04/04/20 15:00 Dose: 4 mg Documented by: Pantoprazole Sodium (Protonix) 40 mg PO BIDMEALS [facility] Last Admin: 04/04/20 19:05 Dose: 40 mg Documented by: Paroxetine HCl (Paxil) 40 mg PO DAILY [facility] Last Admin: 04/04/20 13:52 Dose: 40 mg Documented by: Patient's Own Medication Alogliptin 25 Mg 1 each PO DAILY [facility] Last Admin: 04/04/20 19:07 Dose: 1 each Documented by: Patient's Own Medication Benztropine 0.5 Mg 1 each PO BID [facility] Last Admin: 04/04/20 21:15 Dose: 1 each Documented by: Patient's Own Medication Gabapentin 600 Mg 2 each PO BEDTIME [facility] Last Admin: 04/04/20 21:03 Dose: 2 each Documented by: Patient's Own Medication Gabapentin 800 Mg 1 each PO 0800,1200,1600 [facility] Polyethylene Glycol (Miralax) 17 gm PO BID [facility] Last Admin: 04/04/20 20:56 Dose: 17 gm Documented by: Quetiapine Fumarate (Seroquel) 50 mg PO 0800,1200,2300 [facility] Sodium Chloride (Saline Flush) 10 ml FLUSH ASDIRECTED PRN PRN Reason: Keep Vein Open Sodium Chloride (Saline Flush) 10 ml FLUSH ASDIRECTED PRN PRN Reason: Keep Vein Open Trazodone HCl (Trazodone) 75 mg PO 2300 [facility] Warfarin Sodium (Coumadin) 5 mg PO Mo@1999 [facility] Warfarin Sodium (Coumadin) 7.5 mg PO SuTuWeThFrSa@1999 [facility] Last Admin: 04/04/20 20:58 Dose: 7.5 mg Documented by: Zolpidem Tartrate (Ambien) 5 mg PO BEDTIME PRN PRN Reason: Insomnia Discontinued Medications Acetaminophen (Tylenol) 650 mg PO NOW ONE Stop: 04/04/20 10:15 Last Admin: 04/04/20 13:52 Dose: 650 mg Documented by: Albuterol (Ventolin Hfa) 0 gm INH Q6HR PRN PRN Reason: Shortness of Breath Ceftriaxone Sodium (Rocephin) 1 gm IVPUSH ONETIME ONE Stop: 04/04/20 08:15 Last Admin: 04/04/20 08:37 Dose: 1 gm Documented by: Sodium Chloride (Normal Saline) 1,000 mls @ 1,000 mls/hr IV ONETIME ONE Stop: 04/04/20 09:14 Last Admin: 04/04/20 08:36 Dose: 1,000 mls/hr Documented by: Azithromycin 500 mg/ Sodium (Chloride) 250 mls @ 250 mls/hr IV STAT STA Stop: 04/04/20 12:34 Last Admin: 04/04/20 13:52 Dose: 250 mls/hr Documented by: Insulin Glargine (Lantus) 36 unit SUBCUT BEDTIME [facility] Metformin HCl (Glucophage) 500 mg PO BIDMEALS [facility] Mirtazapine (Remeron) 30 mg PO BEDTIME [facility] Last Admin: 04/04/20 23:07 Dose: 30 mg Documented by: Non-Formulary Medication (Budesonide/Formoterol) 2 puff INH BID [facility] Non-Formulary Medication (Budesonide/Formoterol Fumarate) 2 puff INH BID [facility] Patient's Own Medication Gabapentin 800 Mg 1 each PO TID [facility] Last Admin: 04/04/20 21:17 Dose: Not Given Documented by: Quetiapine Fumarate (Seroquel) 100 mg PO TID [facility] Quetiapine Fumarate (Seroquel) 50 mg PO TID [facility] Last Admin: 04/04/20 23:18 Dose: 50 mg Documented by: Trazodone HCl (Trazodone) 25 mg PO BEDTIME [facility] Trazodone HCl (Trazodone) 75 mg PO BEDTIME [facility] Last Admin: 04/04/20 23:08 Dose: 75 mg Documented by: - Exam General: Alert, Oriented, Mild Distress (although does appear slightly improved from admission) HEENT: Pupils Equal, EOMI Neck: Supple Lungs: Crackles (appreciated in the right lung base) Cardiovascular: Regular Rate, Regular Rhythm GI/Abdominal Exam: Normal Bowel Sounds, Distended (mild), Tender (Epigastric/RUQ. No guarding or rebound. patient does note chronic constipation) Extremities: Normal Inspection, Non-Tender, No Pedal Edema Peripheral Pulses: 2+: Radial (L), Radial (R) Skin: Warm, Dry, Intact Neurological: No New Focal Deficit Psy/Mental Status: Alert, Normal Mood, Other (flat affect) Sepsis Event Note - Evaluation Sepsis Screening Result: No Definite Risk - Focused Exam Vital Signs: Vital Signs Temp Temp Pulse Resp BP Pulse Ox 04/05/20 06:00 37.2 C 73 18 147/92 H 94 L 04/05/20 02:00 36.5 C 81 18 130/79 91 L 04/04/20 22:00 37.4 C 77 18 150/95 H 95 Date Exam was Performed: 04/05/20 Time Exam was Performed: 09:16 - Problem List & Annotations (1) Sepsis SNOMED Code(s): 15527997 Code(s): A41.9 - SEPSIS, UNSPECIFIED ORGANISM Status: Resolved Current Visit: Yes (2) Pneumonia SNOMED Code(s): 525133851 Code(s): J18.9 - PNEUMONIA, UNSPECIFIED ORGANISM Status: Acute Priority: High Current Visit: Yes Qualifiers: Pneumonia type: due to unspecified organism Laterality: bilateral Lung location: lower lobe of lung Qualified Code(s): J18.9 - Pneumonia, unspecified organism (3) JJ (acute kidney injury) SNOMED Code(s): 40554480, 13174581 Code(s): N17.9 - ACUTE KIDNEY FAILURE, UNSPECIFIED Status: Acute Priority: Medium Current Visit: Yes (4) Diabetes mellitus type 2 SNOMED Code(s): 74996435 Code(s): E11.9 - TYPE 2 DIABETES MELLITUS WITHOUT COMPLICATIONS Status: Acute Current Visit: No (5) History of pulmonary embolus (PE) SNOMED Code(s): 654527438 Code(s): Z86.711 - PERSONAL HISTORY OF PULMONARY EMBOLISM Status: Acute Current Visit: Yes (6) Parkinson disease SNOMED Code(s): 30539513 Code(s): G20 - PARKINSON'S DISEASE Status: Acute Current Visit: Yes (7) Weakness SNOMED Code(s): 88035333 Code(s): R53.1 - WEAKNESS Status: Acute Current Visit: Yes (8) HTN (hypertension) SNOMED Code(s): 78962767 Code(s): I10 - ESSENTIAL (PRIMARY) HYPERTENSION Status: Acute Current Visit: Yes (9) HLD (hyperlipidemia) SNOMED Code(s): 41929539 Code(s): E78.5 - HYPERLIPIDEMIA, UNSPECIFIED Status: Acute Current Visit: Yes (10) Asthma SNOMED Code(s): 519221861 Code(s): J45.909 - UNSPECIFIED ASTHMA, UNCOMPLICATED Status: Acute Current Visit: Yes (11) PTSD (post-traumatic stress disorder) SNOMED Code(s): 66534070 Code(s): F43.10 - POST-TRAUMATIC STRESS DISORDER, UNSPECIFIED Status: Acute Current Visit: Yes (12) Depressive disorder SNOMED Code(s): 39273216 Code(s): F32.9 - MAJOR DEPRESSIVE DISORDER, SINGLE EPISODE, UNSPECIFIED Status: Acute Current Visit: No (13) BPH (benign prostatic hyperplasia) SNOMED Code(s): 306625189 Code(s): N40.0 - BENIGN PROSTATIC HYPERPLASIA WITHOUT LOWER URINRY TRACT SYMP Status: Acute Current Visit: Yes - Problem List Review Problem List Initiated/Reviewed/Updated: Yes - My Orders Last 24 Hours: My Active Orders 04/04/20 11:19 Patient Status [ADT] Routine Blood Glucose Check, Bedside [RC] 07,11,17 Oxygen Therapy [RC] 08,20 Vital Signs [RC] 06,10,14,18,22,02 Acetaminophen [Tylenol] 650 mg PO Q4H PRN Ondansetron [Zofran ODT] 4 mg PO Q4H PRN Sodium Chloride 0.9% [Saline Flush] 10 ml FLUSH ASDIRECTED PRN Peripheral IV Insertion Adult [OM.PC] Routine Resuscitation Status Routine 04/04/20 11:26 Pulse Oximetry [RC] 06,10,14,18,22,02 04/04/20 Lunch [employer] Diet [DIET] 04/04/20 11:38 Dietary Supplements [RC] 1130,1730 04/04/20 11:45 Sodium Chloride 0.9% [Normal Saline] 1,000 ml IV ASDIRECTED 04/04/20 12:20 Magnesium Hydroxide [Milk of Magnesia] 30 ml PO DAILY PRN Zolpidem [Ambien] 5 mg PO BEDTIME PRN 04/04/20 12:30 PARoxetine [Paxil] 40 mg PO DAILY Patient's Own Medication [Ptom] 1 each PO DAILY 04/04/20 15:00 Carbidopa/Levodopa [Sinemet 25-250 mg] 1 tab PO 0800,1100,1500 04/04/20 15:45 Albuterol [Proventil Neb Soln] 2.5 mg INH Q6H PRN 04/04/20 18:00 Insulin Lispro [HumaLOG] 5 unit SUBCUT TIDMEALS Pantoprazole [ProTONIX] 40 mg PO BIDMEALS metFORMIN [Glucophage] 500 mg PO BIDMEALS 04/04/20 20:00 Acetaminophen [Tylenol] 1,300 mg PO BEDTIME Insulin Glarg,Human.Rec.Analog [LantUS] 30 unit SUBCUT BEDTIME Patient's Own Medication [Ptom] 1 each PO BID Patient's Own Medication [Ptom] 2 each PO BEDTIME Warfarin [Coumadin] 7.5 mg PO [id number]@2000 busPIRone [Buspar] 15 mg PO BID polyethylene glycoL 3350 [MiraLAX] 17 gm PO BID 04/05/20 08:00 Alfuzosin HCl [Alfuzosin HCl ER] 10 mg PO DAILY Azithromycin [Zithromax] 500 mg PO DAILY Carbidopa/Levodopa [Sinemet Cr 50-200 mg] 1 tab PO 0800 Finasteride [Proscar] 5 mg PO DAILY Patient's Own Medication [Ptom] 1 each PO 0800,1200,1600 QUEtiapine [SEROqueL] 50 mg PO 0800,1200,2300 lisinopriL [Prinivil] 5 mg PO DAILY 04/05/20 23:00 Mirtazapine [Remeron] 30 mg PO 2300 traZODone 75 mg PO 2300 07/05/20 08:00 Cefuroxime [Ceftin] 500 mg PO BID 04/07/20 20:00 Warfarin [Coumadin] 5 mg PO Mo@1999 - Plan Plan:: Acute: # Sepsis, RESOLVED # Pneumonia - Elevated LA, tachycardic, reported fever at time of admit. COVID negative. CXR: bibasilar atelectasis. CRP elevated. - Patient did have resolution of Sepsis overnight, LA improved with abx and IVF. However WBC did go up this morning. Tmax 99 overnight Plan: - Blood cultures pending - Procal pending - IVF: decrease to 100mL/hr - Antibiotics: IV rocephin (second dose) today. to be followed by 4 days of PO Cefuroxime. Azithro PO today for 5 days (Abx set to finish on 04/09) - Recheck CBC in the pm/am - Tylenol PRN for pain/fever # Abdominal Pain (constipation?) - Patient c/o chronic constipation with some distension. LFTs/bili normal on admit. - However, given bump in WBC and abdominal pains we will check a lipase as well as another CRP today. If elevated or if patient has worsening abdominal symptoms we will have short trigger to order abdominal CT - Not an acute surgical abdomen at this time. Plan: - Lipase and CRP added to morning labs - Consideration of abdominal CT if clinically worsening. - Repeat cbc in the pm/am # CKD - Review of DC records demonstrates numbers to be worse than previously seen in [facility]. - Given resolution of sepsis will cut back on fluids today. Plan: - IVF at 100 - Recheck BMP in the am - Holding home celebrex Chronic: #Type 2 diabetes, insulin dependent - continue home metformin, alogliptin, empagliflozin. 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
[2020-04-05] MEDS: Polyethylene Glycol 3350 Powder 17 GM Packet PO SCH ×2 (09:18→20:21)
[2020-04-05] MEDS: busPIRone 15 MG Tab PO SCH ×2 (09:18→20:20)
[2020-04-05] MEDS: metFORMIN 500 MG Tab PO SCH ×2 (09:18→17:40)
[2020-04-05] MEDS: Lisinopril 10 MG Tab PO SCH (09:19)
[2020-04-05] MEDS: Azithromycin 250 MG Tab PO SCH (09:19)
[2020-04-05] MEDS: PARoxetine 20 MG Tab PO SCH (09:21)
[2020-04-05] MEDS: Finasteride 5 MG Tab PO SCH (09:21)
[2020-04-05] MEDS: Pantoprazole 40 MG Tab.CR PO SCH ×2 (09:21→17:40)
[2020-04-05] MEDS: Carbidopa/Levodopa 50-200 MG Tab.ER PO SCH (09:21)
[2020-04-05] MEDS: BENZTROPINE 0.5 MG PO SCH ×2 (09:23→20:22)
[2020-04-05] MEDS: ALOGLIPTIN 25 MG PO SCH (09:23)
[2020-04-05] MEDS: ALFUZOSIN HCL 10 MG PO SCH (09:23)
[2020-04-05] MEDS: Insulin Lispro 100 Units/ML 3 ML Vial SUBCUT SCH ×3 (09:25→17:32)
[2020-04-05] MEDS: GABAPENTIN 800 MG PO SCH ×3 (09:27→16:35)
[2020-04-05] MEDS: QUEtiapine 100 MG Tab PO SCH ×3 (09:37→22:47)
[2020-04-05] MEDS: Carbidopa/Levodopa 25-250 MG Tab PO SCH ×3 (09:55→16:36)
[2020-04-05] MEDS ORDERED: Iopamidol 612 MG/ML 100 ML Bottle IVPUSH ONE (10:25)
--- NOTE | 2020-04-05 11:27 | CT ---
[id number] CT/CT Abdomen Pelvis W IV EXAM: ABDOMEN AND PELVIS CT WITH CONTRAST INDICATION: Abdominal pain, distention, leukocytosis and elevated CRP. COMPARISON: June 03, 2015. DISCUSSION: Partially imaged multifocal groundglass opacities and infiltrates in the right middle and lower lobe are consistent with pneumonia. Changes of previous Yordy fundoplication. A portion of the GE junction has slipped into a small hiatus hernia, but the wrap remains below the diaphragm. The liver is prominent in size and demonstrates stable moderate fatty infiltration. Trace free fluid in the pelvis is of uncertain etiology. Small fat-containing left inguinal hernia. There is a mildly elevated stool volume throughout the majority of the colon sparing the rectum and distal sigmoid segments. The gallbladder, spleen, pancreas, adrenal glands, kidneys, small bowel and the appendix are normal in appearance. No adenopathy or free air. Scattered degenerative changes in the spine and in both hips. The osseous structures are otherwise unremarkable. IMPRESSION: 1. Right middle and lower lobe pneumonia. 2. Mild fecal retention throughout the majority of the colon. 3. Trace nonspecific free fluid in the pelvis. Goldy Rivera MD 04/05/20 1126 Thank you for allowing us to participate in the care of your patient.
[2020-04-05] MEDS: Magnesium Hydroxide 400 MG/5 ML Susp 30 ML Cup PO PRN (13:15)
[2020-04-05] MEDS: Amoxicillin/Clavulanate K 875-125 MG Tab PO SCH (20:19)
[2020-04-05] MEDS: Warfarin 2.5 MG Tab PO SCH (20:20)
[2020-04-05] MEDS: GABAPENTIN 600 MG PO SCH (20:22)
[2020-04-05] MEDS: Acetaminophen 325 MG Tab PO SCH (20:23)
[2020-04-05] MEDS: Insulin Glarg,Human.Rec.Analog 100 Unit/ML SUBCUT SCH (20:26)
[2020-04-05] MEDS: traZODone 50 MG Tab PO SCH (22:48)
[2020-04-05] MEDS: Mirtazapine 30 MG Tab PO SCH (22:50)
[2020-04-06] MEDS ORDERED: Cefuroxime 250 MG Tab PO SCH (08:00)
[2020-04-06] MEDS: Insulin Lispro 100 Units/ML 3 ML Vial SUBCUT SCH ×3 (08:55→17:07)
[2020-04-06] MEDS: Polyethylene Glycol 3350 Powder 17 GM Packet PO SCH ×2 (08:56→21:14)
[2020-04-06] MEDS: Pantoprazole 40 MG Tab.CR PO SCH ×2 (08:58→17:08)
[2020-04-06] MEDS: Amoxicillin/Clavulanate K 875-125 MG Tab PO SCH ×2 (08:58→21:16)
[2020-04-06] MEDS: Carbidopa/Levodopa 50-200 MG Tab.ER PO SCH (08:58)
[2020-04-06] MEDS: Azithromycin 250 MG Tab PO SCH (08:58)
[2020-04-06] MEDS: Carbidopa/Levodopa 25-250 MG Tab PO SCH ×3 (08:58→17:08)
[2020-04-06] MEDS: PARoxetine 20 MG Tab PO SCH (08:58)
[2020-04-06] MEDS: metFORMIN 500 MG Tab PO SCH ×2 (08:58→17:08)
[2020-04-06] MEDS: Finasteride 5 MG Tab PO SCH (08:59)
[2020-04-06] MEDS: Lisinopril 10 MG Tab PO SCH (08:59)
[2020-04-06] MEDS: QUEtiapine 100 MG Tab PO SCH ×3 (09:00→22:56)
[2020-04-06] MEDS: busPIRone 15 MG Tab PO SCH ×2 (09:00→21:16)
[2020-04-06] MEDS: GABAPENTIN 800 MG PO SCH ×3 (09:00→17:08)
[2020-04-06] MEDS: BENZTROPINE 0.5 MG PO SCH ×2 (09:01→21:20)
[2020-04-06] MEDS: ALOGLIPTIN 25 MG PO SCH (09:01)
[2020-04-06] MEDS: ALFUZOSIN HCL 10 MG PO SCH (09:01)
[2020-04-06] MEDS: Magnesium Hydroxide 400 MG/5 ML Susp 30 ML Cup PO PRN (09:06)
--- NOTE | 2020-04-06 09:14 | PCM.PN ---
- General Info Date of Service: 04/06/20 Admission Dx/Problem (Free Text): Admission Diagnosis/Problem Admission Diagnosis/Problem # Sepsis suspected due to pneumonia # JJ Subjective Update: Patient reports feeling better this morning. Notes a few chills last night, but no more fevers/sweats. Abdominal pain/distension still present but discussed stool burden on CT yesterday; will try to elicit BM today. Breathing better, less coughing overnight. He did endorse that he has had a history of feeling like food has gone down the wrong pipe in the past, unable to recall fully if this happened in the days leading up to his hospitalization. I discussed with him my concerns about this and how the antibiotics were changed to cover for this. - Review of Systems General: Reports: Chills HEENT: Reports: No Symptoms Pulmonary: Reports: No Symptoms (Cough and SOB improved, rib pain less so without cough) Cardiovascular: Reports: No Symptoms Gastrointestinal: Reports: Abdominal Pain, Constipation Genitourinary: Reports: No Symptoms (good urine output per nursing (recieved IV contrast yesterday, morning labs not yet back)) Musculoskeletal: Reports: No Symptoms Skin: Reports: No Symptoms Neurological: Reports: No Symptoms Psychiatric: Reports: No Symptoms - Patient Data Vitals - Most Recent: Last Vital Signs Temp 36.3 C 04/06/20 06:00 Pulse 57 L 04/06/20 06:00 Resp 20 04/06/20 06:00 BP 120/73 04/06/20 08:59 Pulse Ox 94 L 04/06/20 06:00 Weight - Most Recent: 116.12 kg I&O - Last 24 Hours: Intake & Output 04/05/20 04/06/20 04/06/20 22:59 06:59 14:59 Intake Total 1063 1180 160 Output Total 1525 1675 375 Balance -462 -346 -215 Lab Results Last 24 Hours: Laboratory Results - last 24 hr 04/04/20 04/05/20 04/05/20 Range/Units 08:36 07:33 10:01 WBC (4.0-10.0) x10^3/uL RBC (4.5-6.0) x10^6/uL Hgb (14.0-18.0) g/dL Hct (40.0-52.0) % MCV (78.0-93.0) fL MCH (26.0-32.0) pg MCHC (32.0-36.0) g/dL RDW Coeff of Sharri (10.0-15.0) % Plt Count (130-400) x10^3/uL Neut % (Auto) (50.0-80.0) % Lymph % (Auto) (25.0-50.0) % [place] % (Auto) (2.0-11.0) % Eos % (Auto) (0.0-4.0) % Baso % (Auto) (0.2-1.2) % POC Glucose (74-106) mg/dL Lactic Acid 1.0 (0.4-2.0) mmol/L C-Reactive Protein 20.4 H (<=0.9) mg/dL Lipase 116 (73-393) U/L Procalcitonin 0.48 H (<0.10) ng/mL 04/05/20 04/05/20 04/05/20 Range/Units 11:25 14:53 17:04 WBC 11.0 H (4.0-10.0) x10^3/uL RBC 4.19 L (4.5-6.0) x10^6/uL Hgb 12.7 L (14.0-18.0) g/dL Hct 38.9 L (40.0-52.0) % MCV 92.8 (78.0-93.0) fL MCH 30.3 (26.0-32.0) pg MCHC 32.6 (32.0-36.0) g/dL RDW Coeff of Sharri 13.5 (10.0-15.0) % Plt Count 195 (130-400) x10^3/uL Neut % (Auto) 70.0 (50.0-80.0) % Lymph % (Auto) 20.0 L (25.0-50.0) % [place] % (Auto) 8.0 (2.0-11.0) % Eos % (Auto) 1.7 (0.0-4.0) % Baso % (Auto) 0.3 (0.2-1.2) % POC Glucose 116 H 138 H (74-106) mg/dL Lactic Acid (0.4-2.0) mmol/L C-Reactive Protein (<=0.9) mg/dL Lipase (73-393) U/L Procalcitonin (<0.10) ng/mL 04/06/20 04/06/20 Range/Units 06:25 07:50 WBC 8.2 (4.0-10.0) x10^3/uL RBC 4.59 (4.5-6.0) x10^6/uL Hgb 13.9 L (14.0-18.0) g/dL Hct 42.5 (40.0-52.0) % MCV 92.6 (78.0-93.0) fL MCH 30.3 (26.0-32.0) pg MCHC 32.7 (32.0-36.0) g/dL RDW Coeff of Sharri 13.6 (10.0-15.0) % Plt Count 208 (130-400) x10^3/uL Neut % (Auto) 57.3 (50.0-80.0) % Lymph % (Auto) 31.0 (25.0-50.0) % [place] % (Auto) 8.3 (2.0-11.0) % Eos % (Auto) 3.2 (0.0-4.0) % Baso % (Auto) 0.2 (0.2-1.2) % POC Glucose 117 H (74-106) mg/dL Lactic Acid (0.4-2.0) mmol/L C-Reactive Protein (<=0.9) mg/dL Lipase (73-393) U/L Procalcitonin (<0.10) ng/mL Luís Results Last 24 Hours: Microbiology 04/04/20 08:41 Aerobic Blood Culture - Preliminary Blood - Venous - Lab Draw NO GROWTH AFTER 2 DAYS Anaerobic Blood Culture - Preliminary NO GROWTH AFTER 2 DAYS 04/04/20 08:36 Aerobic Blood Culture - Preliminary Blood - Venous NO GROWTH AFTER 2 DAYS Anaerobic Blood Culture - Preliminary NO GROWTH AFTER 2 DAYS Med Orders - Current: Current Medications Acetaminophen (Tylenol) 650 mg PO Q4H PRN PRN Reason: Pain (Mild 1-3)/fever Acetaminophen (Tylenol) 1,300 mg PO BEDTIME JA[facility]IN Last Admin: 04/05/20 20:23 Dose: 1,300 mg Documented by: Albuterol (Proventil Neb Soln) 2.5 mg INH Q6H PRN PRN Reason: Shortness of Breath Amoxicillin/Clavulanate Potassium (Augmentin 875 Mg/125 Mg) 1 tab PO Q12HR [facility] Stop: 04/09/20 23:59 Last Admin: 04/06/20 08:58 Dose: 1 tab Documented by: Azithromycin (Zithromax) 500 mg PO DAILY [facility] Stop: 04/09/20 08:00 Last Admin: 04/06/20 08:58 Dose: 500 mg Documented by: Buspirone HCl (Buspar) 15 mg PO BID [facility] Last Admin: 04/06/20 09:00 Dose: 15 mg Documented by: Carbidopa/Levodopa (Sinemet 25-250 Mg) 1 tab PO 0800,1100,1500 [facility] Last Admin: 04/06/20 08:58 Dose: 1 tab Documented by: Carbidopa/Levodopa (Sinemet Cr 50-200 Mg) 1 tab PO 0800 [facility] Last Admin: 04/06/20 08:58 Dose: 1 tab Documented by: Finasteride (Proscar) 5 mg PO DAILY [facility] Last Admin: 04/06/20 08:59 Dose: 5 mg Documented by: Sodium Chloride (Normal Saline) 1,000 mls @ 100 mls/hr IV ASDIRECTED [facility] Last Admin: 04/05/20 23:02 Dose: 100 mls/hr Documented by: Insulin Glargine (Lantus) 30 unit SUBCUT BEDTIME [facility] Last Admin: 04/05/20 20:26 Dose: 30 units Documented by: Insulin Human Lispro (Humalog) 5 unit SUBCUT TIDMEALS [facility] Last Admin: 04/06/20 08:55 Dose: 5 units Documented by: Lisinopril (Prinivil) 5 mg PO DAILY [facility] Last Admin: 04/06/20 08:59 Dose: 5 mg Documented by: Magnesium Hydroxide (Milk Of Magnesia) 30 ml PO DAILY PRN PRN Reason: Constipation Last Admin: 04/06/20 09:06 Dose: 30 ml Documented by: Metformin HCl (Glucophage) 500 mg PO BIDMEALS [facility] Last Admin: 04/06/20 08:58 Dose: 500 mg Documented by: Mirtazapine (Remeron) 30 mg PO 2300 [facility] Last Admin: 04/05/20 22:50 Dose: 30 mg Documented by: (Alfuzosin Hcl [ Alfuzosin Hcl Er] 10 Mg)Own Med 10 mg PO DAILY [facility] Last Admin: 04/06/20 09:01 Dose: 10 mg Documented by: Ondansetron HCl (Zofran Odt) 4 mg PO Q4H PRN PRN Reason: nausea, able to take PO Last Admin: 04/04/20 15:00 Dose: 4 mg Documented by: Pantoprazole Sodium (Protonix) 40 mg PO BIDMEALS [facility] Last Admin: 04/06/20 08:58 Dose: 40 mg Documented by: Paroxetine HCl (Paxil) 40 mg PO DAILY [facility] Last Admin: 04/06/20 08:58 Dose: 40 mg Documented by: Patient's Own Medication Alogliptin 25 Mg 1 each PO DAILY [facility] Last Admin: 04/06/20 09:01 Dose: 1 each Documented by: Patient's Own Medication Benztropine 0.5 Mg 1 each PO BID [facility] Last Admin: 04/06/20 09:01 Dose: 1 each Documented by: Patient's Own Medication Gabapentin 600 Mg 2 each PO BEDTIME [facility] Last Admin: 04/05/20 20:22 Dose: 2 each Documented by: Patient's Own Medication Gabapentin 800 Mg 1 each PO 0800,1200,1600 [facility] Last Admin: 04/06/20 09:00 Dose: 1 each Documented by: Polyethylene Glycol (Miralax) 17 gm PO BID [facility] Last Admin: 04/06/20 08:56 Dose: 17 gm Documented by: Quetiapine Fumarate (Seroquel) 50 mg PO 0800,1200,2300 [facility] Last Admin: 04/06/20 09:00 Dose: 50 mg Documented by: Sodium Chloride (Saline Flush) 10 ml FLUSH ASDIRECTED PRN PRN Reason: Keep Vein Open Sodium Chloride (Saline Flush) 10 ml FLUSH ASDIRECTED PRN PRN Reason: Keep Vein Open Trazodone HCl (Trazodone) 75 mg PO 2300 [facility] Last Admin: 04/05/20 22:48 Dose: 75 mg Documented by: Warfarin Sodium (Coumadin) 5 mg PO Mo@1999 [facility] Warfarin Sodium (Coumadin) 7.5 mg PO SuTuWeThFrSa@1999 [facility] Last Admin: 04/05/20 20:20 Dose: 7.5 mg Documented by: Zolpidem Tartrate (Ambien) 5 mg PO BEDTIME PRN PRN Reason: Insomnia Discontinued Medications Acetaminophen (Tylenol) 650 mg PO NOW ONE Stop: 04/04/20 10:15 Last Admin: 04/04/20 13:52 Dose: 650 mg Documented by: Albuterol (Ventolin Hfa) 0 gm INH Q6HR PRN PRN Reason: Shortness of Breath Ceftriaxone Sodium (Rocephin) 1 gm IVPUSH ONETIME ONE Stop: 04/04/20 08:15 Last Admin: 04/04/20 08:37 Dose: 1 gm Documented by: Cefuroxime Axetil (Ceftin) 500 mg PO BID [facility] Stop: 04/09/20 08:00 Sodium Chloride (Normal Saline) 1,000 mls @ 1,000 mls/hr IV ONETIME ONE Stop: 04/04/20 09:14 Last Admin: 04/04/20 08:36 Dose: 1,000 mls/hr Documented by: Azithromycin 500 mg/ Sodium (Chloride) 250 mls @ 250 mls/hr IV STAT STA Stop: 04/04/20 12:34 Last Admin: 04/04/20 13:52 Dose: 250 mls/hr Documented by: Insulin Glargine (Lantus) 36 unit SUBCUT BEDTIME [facility] Iopamidol (Isovue-300 (61%)) 100 ml IVPUSH ONETIME ONE Stop: 04/05/20 10:26 Last Admin: 04/05/20 10:42 Dose: 100 ml Documented by: Metformin HCl (Glucophage) 500 mg PO BIDMEALS [facility] Mirtazapine (Remeron) 30 mg PO BEDTIME [facility] Last Admin: 04/04/20 23:07 Dose: 30 mg Documented by: Non-Formulary Medication (Budesonide/Formoterol) 2 puff INH BID [facility] Non-Formulary Medication (Budesonide/Formoterol Fumarate) 2 puff INH BID [facility] Patient's Own Medication Gabapentin 800 Mg 1 each PO TID [facility] Last Admin: 04/04/20 21:17 Dose: Not Given Documented by: Quetiapine Fumarate (Seroquel) 100 mg PO TID [facility] Quetiapine Fumarate (Seroquel) 50 mg PO TID [facility] Last Admin: 04/04/20 23:18 Dose: 50 mg Documented by: Trazodone HCl (Trazodone) 25 mg PO BEDTIME [facility] Trazodone HCl (Trazodone) 75 mg PO BEDTIME [facility] Last Admin: 04/04/20 23:08 Dose: 75 mg Documented by: - Exam General: Alert, Oriented HEENT: Pupils Equal, EOMI, Mucous Membr. Moist/[place] Neck: Supple Lungs: Normal Respiratory Effort, Crackles (right lung base) Cardiovascular: Regular Rate, Regular Rhythm GI/Abdominal Exam: Normal Bowel Sounds, Distended (stable from yesterday) Back Exam: Normal Inspection Extremities: Normal Inspection, No Pedal Edema Skin: Warm, Dry, Intact Wound/Incisions: Healing Well Neurological: No New Focal Deficit Psy/Mental Status: Alert, Normal Mood, Other (flat affect) Sepsis Event Note - Evaluation Sepsis Screening Result: No Definite Risk - Focused Exam Vital Signs: Vital Signs Temp Pulse Resp BP BP Pulse Ox 04/06/20 08:59 120/73 04/06/20 06:00 36.3 C 57 L 20 117/73 94 L 04/06/20 02:00 36.3 C 74 18 137/91 H 94 L 04/05/20 22:00 36.8 C 71 16 128/86 96 Date Exam was Performed: 04/06/20 Time Exam was Performed: 09:23 - Problem List & Annotations (1) Sepsis SNOMED Code(s): 03569299 Code(s): A41.9 - SEPSIS, UNSPECIFIED ORGANISM Status: Resolved Current Visit: Yes (2) Pneumonia SNOMED Code(s): 072708319 Code(s): J18.9 - PNEUMONIA, UNSPECIFIED ORGANISM Status: Acute Priority: High Current Visit: Yes Qualifiers: Pneumonia type: due to unspecified organism Laterality: bilateral Lung location: lower lobe of lung Qualified Code(s): J18.9 - Pneumonia, unspecified organism (3) JJ (acute kidney injury) SNOMED Code(s): 74398545, 53260555 Code(s): N17.9 - ACUTE KIDNEY FAILURE, UNSPECIFIED Status: Resolved Priority: Medium Current Visit: Yes (4) Diabetes mellitus type 2 SNOMED Code(s): 83730773 Code(s): E11.9 - TYPE 2 DIABETES MELLITUS WITHOUT COMPLICATIONS Status: Acute Current Visit: No (5) History of pulmonary embolus (PE) SNOMED Code(s): 931488257 Code(s): Z86.711 - PERSONAL HISTORY OF PULMONARY EMBOLISM Status: Acute Current Visit: Yes (6) Parkinson disease SNOMED Code(s): 74274152 Code(s): G20 - PARKINSON'S DISEASE Status: Acute Current Visit: Yes (7) Weakness SNOMED Code(s): 20046205 Code(s): R53.1 - WEAKNESS Status: Acute Current Visit: Yes (8) HTN (hypertension) SNOMED Code(s): 85121135 Code(s): I10 - ESSENTIAL (PRIMARY) HYPERTENSION Status: Acute Current Visit: Yes (9) HLD (hyperlipidemia) SNOMED Code(s): 03749451 Code(s): E78.5 - HYPERLIPIDEMIA, UNSPECIFIED Status: Acute Current Visit: Yes (10) Asthma SNOMED Code(s): 265601354 Code(s): J45.909 - UNSPECIFIED ASTHMA, UNCOMPLICATED Status: Acute Current Visit: Yes (11) PTSD (post-traumatic stress disorder) SNOMED Code(s): 14605969 Code(s): F43.10 - POST-TRAUMATIC STRESS DISORDER, UNSPECIFIED Status: Acute Current Visit: Yes (12) Depressive disorder SNOMED Code(s): 86612109 Code(s): F32.9 - MAJOR DEPRESSIVE DISORDER, SINGLE EPISODE, UNSPECIFIED Status: Acute Current Visit: No (13) BPH (benign prostatic hyperplasia) SNOMED Code(s): 775731444 Code(s): N40.0 - BENIGN PROSTATIC HYPERPLASIA WITHOUT LOWER URINRY TRACT SYMP Status: Acute Current Visit: Yes - Problem List Review Problem List Initiated/Reviewed/Updated: Yes - My Orders Last 24 Hours: My Active Orders 04/05/20 12:06 Consult to Speech Language Pathology [[employer]TAIL [employer]ISING [employer] EXECUTIVE Evaluation and Treatment] [CONS] Routine 04/05/20 20:00 Amoxicillin/Clavulanate K [Augmentin 875 MG/125 MG] 1 tab PO Q12HR 04/05/20 23:00 Mirtazapine [Remeron] 30 mg PO 2300 traZODone 75 mg PO 2300 04/07/20 20:00 Warfarin [Coumadin] 5 mg PO Mo@1999 - Plan Plan:: Acute: # Sepsis, RESOLVED # Pneumonia - Patient reporting symptom improvement. Labs and vitals improved. - CT abdomen demonstrated pneumonia of RLL/RML - S/P Rocephin 1g IV x2 doses and Azithro IV x2 dose Plan: - Blood cultures: no growth at 48hr - Procal pending - Antibiotics: Augmentin PO (coverage for CAP/?aspiration) and Azithro PO (Abx set to finish on 04/09) - Recheck CBC in the am - Tylenol PRN for pain/fever # Abdominal Pain/Distension (constipation) - Patient c/o chronic constipation with some distension. LFTs/bili normal on admit. - On 04/05 bump in WBC, CRP, and increased abdominal pains/distension we did grab a CT abdomen which was negative for any acute findings other than significant stool burden Plan: - Bowel regiment # CKD - Review of [place] records demonstrates numbers to be worse than previously seen in [facility] (baseline 1.4-1.6) - Patient did recieve IV contrast yesterday, BMP pending Plan: - Pending BMP, will put fluids to saline lock and encourage oral intake Chronic: #Type 2 diabetes, insulin dependent - continue home metformin, alogliptin, empagliflozin. 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
[2020-04-06 09:30] LABS: ANION GAP 11.2 mmol/L (10-20)
[2020-04-06] MEDS: Ondansetron 4 MG Tab.DIS PO PRN (11:16)
[2020-04-06] MEDS ORDERED: Gabapentin 400 MG Cap ONE (19:52)
[2020-04-06] MEDS: Insulin Glarg,Human.Rec.Analog 100 Unit/ML SUBCUT SCH (21:14)
[2020-04-06] MEDS: Warfarin 2.5 MG Tab PO SCH (21:15)
[2020-04-06] MEDS: GABAPENTIN 600 MG PO SCH (21:15)
[2020-04-06] MEDS: Acetaminophen 325 MG Tab PO SCH (21:17)
[2020-04-06] MEDS: Sodium Chloride 0.9% 10 ML Syringe FLUSH PRN (21:25)
[2020-04-06] MEDS: Mirtazapine 30 MG Tab PO SCH (22:55)
[2020-04-06] MEDS: traZODone 50 MG Tab PO SCH (22:56)
[2020-04-07 07:07] LABS: ANION GAP 13.2 mmol/L (10-20)
[2020-04-07] MEDS: Insulin Lispro 100 Units/ML 3 ML Vial SUBCUT SCH ×2 (08:24→11:29)
[2020-04-07] MEDS: Polyethylene Glycol 3350 Powder 17 GM Packet PO SCH (08:25)
[2020-04-07] MEDS: GABAPENTIN 800 MG PO SCH ×2 (08:26→11:31)
[2020-04-07] MEDS: ALFUZOSIN HCL 10 MG PO SCH (08:27)
[2020-04-07] MEDS: BENZTROPINE 0.5 MG PO SCH (08:27)
[2020-04-07] MEDS: Sodium Chloride 0.9% 10 ML Syringe FLUSH PRN (08:27)
[2020-04-07] MEDS: ALOGLIPTIN 25 MG PO SCH (08:27)
[2020-04-07] MEDS: metFORMIN 500 MG Tab PO SCH (08:28)
[2020-04-07] MEDS: QUEtiapine 100 MG Tab PO SCH ×2 (08:28→11:27)
[2020-04-07] MEDS: Carbidopa/Levodopa 50-200 MG Tab.ER PO SCH (08:29)
[2020-04-07] MEDS: Pantoprazole 40 MG Tab.CR PO SCH (08:29)
[2020-04-07] MEDS: Azithromycin 250 MG Tab PO SCH (08:29)
[2020-04-07] MEDS: Lisinopril 10 MG Tab PO SCH (08:30)
[2020-04-07] MEDS: Amoxicillin/Clavulanate K 875-125 MG Tab PO SCH (08:30)
[2020-04-07] MEDS: PARoxetine 20 MG Tab PO SCH (08:30)
[2020-04-07] MEDS: busPIRone 15 MG Tab PO SCH (08:30)
[2020-04-07] MEDS: Carbidopa/Levodopa 25-250 MG Tab PO SCH ×2 (08:30→11:28)
[2020-04-07] MEDS: Finasteride 5 MG Tab PO SCH (08:32)
--- NOTE | 2020-04-07 10:04 | PCM.DCSUM1 ---
Discharge Summary - Hospital Course Brief History: Mr. Forrester is a 54 yo male who was admitted for pneumonia after presenting to the ER for evaluation of a cough and shortness of breath. COVID negative in the ER. - Discharge Data Discharge Date: 04/07/20 Discharge Disposition: Home, Self-Care 01 Condition: Good - Referral to Home Health Primary Care Physician: Jm Mccormack MD - Patient Summary/Data Operative Procedure(s) Performed: none Complications: none Consults: Consultations 04/05/20 12:06 Consult to Speech Language Pathology [[employer] ASSIST[employer] Evaluation and Treatment] [CONS] Routine Labs Pending at D/C: none Recommended Follow-up Testing/Procedures: none Planned Operative Procedure(s) after DC: none Hospital Course: Mr. Forrester was admitted and treated with IV fluids as well as IV antibiotics for his pneumonia. He was then transitioned to oral antibiotics without any incident. His cough and shortness of breath have progressively improved. He is eating well and his strength is at baseline. His hospitalization was complicated by abdominal pain for which a CT abdomen/pelvis was done showing no intra- abdominal pathology and confirming his right lower and middle lobe pneumonia. He has not had a bowel movement since admission but states this is not unusual for him. He has not had any nausea or vomiting. His home medications were continued. His hospital stay was otherwise uncomplicated. He will be discharged home today to follow up in clinic with his PCP in 1 week. - Patient Instructions Diet: Usual Diet as Tolerated Activity: As Tolerated - Discharge Plan *PRESCRIPTION DRUG MONITORING PROGRAM REVIEWED*: Not Applicable *COPY OF PRESCRIPTION DRUG MONITORING REPORT IN PATIENT YVONNE: Not Applicable Prescriptions/Med Rec: Amoxicillin/Clavulanate K [Augmentin 875-125 MG] 1 tab PO Q12HR #6 tablet Azithromycin [Zithromax] 250 mg PO DAILY #2 tablet Home Medications: Home Meds Albuterol [Ventolin HFA] 2 puff INH Q6HR PRN 07/15/14 [History] Insulin Glarg,Human.Rec.Analog [Lantus] 36 unit SUBCUT BEDTIME 07/15/14 [History] Lisinopril 5 mg PO DAILY 02/24/15 [History] PARoxetine [Paxil] 40 mg PO DAILY 02/24/15 [History] Benztropine [Cogentin] 0.5 mg PO BID 07/15/17 [History] Carbidopa/Levodopa [Sinemet CR 50-200] 1 each PO 0800 07/15/17 [History] Gabapentin [Neurontin] 800 mg PO TID 07/15/17 [History] Warfarin [Coumadin] 5 mg PO MO 07/15/17 [History] Alfuzosin HCl [Alfuzosin HCl ER] 10 mg PO DAILY 02/21/20 [History] Acetaminophen 1,300 mg PO BEDTIME 04/04/20 [History] Alogliptin Benzoate [Alogliptin] 25 mg PO DAILY 04/04/20 [History] Budesonide/Formoterol Fumarate [Budesonide-Formoterol 160-4.5] 2 puff INH BID 04/04/20 [History] Carbidopa/Levodopa [Carbidopa-Levodopa 25-250] 1 tab PO 0800,1100,1500 04/04/20 [History] Celecoxib 200 mg PO DAILY 04/04/20 [History] Cholecalciferol (Vitamin D3) [Vitamin D3] 50 mcg PO DAILY 04/04/20 [History] Empagliflozin [Jardiance] 12.5 mg PO DAILY 04/04/20 [History] Eszopiclone 3 mg PO BEDTIME PRN 04/04/20 [History] Finasteride 5 mg PO DAILY 04/04/20 [History] Gabapentin [Neurontin] 1,200 mg PO BEDTIME 04/04/20 [History] Insulin Aspart [NovoLOG] 5 units SUBCUT TIDMEALS 04/04/20 [History] Magnesium Hydroxide [Milk of Magnesia] 30 ml PO DAILY PRN 04/04/20 [History] Mirtazapine 30 mg PO BEDTIME 04/04/20 [History] Pantoprazole Sodium [Protonix] 40 mg PO BIDMEALS 04/04/20 [History] QUEtiapine Fumarate [Quetiapine Fumarate] 50 mg PO TID 04/04/20 [History] Warfarin [Coumadin] 7.5 mg PO SUTUWETHFRSA 04/04/20 [History] busPIRone HCl [Buspirone HCl] 15 mg PO BID 04/04/20 [History] metFORMIN HCl [Metformin HCl ER] 500 mg PO BIDMEALS 04/04/20 [History] polyethylene glycoL 3350 [Polyethylene Glycol 3350] 17 gm PO BID 04/04/20 [History] traZODone HCl [Trazodone HCl] 75 mg PO BEDTIME 04/04/20 [History] Amoxicillin/Clavulanate K [Augmentin 875-125 MG] 1 tab PO Q12HR #6 tablet 04/07/20 [Rx] Azithromycin [Zithromax] 250 mg PO DAILY #2 tablet 04/07/20 [Rx] Forms: ED Department Discharge Referrals: Payton Gong DO [Physician] - (The clinic will call you in a couple days with a date and time for your follow up appt. You will need to wear a mask.) Jm Mccormack MD [Primary Care Provider] - - Discharge Summary/Plan Comment DC Time >30 min.: No - General Info Date of Service: 04/07/20 Subjective Update: 54 yo male admitted for community acquired pneumonia. States he is tired today from getting awakened for vital sign checks overnight. Is otherwise feeling well. No fever or chills overnight. Cough continues but is improving. Shortness of breath is resolved. Has not had a BM since admission. States he will often go for up to 1 week between bowel movements. No abdominal pain, nausea, or vomiting. - Review of Systems General: Reports: No Symptoms HEENT: Reports: No Symptoms Pulmonary: Reports: No Symptoms Cardiovascular: Reports: No Symptoms Gastrointestinal: Reports: Constipation. Denies: Abdominal Pain, Nausea, Vomi ting Genitourinary: Reports: No Symptoms Musculoskeletal: Reports: No Symptoms Skin: Reports: No Symptoms Neurological: Reports: No Symptoms Psychiatric: Reports: No Symptoms - Patient Data Vitals - Most Recent: Last Vital Signs Temp 36.2 C 04/07/20 06:00 Pulse 59 L 04/07/20 06:00 Resp 16 04/07/20 06:00 BP 120/73 04/07/20 08:30 Pulse Ox 95 04/07/20 06:00 Weight - Most Recent: 116.12 kg I&O - Last 24 hours: Intake & Output 04/06/20 04/07/20 04/07/20 22:59 06:59 14:59 Intake Total 908 120 Output Total 400 4 Balance 508 -4 120 Lab Results - Last 24 hrs: Laboratory Results - last 24 hr 04/06/20 04/06/20 04/07/20 Range/Units 11:08 17:06 06:13 WBC 5.3 (4.0-10.0) x10^3/uL RBC 4.28 L (4.5-6.0) x10^6/uL Hgb 13.1 L (14.0-18.0) g/dL Hct 39.7 L (40.0-52.0) % MCV 92.8 (78.0-93.0) fL MCH 30.6 (26.0-32.0) pg MCHC 33.0 (32.0-36.0) g/dL RDW Coeff of Sharri 13.5 (10.0-15.0) % Plt Count 204 (130-400) x10^3/uL PT (9.5-12.3) SEC INR (2.0-3.5) Sodium (136-145) mmol/L Potassium (3.5-5.1) mmol/L Chloride (98-107) mmol/L Carbon Dioxide (21-32) mmol/L Anion Gap (10-20) mmol/L BUN (7-18) mg/dL Creatinine (0.70-1.30) mg/dL Est Cr Clr Drug Dosing mL/min Estimated GFR (MDRD) Glucose (74-106) mg/dL POC Glucose 112 H 150 H (74-106) mg/dL Calcium (8.5-10.1) mg/dL 04/07/20 04/07/20 04/07/20 Range/Units 06:13 06:13 06:22 WBC (4.0-10.0) x10^3/uL RBC (4.5-6.0) x10^6/uL Hgb (14.0-18.0) g/dL Hct (40.0-52.0) % MCV (78.0-93.0) fL MCH (26.0-32.0) pg MCHC (32.0-36.0) g/dL RDW Coeff of Sharri (10.0-15.0) % Plt Count (130-400) x10^3/uL PT 14.9 H (9.5-12.3) SEC INR 1.4 L (2.0-3.5) Sodium 143 (136-145) mmol/L Potassium 4.2 (3.5-5.1) mmol/L Chloride 106 (98-107) mmol/L Carbon Dioxide 28 (21-32) mmol/L Anion Gap 13.2 (10-20) mmol/L BUN 18 (7-18) mg/dL Creatinine 1.5 H (0.70-1.30) mg/dL Est Cr Clr Drug Dosing 67.29 mL/min Estimated GFR (MDRD) 49 Glucose 95 (74-106) mg/dL POC Glucose 102 (74-106) mg/dL Calcium 8.4 L (8.5-10.1) mg/dL AMANDA Results - Last 24 hrs: Microbiology 04/04/20 08:41 Aerobic Blood Culture - Preliminary Blood - Venous - Lab Draw NO GROWTH AFTER 3 DAYS Anaerobic Blood Culture - Preliminary NO GROWTH AFTER 3 DAYS 04/04/20 08:36 Aerobic Blood Culture - Preliminary Blood - Venous NO GROWTH AFTER 3 DAYS Anaerobic Blood Culture - Preliminary NO GROWTH AFTER 3 DAYS Med Orders - Current: Current Medications Acetaminophen (Tylenol) 650 mg PO Q4H PRN PRN Reason: Pain (Mild 1-3)/fever Acetaminophen (Tylenol) 1,300 mg PO BEDTIME [facility] Last Admin: 04/06/20 21:17 Dose: 1,300 mg Documented by: Albuterol (Proventil Neb Soln) 2.5 mg INH Q6H PRN PRN Reason: Shortness of Breath Amoxicillin/Clavulanate Potassium (Augmentin 875 Mg/125 Mg) 1 tab PO Q12HR [facility] Stop: 04/09/20 23:59 Last Admin: 04/07/20 08:30 Dose: 1 tab Documented by: Azithromycin (Zithromax) 500 mg PO DAILY [facility] Stop: 04/09/20 08:00 Last Admin: 04/07/20 08:29 Dose: 500 mg Documented by: Buspirone HCl (Buspar) 15 mg PO BID [facility] Last Admin: 04/07/20 08:30 Dose: 15 mg Documented by: Carbidopa/Levodopa (Sinemet 25-250 Mg) 1 tab PO 0800,1100,1500 [facility] Last Admin: 04/07/20 08:30 Dose: 1 tab Documented by: Carbidopa/Levodopa (Sinemet Cr 50-200 Mg) 1 tab PO 0800 [facility] Last Admin: 04/07/20 08:29 Dose: 1 tab Documented by: Finasteride (Proscar) 5 mg PO DAILY [facility] Last Admin: 04/07/20 08:32 Dose: 5 mg Documented by: Insulin Glargine (Lantus) 30 unit SUBCUT BEDTIME [facility] Last Admin: 04/06/20 21:14 Dose: 30 units Documented by: Insulin Human Lispro (Humalog) 5 unit SUBCUT TIDMEALS [facility] Last Admin: 04/07/20 08:24 Dose: 5 units Documented by: Lisinopril (Prinivil) 5 mg PO DAILY [facility] Last Admin: 04/07/20 08:30 Dose: 5 mg Documented by: Magnesium Hydroxide (Milk Of Magnesia) 30 ml PO DAILY PRN PRN Reason: Constipation Last Admin: 04/06/20 09:06 Dose: 30 ml Documented by: Metformin HCl (Glucophage) 500 mg PO BIDMEALS [facility] Last Admin: 04/07/20 08:28 Dose: 500 mg Documented by: Mirtazapine (Remeron) 30 mg PO 2300 [facility] Last Admin: 04/06/20 22:55 Dose: 30 mg Documented by: (Alfuzosin Hcl [ Alfuzosin Hcl Er] 10 Mg)Own Med 10 mg PO DAILY [facility] Last Admin: 04/07/20 08:27 Dose: 10 mg Documented by: Ondansetron HCl (Zofran Odt) 4 mg PO Q4H PRN PRN Reason: nausea, able to take PO Last Admin: 04/06/20 11:16 Dose: 4 mg Documented by: Pantoprazole Sodium (Protonix) 40 mg PO BIDMEALS [facility] Last Admin: 04/07/20 08:29 Dose: 40 mg Documented by: Paroxetine HCl (Paxil) 40 mg PO DAILY [facility] Last Admin: 04/07/20 08:30 Dose: 40 mg Documented by: Patient's Own Medication Alogliptin 25 Mg 1 each PO DAILY [facility] Last Admin: 04/07/20 08:27 Dose: 1 each Documented by: Patient's Own Medication Benztropine 0.5 Mg 1 each PO BID [facility] Last Admin: 04/07/20 08:27 Dose: 1 each Documented by: Patient's Own Medication Gabapentin 600 Mg 2 each PO BEDTIME [facility] Last Admin: 04/06/20 21:15 Dose: 2 each Documented by: Patient's Own Medication Gabapentin 800 Mg 1 each PO 0800,1200,1600 [facility] Last Admin: 04/07/20 08:26 Dose: 1 each Documented by: Polyethylene Glycol (Miralax) 17 gm PO BID [facility] Last Admin: 04/07/20 08:25 Dose: 17 gm Documented by: Quetiapine Fumarate (Seroquel) 50 mg PO 0800,1200,2300 [facility] Last Admin: 04/07/20 08:28 Dose: 50 mg Documented by: Sodium Chloride (Saline Flush) 10 ml FLUSH ASDIRECTED PRN PRN Reason: Keep Vein Open Last Admin: 04/07/20 08:27 Dose: 10 ml Documented by: Sodium Chloride (Saline Flush) 10 ml FLUSH ASDIRECTED PRN PRN Reason: Keep Vein Open Trazodone HCl (Trazodone) 75 mg PO 2300 [facility] Last Admin: 04/06/20 22:56 Dose: 75 mg Documented by: Warfarin Sodium (Coumadin) 5 mg PO Mo@1999 [facility] Warfarin Sodium (Coumadin) 7.5 mg PO SuTuWeThFrSa@1999 [facility] Last Admin: 04/06/20 21:15 Dose: 7.5 mg Documented by: Zolpidem Tartrate (Ambien) 5 mg PO BEDTIME PRN PRN Reason: Insomnia Discontinued Medications Acetaminophen (Tylenol) 650 mg PO NOW ONE Stop: 04/04/20 10:15 Last Admin: 04/04/20 13:52 Dose: 650 mg Documented by: Albuterol (Ventolin Hfa) 0 gm INH Q6HR PRN PRN Reason: Shortness of Breath Ceftriaxone Sodium (Rocephin) 1 gm IVPUSH ONETIME ONE Stop: 04/04/20 08:15 Last Admin: 04/04/20 08:37 Dose: 1 gm Documented by: Cefuroxime Axetil (Ceftin) 500 mg PO BID [facility] Stop: 04/09/20 08:00 Gabapentin (Neurontin) Confirm Administered Dose 1,200 mg .ROUTE .STK-MED ONE Stop: 04/06/20 19:53 Last Admin: 04/06/20 21:21 Dose: 1,200 mg Documented by: Sodium Chloride (Normal Saline) 1,000 mls @ 1,000 mls/hr IV ONETIME ONE Stop: 04/04/20 09:14 Last Admin: 04/04/20 08:36 Dose: 1,000 mls/hr Documented by: Azithromycin 500 mg/ Sodium (Chloride) 250 mls @ 250 mls/hr IV STAT STA Stop: 04/04/20 12:34 Last Admin: 04/04/20 13:52 Dose: 250 mls/hr Documented by: Sodium Chloride (Normal Saline) 1,000 mls @ 100 mls/hr IV ASDIRECTED [facility] Last Admin: 04/05/20 23:02 Dose: 100 mls/hr Documented by: Insulin Glargine (Lantus) 36 unit SUBCUT BEDTIME [facility] Iopamidol (Isovue-300 (61%)) 100 ml IVPUSH ONETIME ONE Stop: 04/05/20 10:26 Last Admin: 04/05/20 10:42 Dose: 100 ml Documented by: Metformin HCl (Glucophage) 500 mg PO BIDMEALS [facility] Mirtazapine (Remeron) 30 mg PO BEDTIME [facility] Last Admin: 04/04/20 23:07 Dose: 30 mg Documented by: Non-Formulary Medication (Budesonide/Formoterol) 2 puff INH BID [facility] Non-Formulary Medication (Budesonide/Formoterol Fumarate) 2 puff INH BID [facility] Patient's Own Medication Gabapentin 800 Mg 1 each PO TID [facility] Last Admin: 04/04/20 21:17 Dose: Not Given Documented by: Quetiapine Fumarate (Seroquel) 100 mg PO TID [facility] Quetiapine Fumarate (Seroquel) 50 mg PO TID [facility] Last Admin: 04/04/20 23:18 Dose: 50 mg Documented by: Trazodone HCl (Trazodone) 25 mg PO BEDTIME [facility] Trazodone HCl (Trazodone) 75 mg PO BEDTIME [facility] Last Admin: 04/04/20 23:08 Dose: 75 mg Documented by: - Exam General: Reports: Alert, Cooperative, No Acute Distress HEENT: Reports: Mucous Membr. Moist/[place] Neck: Reports: Supple, Trachea Midline, No Thyromegaly. Denies: Lymphadenopathy Lungs: Reports: Clear to Auscultation, Normal Respiratory Effort Cardiovascular: Reports: Regular Rate, Regular Rhythm, No Murmurs GI/Abdominal Exam: Normal Bowel Sounds, Soft, Non-Tender, No Organomegaly, No Distention, No Mass Extremities: Non-Tender, No Pedal Edema, Normal Capillary Refill Skin: Reports: Warm, Dry, Intact
[2020-04-07 10:41] VITALS: BP 150/87; PULSE 95
[2020-04-07] MEDS ORDERED: Warfarin 5 MG Tab PO SCH (20:00)
== END 2020-04-07 13:10 | disposition home or self-care (01) | DRG 871 ==
LOC: VM.ED 07:35 → VM.MS 10:39
PROVIDERS: ADMIT Family Medicine; ATTEND Internal Medicine
DX: A41.9 Sepsis, unspecified organism (principal); J18.9 Pneumonia, unspecified organism; R53.1 Weakness; R50.9 Fever, unspecified; R53.83 Other fatigue; N17.9 Acute kidney failure, unspecified; Z79.4 Long term (current) use of insulin; Z79.899 Other long term (current) drug therapy; Z79.01 Long term (current) use of anticoagulants; E78.00 Pure hypercholesterolemia, unspecified; I10 Essential (primary) hypertension; I25.2 Old myocardial infarction; Z86.711 Personal history of pulmonary embolism; J45.909 Unspecified asthma, uncomplicated; K21.9 Gastro-esophageal reflux disease without esophagitis; Z86.010 Personal history of colon polyps; E11.9 Type 2 diabetes mellitus without complications; G89.29 Other chronic pain; Z88.6 Allergy status to analgesic agent; Z88.8 Allergy status to other drugs, medicaments and biological substances; Z91.018 Allergy to other foods; M54.9 Dorsalgia, unspecified; F32.9 Major depressive disorder, single episode, unspecified; Z79.51 Long term (current) use of inhaled steroids; F43.10 Post-traumatic stress disorder, unspecified; G20 Parkinson's disease; E78.5 Hyperlipidemia, unspecified; N40.0 Benign prostatic hyperplasia without lower urinary tract symptoms; Z20.828 Contact with and (suspected) exposure to other viral communicable diseases; E11.42 Type 2 diabetes mellitus with diabetic polyneuropathy; G47.00 Insomnia, unspecified; K59.00 Constipation, unspecified; Z86.718 Personal history of other venous thrombosis and embolism
CPT/HCPCS: 36415; 71045; 80053; 81003; 83605; 83880; 84145; 84484; 85025; 87040 ×2; 87635; 93005; J0696; J7030; 74177; 80048; 82962; 83690; 85027; 85610; 86140; 96361; 96374; 99284-GF; 99285-25; A9270-GY; J0456; J1815-GY; J7050; Q9967; U0002

== ENCOUNTER 2020-06-09 13:04 | Emergency (ER) | payer OTHER, MEDICARE ==
[2020-06-09] MEDS ORDERED: Sodium Chloride 0.9% 10 ML Syringe FLUSH PRN (13:36)
[2020-06-09] MEDS ORDERED: Flumazenil 0.1 MG/ML 5 ML MDV IVPUSH PRN (13:37)
--- NOTE | 2020-06-09 14:16 | EDM.PDOC ---
ED HPI GENERAL MEDICAL PROBLEM - General Chief Complaint: Lower Extremity Injury/Pain Time Seen by Provider: 06/09/20 13:18 Source of Information: Reports: Patient, Family History Limitations: Reports: No Limitations - History of Present Illness INITIAL COMMENTS - FREE TEXT/NARRATIVE: Pt. presents to ER with complaints of cramping and pain to his legs and feet, as well as involuntary movement of the legs. Pt. states that he has been experiencing these symptoms for months, but has not seen his neurologist at the [place]. Pt. has a history of Parkinsonism, thought to be secondary to Lewy Body Dementia, chronic back pain with what is thought to be radiculopathy (he has not had a lumbar MRI) vs. peripheral neuropathy, and has a complex psych history including PTSD and depression. He states that he is being weaned off neurontin and is being transitioned to Lyrica due to his chronic pain. He states that he was recently started on tramadol for his extremity pain, but states that it "doesn't work, so I stopped taking it" however he did take some yesterday. This was started on 06/03 Pt. is on Sinemet, paxil, Remeron, trazodone, buspar, seroquel, and benztropine but states that he hasn't had a recent change to his medications, other than being weaned off the neurontin. Pt. also has a history of DVT and pervious PE but is anticoagulated. He denies any duskiness or unilateral pain in his lower extremities. Onset: Today Onset Date: 06/09/20 Location: Reports: Lower Extremity, Left, Lower Extremity, Right Quality: Reports: Burning, Other (cramping) Lower Pain Score (Numeric/FACES): 10 - Related Data Allergies Allergy/AdvReac Type Severity Reaction Status Date / Time hydrocodone Allergy Dizziness Verified 06/09/20 13:08 sertraline HCl [From Zoloft] Allergy Hives Verified 06/09/20 13:08 cranberry Allergy Respiratory Uncoded 12/30/15 19:08 Distress Home Meds: Home Meds Albuterol [Ventolin HFA] 2 puff INH Q6HR PRN 07/15/14 [History] Insulin Glarg,Human.Rec.Analog [Lantus] 36 unit SUBCUT BEDTIME 07/15/14 [History] Lisinopril 5 mg PO DAILY 02/24/15 [History] PARoxetine [Paxil] 40 mg PO DAILY 02/24/15 [History] Benztropine [Cogentin] 0.5 mg PO BID 07/15/17 [History] Carbidopa/Levodopa [Sinemet CR 50-200] 1 each PO 0800 07/15/17 [History] Gabapentin [Neurontin] 800 mg PO TID 07/15/17 [History] Warfarin [Coumadin] 5 mg PO MO 07/15/17 [History] Alfuzosin HCl [Alfuzosin HCl ER] 10 mg PO DAILY 02/21/20 [History] Alogliptin Benzoate [Alogliptin] 25 mg PO DAILY 04/04/20 [History] Budesonide/Formoterol Fumarate [Budesonide-Formoterol 160-4.5] 2 puff INH BID 04/04/20 [History] Carbidopa/Levodopa [Carbidopa-Levodopa 25-250] 1 tab PO 0800,1100,1500 04/04/20 [History] Empagliflozin [Jardiance] 12.5 mg PO DAILY 04/04/20 [History] Eszopiclone 3 mg PO BEDTIME PRN 04/04/20 [History] Finasteride 5 mg PO DAILY 04/04/20 [History] Gabapentin [Neurontin] 1,200 mg PO BEDTIME 04/04/20 [History] Insulin Aspart [NovoLOG] 5 units SUBCUT TIDMEALS 04/04/20 [History] Mirtazapine 30 mg PO BEDTIME 04/04/20 [History] Pantoprazole Sodium [Protonix] 40 mg PO BIDMEALS 04/04/20 [History] QUEtiapine Fumarate [Quetiapine Fumarate] 50 mg PO TID 04/04/20 [History] Warfarin [Coumadin] 7.5 mg PO SUTUWETHFRSA 04/04/20 [History] busPIRone HCl [Buspirone HCl] 15 mg PO BID 04/04/20 [History] metFORMIN HCl [Metformin HCl ER] 500 mg PO BIDMEALS 04/04/20 [History] traZODone HCl [Trazodone HCl] 75 mg PO BEDTIME 04/04/20 [History] Cyanocobalamin (Vitamin B12) [Vitamin B12] 1,000 mcg PO DAILY 06/09/20 [History] Docusate Sodium [Colace] 100 mg PO TID PRN 06/09/20 [History] Famotidine [Pepcid] 20 mg PO DAILY 06/09/20 [History] Fluticasone Propionate [Flonase] 50 mcg ESAU BID 06/09/20 [History] Ondansetron [Zofran] 4 mg PO TID 06/09/20 [History] atorvaSTATin [Lipitor] 10 mg PO BEDTIME 06/09/20 [History] atorvaSTATin [Lipitor] 10 mg PO BEDTIME 06/09/20 [History] tiZANidine HCl [Zanaflex] 2 mg PO TID 06/09/20 [History] Past Medical History HEENT History: Reports: Allergic Rhinitis Cardiovascular History: Reports: High Cholesterol, Hypertension, NM, Other (See Below) Other Cardiovascular History: NSTEMI Respiratory History: Reports: Asthma, PE Gastrointestinal History: Reports: Colon Polyp, GERD Other Gastrointestinal History: ch's esophagus Musculoskeletal History: Reports: Back Pain, Chronic Neurological History: Reports: Parkinson's Psychiatric History: Reports: Depression, PTSD Endocrine/Metabolic History: Reports: Diabetes, Type II Social & Family History - Tobacco Use Smoking Status *Q: Never Smoker - Caffeine Use Caffeine Use: Reports: Coffee, Soda - Recreational Drug Use Recreational Drug Use: No Review of Systems - Review of Systems Review Of Systems: See Below Constitutional: Reports: Diaphoresis Eyes: Reports: No Symptoms Ears: Reports: No Symptoms Nose: Reports: No Symptoms Mouth/Throat: Reports: No Symptoms Respiratory: Reports: No Symptoms Cardiovascular: Reports: No Symptoms GI/Abdominal: Reports: No Symptoms Genitourinary: Reports: No Symptoms Musculoskeletal: Reports: Leg Pain Skin: Reports: No Symptoms Neurological: Reports: Tremors, Other (restless legs) Psychiatric: Reports: Depression, Other (PTSD) ED EXAM, GENERAL - Physical Exam Exam: See Below Exam Limited By: No Limitations General Appearance: Alert, WD/WN, No Apparent Distress Head: Atraumatic, Normocephalic Neck: Normal Inspection, Supple, Non-Tender, Full Range of Motion Respiratory/Chest: No Respiratory Distress, Lungs Clear, Normal Breath Sounds, No Accessory Muscle Use, Chest Non-Tender Cardiovascular: Normal Peripheral Pulses, Regular Rate, Rhythm, No Edema, No Gallop, No JVD, No Murmur, No Rub Peripheral Pulses: 1+: Radial (L) GI/Abdominal: Normal Bowel Sounds, Soft, Non-Tender, No Distention, No Mass (Male) Exam: Deferred Rectal (Males) Exam: Deferred Back Exam: Normal Inspection, Full Range of Motion Extremities: Normal Inspection, Normal Range of Motion, Non-Tender, No Pedal Edema, Normal Capillary Refill Neurological: Alert, Oriented, CN II-XII Intact, Normal Cognition, Normal Reflexes (+1) Psychiatric: Anxious Skin Exam: Warm, Dry, Intact, Normal Color Lymphatic: No Adenopathy Course - Vital Signs Last Recorded V/S: Last Vital Signs Temp 35.9 C L 06/09/20 13:08 Pulse 69 06/09/20 15:19 Resp 14 06/09/20 15:19 BP 111/70 06/09/20 15:19 Pulse Ox 93 L 06/09/20 15:19 - Orders/Labs/Meds Orders: Active Orders 24 hr Category Date Time Status EKG Documentation Completion [RC] STAT Care 06/09/20 13:36 Active Sodium Chloride 0.9% [Saline Flush] Med 06/09/20 13:36 Active 10 ml FLUSH ASDIRECTED PRN flumazeniL [Romazicon] Med 06/09/20 13:37 Active 0.2 mg IVPUSH ASDIRECTED PRN Peripheral IV Insertion Adult [OM.PC] Routine Oth 06/09/20 13:37 Ordered Medication Orders Flumazenil (Romazicon) 0.2 mg IVPUSH ASDIRECTED PRN PRN Reason: Respiratory Depression Sodium Chloride (Saline Flush) 10 ml FLUSH ASDIRECTED PRN PRN Reason: Keep Vein Open Labs: Laboratory Tests 06/09/20 06/09/20 06/09/20 Range/Units 13:55 13:55 13:55 WBC 6.6 (4.0-10.0) x10^3/uL RBC 4.95 (4.5-6.0) x10^6/uL Hgb 15.2 D (14.0-18.0) g/dL Hct 44.3 (40.0-52.0) % MCV 89.5 D (78.0-93.0) fL MCH 30.7 (26.0-32.0) pg MCHC 34.3 (32.0-36.0) g/dL RDW Coeff of Sharri 13.4 (10.0-15.0) % Plt Count 215 (130-400) x10^3/uL Add Manual Diff Yes Neutrophils % (Manual) 55 (50-80) % Lymphocytes % (Manual) 36 (25-50) % Monocytes % (Manual) 4 (2-11) % Eosinophils % (Manual) 3 (0-4) % Basophils % (Manual) 2 H (0-1) % Platelet Estimate Adequate PT 20.0 H D (9.5-12.3) SEC INR 1.9 L (2.0-3.5) Sodium 141 (136-145) mmol/L Potassium 4.7 (3.5-5.1) mmol/L Chloride 105 (98-107) mmol/L Carbon Dioxide 25 (21-32) mmol/L Anion Gap 15.7 (10-20) mmol/L BUN 23 H (7-18) mg/dL Creatinine 1.6 H (0.70-1.30) mg/dL Est Cr Clr Drug Dosing 62.35 mL/min Estimated GFR (MDRD) 45 Glucose 86 (74-106) mg/dL Calcium 8.5 (8.5-10.1) mg/dL Corrected Calcium 8.42 L (8.5-10.1) mg/dL Magnesium 1.9 (1.8-2.4) mg/dL Ferritin (26-388) ng/mL Total Bilirubin 0.9 (0.2-1.0) mg/dL AST 28 (15-37) U/L ALT 14 L (16-63) U/L Alkaline Phosphatase 66 (46-116) U/L Creatine Kinase 225 (39-308) U/L Troponin I < 0.017 (<=0.056) ng/mL C-Reactive Protein 0.9 (<=0.9) mg/dL Total Protein 7.4 (6.4-8.2) g/dL Albumin 4.1 (3.4-5.0) g/dL Globulin 3.3 Albumin/Globulin Ratio 1.24 TSH, Ultra Sensitive 1.758 (0.358-3.74) uIU/mL 06/09/20 Range/Units 13:55 WBC (4.0-10.0) x10^3/uL RBC (4.5-6.0) x10^6/uL Hgb (14.0-18.0) g/dL Hct (40.0-52.0) % MCV (78.0-93.0) fL MCH (26.0-32.0) pg MCHC (32.0-36.0) g/dL RDW Coeff of Sharri (10.0-15.0) % Plt Count (130-400) x10^3/uL Add Manual Diff Neutrophils % (Manual) (50-80) % Lymphocytes % (Manual) (25-50) % Monocytes % (Manual) (2-11) % Eosinophils % (Manual) (0-4) % Basophils % (Manual) (0-1) % Platelet Estimate PT (9.5-12.3) SEC INR (2.0-3.5) Sodium (136-145) mmol/L Potassium (3.5-5.1) mmol/L Chloride (98-107) mmol/L Carbon Dioxide (21-32) mmol/L Anion Gap (10-20) mmol/L BUN (7-18) mg/dL Creatinine (0.70-1.30) mg/dL Est Cr Clr Drug Dosing mL/min Estimated GFR (MDRD) Glucose (74-106) mg/dL Calcium (8.5-10.1) mg/dL Corrected Calcium (8.5-10.1) mg/dL Magnesium (1.8-2.4) mg/dL Ferritin 63 (26-388) ng/mL Total Bilirubin (0.2-1.0) mg/dL AST (15-37) U/L ALT (16-63) U/L Alkaline Phosphatase (46-116) U/L Creatine Kinase (39-308) U/L Troponin I (<=0.056) ng/mL C-Reactive Protein (<=0.9) mg/dL Total Protein (6.4-8.2) g/dL Albumin (3.4-5.0) g/dL Globulin Albumin/Globulin Ratio TSH, Ultra Sensitive (0.358-3.74) uIU/mL Meds: Medications Generic Name Dose Route Start Last Admin Trade Name Freq PRN Reason Stop Dose Admin Flumazenil 0.2 mg 06/09/20 13:37 Romazicon IVPUSH ASDIRECTED PRN Respiratory Depression Sodium Chloride 10 ml 06/09/20 13:36 Saline Flush FLUSH ASDIRECTED PRN Keep Vein Open Discontinued Medications Generic Name Dose Route Start Last Admin Trade Name Casey PRN Reason Stop Dose Admin Diazepam 5 mg 06/09/20 13:37 06/09/20 13:54 Valium IVPUSH 06/09/20 13:38 5 mg STAT ONE Administration Diazepam 2 mg 06/09/20 15:22 Valium PO 06/09/20 15:23 ONETIME ONE Departure - Departure Time of Disposition: 15:35 Disposition: Home, Self-Care 01 Clinical Impression: Restless legs syndrome (RLS) - Discharge Information Instructions: Muscle Cramps and Spasms, [id number], Diazepam tablets Referrals: PCP,None [Primary Care Provider] - Forms: ED Department Discharge Additional Instructions: Stop tramadol. I think that this is possibly what caused your symptoms to worsen. Stop the tizanidine. Start valium 2 mg once every 6 hours as needed for spasm. Follow-up with neurology and psychiatry [facility]. You are on several medications that cause restless leg symptoms and I think that some of these combinations of medications could be causing problems for you. Sepsis Event Note (ED) - Evaluation Sepsis Screening Result: No Definite Risk - Focused Exam Vital Signs: Vital Signs Temp Pulse Resp BP Pulse Ox 06/09/20 15:19 69 14 111/70 93 L 06/09/20 14:25 69 14 120/77 94 L 06/09/20 13:08 35.9 C L 93 16 96 - Problem List Review Problem List Initiated/Reviewed/Updated: Yes - My Orders Last 24 Hours: My Active Orders 06/09/20 13:36 EKG Documentation Completion [RC] STAT Sodium Chloride 0.9% [Saline Flush] 10 ml FLUSH ASDIRECTED PRN 06/09/20 13:37 flumazeniL [Romazicon] 0.2 mg IVPUSH ASDIRECTED PRN Peripheral IV Insertion Adult [OM.PC] Routine - Assessment/Plan Last 24 Hours: My Active Orders 06/09/20 13:36 EKG Documentation Completion [RC] STAT Sodium Chloride 0.9% [Saline Flush] 10 ml FLUSH ASDIRECTED PRN 06/09/20 13:37 flumazeniL [Romazicon] 0.2 mg IVPUSH ASDIRECTED PRN Peripheral IV Insertion Adult [OM.PC] Routine Plan: Pt. was given 5 mg valium IV in ER which helped significantly with his lower limb movement. Labs, including CBC, CMP, Trop I, EKG, ferritin, CPK, TSH and coags showed no significant change from baseline. CPK and temp are normal, and while serotonin syndrome is on the differential, it is less likely in light of this. Pt. was advised to stop the tramadol immediately, however. The symptoms got worse about a week ago, and that is when he started to tramadol for neuropathic pain. Hopefully the limb movement problems and spasticity will resolve once this is stopped. I did start him on a short course of low dose valium to take as needed for continued restless leg problems. He was also advised to stop the tizanidine since he is taking the valium. Pt. advised to follow-up with psychiatry [facility]. Some of his symptoms could easily be caused by the combination of medications that he is on
[2020-06-09 14:26] VITALS: PULSE 69
[2020-06-09 15:06] LABS: CHLORIDE,CL 105 mmol/L (98-107); SODIUM,NA 141 mmol/L (136-145)
[2020-06-09 15:09] LABS: ANION GAP 15.7 mmol/L (10-20)
[2020-06-09 15:19] VITALS: BP 111/70
[2020-06-09] MEDS ORDERED: Diazepam 2 MG Tab PO ONE (15:22)
== END 2020-06-09 15:45 | disposition home or self-care (01) ==
LOC: VM.ED 13:04
DX: G25.81 Restless legs syndrome (principal); I10 Essential (primary) hypertension; I25.2 Old myocardial infarction; J45.909 Unspecified asthma, uncomplicated; K21.9 Gastro-esophageal reflux disease without esophagitis; F32.9 Major depressive disorder, single episode, unspecified; E11.9 Type 2 diabetes mellitus without complications; Z88.5 Allergy status to narcotic agent; Z88.8 Allergy status to other drugs, medicaments and biological substances; Z91.018 Allergy to other foods; Z79.899 Other long term (current) drug therapy; Z79.4 Long term (current) use of insulin
CPT/HCPCS: 80053; 82550; 82728; 83735; 84443; 84484; 85025; 85610; 86140; 93005; 96374; 96375; 99283; A9270; J3360; 36415; 99284

== ENCOUNTER 2020-06-29 09:18 | Emergency (ER) | payer OTHER ==
[2020-06-29] MEDS ORDERED: Sodium Chloride 0.9% 10 ML Syringe FLUSH PRN (09:40)
[2020-06-29] MEDS ORDERED: Ondansetron 4 MG/2 ML SDV IVPUSH ONE (09:45)
[2020-06-29] MEDS ORDERED: Sodium Chloride 0.9% 1,000 ML IV ONE (09:45)
[2020-06-29] MEDS ORDERED: Flumazenil 0.1 MG/ML 5 ML MDV IVPUSH PRN ×2 (09:45→11:13)
--- NOTE | 2020-06-29 10:34 | EDM.PDOC ---
ED HPI GENERAL MEDICAL PROBLEM - General Chief Complaint: Gastrointestinal Problem Time Seen by Provider: 06/29/20 09:25 Source of Information: Reports: Patient History Limitations: Reports: No Limitations - History of Present Illness INITIAL COMMENTS - FREE TEXT/NARRATIVE: presents to ER with complaints of intermittent nausea and vomiting for the past 1-2 weeks, worsening symptoms of RLS/Parkinsonism, spasticity, urinary retention, fever at home, chills, and weight loss. He states that he has lost 20 # in the past 2 weeks. He was seen in ER on 06/09/2020 with cramping and symptoms or RLS. He is a [place] patient, and has a longstanding psych history with history of depression and PTSD. He stated at that time, he was being weaned off of Lyrica and transitioned to gabapentin. His workup in ER on 06/09/2020 included CBC, CMP, EKG, trop I, CPK, TSH all of which were within normal limits. At that time he was taking tramadol and tizanidine, which he was advised to stop due to concerned of serotonin syndrome. He was started on a short course of valium which he states helped with the symptoms. Pt. has since been seen at the [place] ER on , and was started on mirapex and balcofen for RLS. He states that this has not been of any benefit. There information was obtained from his [place] clinic chart. His visit note did not include an HPI, ROS, or PE, so it is unclear if I got all or his note from that visit, but the medical records person states that we have. On arrival to ER, pt. was noted to be extremely tremulous, to the point that he can barely walk. He was diaphoretic, not surprising, considering how much he is moving. Pt. states that he is not scheduled to see neurology until Jul.08. Pt. denies any cough, chest congestion, sore throat, rhinorrhea, rash, dysuria, chest pain, or shortness of breath. Location: Reports: Generalized Associated Symptoms: Reports: Diaphoresis, Fever/Chills, Malaise, Weakness. Denies: Chest Pain, Cough, cough w sputum - Related Data Allergies Allergy/AdvReac Type Severity Reaction Status Date / Time hydrocodone Allergy Dizziness Verified 06/29/20 09:37 sertraline HCl [From Zoloft] Allergy Hives Verified 06/29/20 09:37 cranberry Allergy Respiratory Uncoded 06/29/20 09:37 Distress Home Meds: Home Meds Albuterol [Ventolin HFA] 2 puff INH Q6HR PRN 07/15/14 [History] Insulin Glarg,Human.Rec.Analog [Lantus] 36 unit SUBCUT BEDTIME 07/15/14 [History] Lisinopril 5 mg PO DAILY 02/24/15 [History] PARoxetine [Paxil] 40 mg PO DAILY 02/24/15 [History] Benztropine [Cogentin] 0.5 mg PO BID 07/15/17 [History] Carbidopa/Levodopa [Sinemet CR 50-200] 1 each PO 0800 07/15/17 [History] Gabapentin [Neurontin] 800 mg PO TID 07/15/17 [History] Warfarin [Coumadin] 5 mg PO MO 07/15/17 [History] Alfuzosin HCl [Alfuzosin HCl ER] 10 mg PO DAILY 02/21/20 [History] Alogliptin Benzoate [Alogliptin] 25 mg PO DAILY 04/04/20 [History] Budesonide/Formoterol Fumarate [Budesonide-Formoterol 160-4.5] 2 puff INH BID 04/04/20 [History] Carbidopa/Levodopa [Carbidopa-Levodopa 25-250] 1 tab PO 0800,1100,1500 04/04/20 [History] Empagliflozin [Jardiance] 12.5 mg PO DAILY 04/04/20 [History] Eszopiclone 3 mg PO BEDTIME PRN 04/04/20 [History] Finasteride 5 mg PO DAILY 04/04/20 [History] Gabapentin [Neurontin] 1,200 mg PO BEDTIME 04/04/20 [History] Insulin Aspart [NovoLOG] 5 units SUBCUT TIDMEALS 04/04/20 [History] Mirtazapine 30 mg PO BEDTIME 04/04/20 [History] Pantoprazole Sodium [Protonix] 40 mg PO BIDMEALS 04/04/20 [History] QUEtiapine Fumarate [Quetiapine Fumarate] 50 mg PO TID 04/04/20 [History] Warfarin [Coumadin] 7.5 mg PO SUTUWETHFRSA 04/04/20 [History] busPIRone HCl [Buspirone HCl] 15 mg PO BID 04/04/20 [History] metFORMIN HCl [Metformin HCl ER] 500 mg PO BIDMEALS 04/04/20 [History] traZODone HCl [Trazodone HCl] 75 mg PO BEDTIME 04/04/20 [History] Cyanocobalamin (Vitamin B12) [Vitamin B12] 1,000 mcg PO DAILY 06/09/20 [History] Docusate Sodium [Colace] 100 mg PO TID PRN 06/09/20 [History] Famotidine [Pepcid] 20 mg PO DAILY 06/09/20 [History] Fluticasone Propionate [Flonase] 50 mcg ESAU BID 06/09/20 [History] Ondansetron [Zofran] 4 mg PO TID 06/09/20 [History] atorvaSTATin [Lipitor] 10 mg PO BEDTIME 06/09/20 [History] atorvaSTATin [Lipitor] 10 mg PO BEDTIME 06/09/20 [History] tiZANidine HCl [Zanaflex] 2 mg PO TID 06/09/20 [History] Past Medical History HEENT History: Reports: Allergic Rhinitis Cardiovascular History: Reports: High Cholesterol, Hypertension, MA, Other (See Below) Other Cardiovascular History: NSTEMI Respiratory History: Reports: Asthma, PE Gastrointestinal History: Reports: Colon Polyp, GERD Other Gastrointestinal History: ch's esophagus Musculoskeletal History: Reports: Back Pain, Chronic Neurological History: Reports: Parkinson's Psychiatric History: Reports: Depression, PTSD Endocrine/Metabolic History: Reports: Diabetes, Type II Social & Family History - Tobacco Use Smoking Status *Q: Unknown Ever Smoked - Caffeine Use Caffeine Use: Reports: Coffee, Soda ED ROS GENERAL - Review of Systems Review Of Systems: See Below Constitutional: Reports: Fever, Chills, Malaise, Weakness, Fatigue, Diaphoresis, Weight Loss HEENT: Reports: No Symptoms Respiratory: Reports: No Symptoms Cardiovascular: Reports: No Symptoms Endocrine: Reports: No Symptoms GI/Abdominal: Reports: Abdominal Pain (diffuse abdominal discomfort), Diarrhea, Nausea, Vomiting : Reports: No Symptoms Musculoskeletal: Reports: No Symptoms Skin: Reports: No Symptoms Neurological: Reports: Tremors Psychiatric: Reports: Depression Hematologic/Lymphatic: Reports: No Symptoms Immunologic: Reports: No Symptoms ED EXAM, GENERAL - Physical Exam Exam: See Below Exam Limited By: No Limitations General Appearance: Alert, WD/WN, No Apparent Distress Eye Exam: Bilateral Eye: EOMI Nose: Normal Inspection, Normal Mucosa, No Blood Throat/Mouth: Normal Inspection, Normal Lips, Normal Teeth, Normal Gums, Normal Oropharynx, Normal Voice, No Airway Compromise Head: Atraumatic, Normocephalic Neck: Normal Inspection, Supple, Non-Tender, Full Range of Motion Respiratory/Chest: No Respiratory Distress, Lungs Clear, Normal Breath Sounds, No Accessory Muscle Use, Chest Non-Tender Cardiovascular: Normal Peripheral Pulses, Regular Rate, Rhythm, No Edema, No JVD, No Murmur Peripheral Pulses: 4+: Radial (L) GI/Abdominal: Soft, Non-Tender, No Distention, No Mass (Male) Exam: Deferred Rectal (Males) Exam: Deferred Back Exam: Normal Inspection, Full Range of Motion Extremities: Normal Inspection, Normal Range of Motion, Non-Tender, No Pedal Edema, Normal Capillary Refill Neurological: Alert, Oriented, Abnormal Gait, Other (severe tremors, mainly to lower extremities. Very difficult for the patient to ambulate.) Skin Exam: Warm, Intact, Normal Color, Diaphoretic Lymphatic: No Adenopathy Course - Vital Signs Last Recorded V/S: Last Vital Signs Temp 36.7 C 06/29/20 12:38 Pulse 108 H 06/29/20 12:38 Resp 18 06/29/20 12:38 BP 148/99 H 06/29/20 12:38 Pulse Ox 96 06/29/20 12:38 - Orders/Labs/Meds Orders: Active Orders 24 hr Category Date Time Status CULTURE BLOOD [BC] Stat Lab 06/29/20 10:15 Received CULTURE BLOOD [BC] Stat Lab 06/29/20 10:19 Received Sodium Chloride 0.9% [Normal Saline] 1,000 ml Med 06/29/20 12:00 Ordered IV ASDIRECTED Sodium Chloride 0.9% [Saline Flush] Med 06/29/20 09:40 Active 10 ml FLUSH ASDIRECTED PRN flumazeniL [Romazicon] Med 06/29/20 09:45 Active 0.2 mg IVPUSH ASDIRECTED PRN flumazeniL [Romazicon] Med 06/29/20 11:13 Ordered 0.2 mg IVPUSH ASDIRECTED PRN Blood Culture x2 Reflex Set [OM.PC] Stat Oth 06/29/20 09:41 Ordered Peripheral IV Insertion Adult [OM.PC] Routine Oth 06/29/20 09:40 Ordered Medication Orders Flumazenil (Romazicon) 0.2 mg IVPUSH ASDIRECTED PRN PRN Reason: Respiratory Depression Flumazenil (Romazicon) 0.2 mg IVPUSH ASDIRECTED PRN PRN Reason: Respiratory Depression Sodium Chloride (Normal Saline) 1,000 mls @ 250 mls/hr IV ASDIRECTED JAQUELIN Last Admin: 06/29/20 12:09 Dose: 250 mls/hr Documented by: MILDRED Sodium Chloride (Saline Flush) 10 ml FLUSH ASDIRECTED PRN PRN Reason: Keep Vein Open Labs: Laboratory Tests 06/29/20 06/29/20 06/29/20 Range/Units 09:48 10:15 10:15 WBC 10.6 H (4.0-10.0) x10^3/uL RBC 4.75 (4.5-6.0) x10^6/uL Hgb 14.5 (14.0-18.0) g/dL Hct 43.0 (40.0-52.0) % MCV 90.5 (78.0-93.0) fL MCH 30.5 (26.0-32.0) pg MCHC 33.7 (32.0-36.0) g/dL RDW Coeff of Sharri 13.9 (10.0-15.0) % Plt Count 289 (130-400) x10^3/uL Neut % (Auto) 64.9 (50.0-80.0) % Lymph % (Auto) 25.5 (25.0-50.0) % Wright % (Auto) 8.4 (2.0-11.0) % Eos % (Auto) 1.0 (0.0-4.0) % Baso % (Auto) 0.2 (0.2-1.2) % PT 31.5 H D (9.5-12.3) SEC INR 3.1 (2.0-3.5) Sodium (136-145) mmol/L Potassium (3.5-5.1) mmol/L Chloride (98-107) mmol/L Carbon Dioxide (21-32) mmol/L Anion Gap (10-20) mmol/L BUN (7-18) mg/dL Creatinine (0.70-1.30) mg/dL Est Cr Clr Drug Dosing Estimated GFR (MDRD) Glucose (74-106) mg/dL Lactic Acid (0.4-2.0) mmol/L Calcium (8.5-10.1) mg/dL Corrected Calcium (8.5-10.1) mg/dL Magnesium (1.8-2.4) mg/dL Total Bilirubin (0.2-1.0) mg/dL AST (15-37) U/L ALT (16-63) U/L Alkaline Phosphatase (46-116) U/L C-Reactive Protein (<=0.9) mg/dL Total Protein (6.4-8.2) g/dL Albumin (3.4-5.0) g/dL Globulin Albumin/Globulin Ratio Urine Color (YELLOW) Urine Appearance (CLEAR) Urine pH (5.0-8.0) Ur Specific [place] Urine Protein (NEGATIVE) mg/dL Urine Glucose (UA) (NEGATIVE) mg/dL Urine Ketones (NEGATIVE) mg/dL Urine Occult Blood (NEGATIVE) Urine Nitrite (NEGATIVE) Urine Bilirubin (NEGATIVE) Urine Urobilinogen (0.2) EU/dL Ur Leukocyte Esterase (NEGATIVE) U Hyaline Cast (Auto) Urine RBC (NOT SEEN) /HPF Urine WBC (NOT SEEN) /HPF Ur Squamous Epith Cells (NEGATIVE) /HPF Urine Bacteria (NEGATIVE) /HPF Urine Mucus (NEGATIVE) /LPF SARS CoV-2 RNA Rapid LUCIAN Negative (NEGATIVE) 06/29/20 06/29/20 06/29/20 Range/Units 10:15 10:15 11:41 WBC (4.0-10.0) x10^3/uL RBC (4.5-6.0) x10^6/uL Hgb (14.0-18.0) g/dL Hct (40.0-52.0) % MCV (78.0-93.0) fL MCH (26.0-32.0) pg MCHC (32.0-36.0) g/dL RDW Coeff of Sharri (10.0-15.0) % Plt Count (130-400) x10^3/uL Neut % (Auto) (50.0-80.0) % Lymph % (Auto) (25.0-50.0) % Wright % (Auto) (2.0-11.0) % Eos % (Auto) (0.0-4.0) % Baso % (Auto) (0.2-1.2) % PT (9.5-12.3) SEC INR (2.0-3.5) Sodium 143 (136-145) mmol/L Potassium 4.6 (3.5-5.1) mmol/L Chloride 106 (98-107) mmol/L Carbon Dioxide 19 L (21-32) mmol/L Anion Gap 22.6 H (10-20) mmol/L BUN 36 H (7-18) mg/dL Creatinine 2.0 H (0.70-1.30) mg/dL Est Cr Clr Drug Dosing TNP Estimated GFR (MDRD) 35 Glucose 112 H (74-106) mg/dL Lactic Acid 6.1 H* (0.4-2.0) mmol/L Calcium 9.0 (8.5-10.1) mg/dL Corrected Calcium 8.52 (8.5-10.1) mg/dL Magnesium 2.0 (1.8-2.4) mg/dL Total Bilirubin 1.5 H (0.2-1.0) mg/dL AST 26 (15-37) U/L ALT 15 L (16-63) U/L Alkaline Phosphatase 78 (46-116) U/L C-Reactive Protein 1.2 H (<=0.9) mg/dL Total Protein 8.1 (6.4-8.2) g/dL Albumin 4.6 (3.4-5.0) g/dL Globulin 3.5 Albumin/Globulin Ratio 1.31 Urine Color Yellow (YELLOW) Urine Appearance Slightly cloudy H (CLEAR) Urine pH 5.5 (5.0-8.0) Ur Specific [place] >=1.030 Urine Protein Negative (NEGATIVE) mg/dL Urine Glucose (UA) 500 H (NEGATIVE) mg/dL Urine Ketones 15 H (NEGATIVE) mg/dL Urine Occult Blood Trace-intact H (NEGATIVE) Urine Nitrite Negative (NEGATIVE) Urine Bilirubin Small H (NEGATIVE) Urine Urobilinogen 0.2 (0.2) EU/dL Ur Leukocyte Esterase Negative (NEGATIVE) U Hyaline Cast (Auto) Few Urine RBC 5-10 H (NOT SEEN) /HPF Urine WBC 0-5 (NOT SEEN) /HPF Ur Squamous Epith Cells Rare (NEGATIVE) /HPF Urine Bacteria Rare (NEGATIVE) /HPF Urine Mucus Few H (NEGATIVE) /LPF SARS CoV-2 RNA Rapid LUCIAN (NEGATIVE) Meds: Medications Generic Name Dose Route Start Last Admin Trade Name Freq PRN Reason Stop Dose Admin Flumazenil 0.2 mg 06/29/20 09:45 Romazicon IVPUSH ASDIRECTED PRN Respiratory Depression Flumazenil 0.2 mg 06/29/20 11:13 Romazicon IVPUSH ASDIRECTED PRN Respiratory Depression Sodium Chloride 1,000 mls @ 250 mls/hr 06/29/20 12:00 06/29/20 12:09 Normal Saline IV 250 mls/hr ASDIRECTED JAQUELIN Administration Sodium Chloride 10 ml 06/29/20 09:40 Saline Flush FLUSH ASDIRECTED PRN Keep Vein Open Discontinued Medications Generic Name Dose Route Start Last Admin Trade Name Freq PRN Reason Stop Dose Admin Diazepam 5 mg 06/29/20 09:45 06/29/20 10:26 Valium IVPUSH 06/29/20 09:46 5 mg STAT ONE Administration Diazepam 5 mg 06/29/20 11:13 06/29/20 11:17 Valium IVPUSH 06/29/20 11:14 5 mg STAT ONE Administration Sodium Chloride 1,000 mls @ 1,000 mls/hr 06/29/20 09:45 06/29/20 10:23 Normal Saline IV 06/29/20 10:44 1,000 mls/hr .BOLUS ONE Administration Ondansetron HCl 4 mg 06/29/20 09:45 06/29/20 10:25 Zofran IVPUSH 06/29/20 09:46 4 mg ONETIME ONE Administration - Radiology Interpretation Free Text/Narrative:: Chest x-ray negative for acute pathology. CT abdomen/pelvis negative for acute pathology - Re-Assessments/Exams Free Text/Narrative Re-Assessment/Exam: Pt. was given a liter or NS, zofran 4mg IV, and valium 5mg IV for tremors, which he states did help, but he was still shaking some much that he required a second 5 mg dose of valium IV in order to get a chest x-ray Departure - Departure Time of Disposition: 13:14 Disposition: DC/Tfer to [facility] 02 Clinical Impression: Lactic acidosis, Dehydration, JJ (acute kidney injury) - Discharge Information Referrals: PCP,None [Primary Care Provider] - Forms: ED Department Discharge Sepsis Event Note (ED) - Evaluation Sepsis Screening Result: No Definite Risk - Focused Exam Vital Signs: Vital Signs Temp Pulse Resp BP Pulse Ox 06/29/20 12:38 36.7 C 108 H 18 148/99 H 96 06/29/20 11:19 118 H 20 160/120 H 96 06/29/20 09:25 36.2 C 122 H 20 150/117 H 96 - Problem List Review Problem List Initiated/Reviewed/Updated: Yes - My Orders Last 24 Hours: My Active Orders 06/29/20 09:40 Sodium Chloride 0.9% [Saline Flush] 10 ml FLUSH ASDIRECTED PRN Peripheral IV Insertion Adult [OM.PC] Routine 06/29/20 09:41 Blood Culture x2 Reflex Set [OM.PC] Stat 06/29/20 09:45 flumazeniL [Romazicon] 0.2 mg IVPUSH ASDIRECTED PRN 06/29/20 10:15 CULTURE BLOOD [BC] Stat 06/29/20 10:19 CULTURE BLOOD [BC] Stat 06/29/20 11:13 flumazeniL [Romazicon] 0.2 mg IVPUSH ASDIRECTED PRN 06/29/20 12:00 Sodium Chloride 0.9% [Normal Saline] 1,000 ml IV ASDIRECTED - Assessment/Plan Last 24 Hours: My Active Orders 06/29/20 09:40 Sodium Chloride 0.9% [Saline Flush] 10 ml FLUSH ASDIRECTED PRN Peripheral IV Insertion Adult [OM.PC] Routine 06/29/20 09:41 Blood Culture x2 Reflex Set [OM.PC] Stat 06/29/20 09:45 flumazeniL [Romazicon] 0.2 mg IVPUSH ASDIRECTED PRN 06/29/20 10:15 CULTURE BLOOD [BC] Stat 06/29/20 10:19 CULTURE BLOOD [BC] Stat 06/29/20 11:13 flumazeniL [Romazicon] 0.2 mg IVPUSH ASDIRECTED PRN 06/29/20 12:00 Sodium Chloride 0.9% [Normal Saline] 1,000 ml IV ASDIRECTED Plan: Pt. will be transferred to [facility] for further treatment and monitoring. Again, his medications are likely contributing to his muscle spasticity/tremors and need to be adjusted. Pt. was given 1 liter or normal saline in ER and started on NS at 250ml/hr after that. Nausea is controlled with zofran. Pt. received a total of 10 mg IV valuim which helped with his RLS/tremors. Pt. will be accepted by Dr. Parikh at [facility]. All questions were answered.
[2020-06-29 10:46] LABS: ANION GAP 22.6 mmol/L (10-20); CHLORIDE,CL 106 mmol/L (98-107); SODIUM,NA 143 mmol/L (136-145)
[2020-06-29] MEDS ORDERED: Sodium Chloride 0.9% 1,000 ML IV SCH (12:00)
--- NOTE | 2020-06-29 12:08 | CR ---
[id number] RAD/RAD Chest PA or AP 1V EXAM: RAD Chest PA or AP 1V INDICATION: FEVER, ELEVATED LACTIC ACID. COMPARISON: April 04, 2020 DISCUSSION: Cardiomediastinal silhouette is normal in size and contour. No infiltrate, effusion, pneumothorax, or edema. IMPRESSION: Negative examination of the chest. Galen Holley MD 06/29/20 [id number] Thank you for allowing us to participate in the care of your patient.
--- NOTE | 2020-06-29 12:52 | CT ---
[id number] CT/CT Abdomen Pelvis W IV EXAM: CT Abdomen Pelvis W IV CLINICAL DATA: ABDOMINAL PAIN, ELEVATED LACTIC ACID. COMPARISON STUDY: April 05, 2020. FINDINGS: Diffusely decreased parenchymal attenuation throughout the liver, consistent with steatosis. Area of focal fatty sparing adjacent to the gallbladder fossa. No focal lesion or biliary ductal dilation. Spleen, pancreas, gallbladder, common bile duct, adrenal glands, and kidneys are unremarkable. Small sliding-type hiatus hernia. Appearance of the gastroesophageal junction suggests prior Yordy fundoplication. Correlate with surgical history. Moderate colonic stool burden. Correlate for constipation. No colitis or diverticulitis. No small bowel obstruction or inflammation. Appendix is normal. No lymphadenopathy, free fluid, or pneumoperitoneum. Urinary bladder decompressed by a Santana catheter. Spondylosis. No fracture or osseous lesion. IMPRESSION: No acute findings in the abdomen or pelvis. Hepatomegaly and diffuse hepatic steatosis. Correlate with LFTs. Other chronic findings are described above. Galen Holley MD 06/29/20 1112 Thank you for allowing us to participate in the care of your patient.
[2020-06-29 13:37] VITALS: BP 107/64; PULSE 94
[2020-06-29] MEDS ORDERED: Iopamidol 612 MG/ML 100 ML Bottle IVPUSH ONE (13:40)
== END 2020-06-29 14:02 | disposition short-term general hospital (02) ==
LOC: VM.ED 09:18
DX: E86.0 Dehydration (principal); E87.2 Acidosis; N17.9 Acute kidney failure, unspecified; R25.1 Tremor, unspecified; R10.84 Generalized abdominal pain; R11.2 Nausea with vomiting, unspecified; I10 Essential (primary) hypertension; E78.00 Pure hypercholesterolemia, unspecified; I25.2 Old myocardial infarction; J45.909 Unspecified asthma, uncomplicated; K21.9 Gastro-esophageal reflux disease without esophagitis; F43.10 Post-traumatic stress disorder, unspecified; F32.9 Major depressive disorder, single episode, unspecified; E11.9 Type 2 diabetes mellitus without complications; Z88.5 Allergy status to narcotic agent; Z88.8 Allergy status to other drugs, medicaments and biological substances; Z91.018 Allergy to other foods; Z79.4 Long term (current) use of insulin; Z79.899 Other long term (current) drug therapy
CPT/HCPCS: 36415; 71045; 74177; 80053; 81001; 83605; 83735; 85025; 85610; 86140; 87040; 87635; 96361; 96374; 96375; 96376; 99285; J2405; J3360; J7030; Q9967; 99284; U0002

== ENCOUNTER 2021-07-11 19:22 | Emergency (ER) | payer OTHER ==
[2021-07-11] MEDS ORDERED: Sodium Chloride 0.9% 10 ML Syringe FLUSH PRN (19:32)
--- NOTE | 2021-07-11 19:35 | EDM.PDOC ---
ED HPI GENERAL MEDICAL PROBLEM - General Chief Complaint: Respiratory Problem Stated Complaint: COUGH, SOB Time Seen by Provider: 07/11/21 19:22 Source of Information: Reports: Patient History Limitations: Reports: No Limitations - History of Present Illness INITIAL COMMENTS - FREE TEXT/NARRATIVE: To department with concerns of a cough. Patient states that he has had increasing cough for the course the last 3 to 4 days, intermittent fevers, and heaviness on his chest. He also states that he has been coughing up phlegm. Patient does have a history of pneumonia in the past needing IV antibiotics. Patient does also have Parkinson's and limited mobility at times. Patient has not gotten into see his primary care provider yet. He has had recent exposure to COVID-19 he does believe however he is vaccinated. Onset: Gradual Location: Reports: Generalized Quality: Reports: Dull Severity: Moderate Improves with: Reports: None Worsens with: Reports: None Associated Symptoms: Reports: No Other Symptoms - Related Data Allergies Allergy/AdvReac Type Severity Reaction Status Date / Time hydrocodone Allergy Dizziness Verified 06/29/20 09:37 sertraline HCl [From Zoloft] Allergy Hives Verified 06/29/20 09:37 cranberry Allergy Respiratory Uncoded 06/29/20 09:37 Distress Home Meds: Home Meds Albuterol [Ventolin HFA] 2 puff INH Q6HR PRN 07/15/14 [History] Insulin Glarg,Human.Rec.Analog [Lantus] 36 unit SUBCUT BEDTIME 07/15/14 [History] Lisinopril 5 mg PO DAILY 02/24/15 [History] PARoxetine [Paxil] 40 mg PO DAILY 02/24/15 [History] Benztropine [Cogentin] 0.5 mg PO BID 07/15/17 [History] Carbidopa/Levodopa [Sinemet CR 50-200] 1 each PO 0800 07/15/17 [History] Gabapentin [Neurontin] 800 mg PO TID 07/15/17 [History] Warfarin [Coumadin] 5 mg PO MO 07/15/17 [History] Alfuzosin HCl [Alfuzosin HCl ER] 10 mg PO DAILY 02/21/20 [History] Alogliptin Benzoate [Alogliptin] 25 mg PO DAILY 04/04/20 [History] Budesonide/Formoterol Fumarate [Budesonide-Formoterol 160-4.5] 2 puff INH BID 04/04/20 [History] Carbidopa/Levodopa [Carbidopa-Levodopa 25-250] 1 tab PO 0800,1100,1500 04/04/20 [History] Empagliflozin [Jardiance] 12.5 mg PO DAILY 04/04/20 [History] Eszopiclone 3 mg PO BEDTIME PRN 04/04/20 [History] Finasteride 5 mg PO DAILY 04/04/20 [History] Gabapentin [Neurontin] 1,200 mg PO BEDTIME 04/04/20 [History] Insulin Aspart [NovoLOG] 5 units SUBCUT TIDMEALS 04/04/20 [History] Mirtazapine 30 mg PO BEDTIME 04/04/20 [History] Pantoprazole Sodium [Protonix] 40 mg PO BIDMEALS 04/04/20 [History] QUEtiapine Fumarate [Quetiapine Fumarate] 50 mg PO TID 04/04/20 [History] Warfarin [Coumadin] 7.5 mg PO SUTUWETHFRSA 04/04/20 [History] busPIRone HCl [Buspirone HCl] 15 mg PO BID 04/04/20 [History] metFORMIN HCl [Metformin HCl ER] 500 mg PO BIDMEALS 04/04/20 [History] traZODone HCl [Trazodone HCl] 75 mg PO BEDTIME 04/04/20 [History] Cyanocobalamin (Vitamin B12) [Vitamin B12] 1,000 mcg PO DAILY 06/09/20 [History] Docusate Sodium [Colace] 100 mg PO TID PRN 06/09/20 [History] Famotidine [Pepcid] 20 mg PO DAILY 06/09/20 [History] Fluticasone Propionate [Flonase] 50 mcg ESAU BID 06/09/20 [History] Ondansetron [Zofran] 4 mg PO TID 06/09/20 [History] atorvaSTATin [Lipitor] 10 mg PO BEDTIME 06/09/20 [History] atorvaSTATin [Lipitor] 10 mg PO BEDTIME 06/09/20 [History] tiZANidine HCl [Zanaflex] 2 mg PO TID 06/09/20 [History] Azithromycin 500 mg PO DAILY 5 Days #5 tablet 07/11/21 [Rx] Past Medical History HEENT History: Reports: Allergic Rhinitis Cardiovascular History: Reports: High Cholesterol, Hypertension, NE, Other (See Below) Other Cardiovascular History: NSTEMI Respiratory History: Reports: Asthma, PE Gastrointestinal History: Reports: Colon Polyp, GERD Other Gastrointestinal History: ch's esophagus Musculoskeletal History: Reports: Back Pain, Chronic Neurological History: Reports: Parkinson's Psychiatric History: Reports: Depression, PTSD Endocrine/Metabolic History: Reports: Diabetes, Type II Social & Family History - Caffeine Use Caffeine Use: Reports: Coffee, Soda ED ROS GENERAL - Review of Systems Review Of Systems: Comprehensive ROS is negative, except as noted in HPI. Constitutional: Reports: No Symptoms HEENT: Reports: No Symptoms Respiratory: Reports: Pleuritic Chest Pain, Cough Cardiovascular: Reports: No Symptoms Endocrine: Reports: No Symptoms GI/Abdominal: Reports: No Symptoms : Reports: No Symptoms Musculoskeletal: Reports: No Symptoms Skin: Reports: No Symptoms Neurological: Reports: No Symptoms Psychiatric: Reports: No Symptoms Hematologic/Lymphatic: Reports: No Symptoms Immunologic: Reports: No Symptoms ED EXAM, GENERAL - Physical Exam Exam: See Below Exam Limited By: No Limitations General Appearance: Alert, WD/WN, No Apparent Distress Throat/Mouth: Normal Inspection, Normal Lips, Normal Teeth, Normal Oropharynx, Normal Voice, No Airway Compromise Neck: Normal Inspection, Supple, Non-Tender, Full Range of Motion Respiratory/Chest: No Respiratory Distress, No Accessory Muscle Use, Chest Non- Tender, Decreased Breath Sounds Cardiovascular: Normal Peripheral Pulses, Regular Rate, Rhythm, No Edema, No Rub Back Exam: Normal Inspection, Full Range of Motion Extremities: Normal Inspection, Normal Range of Motion, Non-Tender, No Pedal Edema, Normal Capillary Refill Neurological: Alert, Oriented, Normal Gait Psychiatric: Normal Affect, Normal Mood Skin Exam: Warm, Dry, Intact Course - Vital Signs Last Recorded V/S: Last Vital Signs Temp 36.6 C 07/11/21 19:22 Pulse 83 07/11/21 19:22 Resp 18 07/11/21 19:22 BP 121/78 07/11/21 19:22 Pulse Ox 96 07/11/21 19:22 - Orders/Labs/Meds Orders: Active Orders 24 hr Category Date Time Status Chest 1V Frontal [CR] Stat Exams 07/11/21 19:27 Ordered COMPREHENSIVE METABOLIC PN,CMP [CHEM] Stat Lab 07/11/21 19:45 Received COVID-19/FLU A+B/RSV [MOLEC] Stat Lab 07/11/21 19:35 Received CREATINE KINASE,CK [CHEM] Stat Lab 07/11/21 19:45 Received CULTURE BLOOD [BC] Stat Lab 07/11/21 19:34 Ordered CULTURE BLOOD [BC] Stat Lab 07/11/21 19:34 Ordered LACTIC ACID [CHEM] Stat Lab 07/11/21 19:45 Received PRO B-TYPE NATRIUR PEPT,BNPPRO [CHEM] Stat Lab 07/11/21 19:45 Received TROPONIN I HIGH SENSITIVITY [CHEM] Stat Lab 07/11/21 19:45 Received Sodium Chloride 0.9% [Saline Flush] Med 07/11/21 19:32 Active 10 ml FLUSH ASDIRECTED PRN Blood Culture x2 Reflex Set [OM.PC] Stat Oth 07/11/21 19:34 Ordered Peripheral IV Insertion Adult [OM.PC] Stat Oth 07/11/21 19:32 Ordered Medication Orders Sodium Chloride (Sodium Chloride 0.9% 10 Ml Syringe) 10 ml FLUSH ASDIRECTED PRN PRN Reason: Keep Vein Open Labs: Laboratory Tests 07/11/21 Range/Units 19:45 WBC 7.4 (4.0-10.0) x10^3/uL RBC 4.88 (4.5-6.0) x10^6/uL Hgb 15.1 (14.0-18.0) g/dL Hct 43.5 (40.0-52.0) % MCV 89.1 (78.0-93.0) fL MCH 30.9 (26.0-32.0) pg MCHC 34.7 (32.0-36.0) g/dL RDW Coeff of Sharri 13.0 (10.0-15.0) % Plt Count 241 (130-400) x10^3/uL Immature Gran % (Auto) 0.10 (0.00-0.43) % Neut % (Auto) 51.7 (50.0-80.0) % Lymph % (Auto) 36.3 (25.0-50.0) % [place] % (Auto) 7.9 (2.0-11.0) % Eos % (Auto) 3.3 (0.0-4.0) % Baso % (Auto) 0.7 (0.2-1.2) % Neut # (Auto) 3.8 (1.8-7.7) x10^3/uL Lymph # (Auto) 2.7 (1.0-4.8) x10^3/uL [place] # (Auto) 0.6 (0.0-0.8) x10^3/uL Eos # (Auto) 0.2 (0.0-0.5) x10^3/uL Baso # (Auto) 0.1 (0.0-0.2) x10^3/uL Immature Gran # (Auto) 0.01 (0.00-0.07) x10^3/uL Meds: Medications Generic Name Dose Route Start Last Admin Trade Name Freq PRN Reason Stop Dose Admin Sodium Chloride 10 ml 07/11/21 19:32 Sodium Chloride 0.9% 10 Ml Syringe FLUSH ASDIRECTED PRN Keep Vein Open Discontinued Medications Generic Name Dose Route Start Last Admin Trade Name Freq PRN Reason Stop Dose Admin Ceftriaxone Sodium 1 gm 07/11/21 19:34 Ceftriaxone 1 Gm Vial IVPUSH 07/11/21 19:35 ONETIME ONE Departure - Departure Time of Disposition: 20:00 Disposition: Home, Self-Care 01 Condition: Good Clinical Impression: Community acquired pneumonia Qualifiers: Laterality: unspecified laterality Qualified Code(s): J18.9 - Pneumonia, unspecified organism - Discharge Information *PRESCRIPTION DRUG MONITORING PROGRAM REVIEWED*: Not Applicable *COPY OF PRESCRIPTION DRUG MONITORING REPORT IN PATIENT YVONNE: Not Applicable Instructions: Community-Acquired Pneumonia, Adult Forms: ED Department Discharge Additional Instructions: 1. rest 2. increase your water intake 3. Take all antibiotics as prescribed even if feeling better 4. Take a probiotic while on antibiotics to help promote healthy GI motility 5. Activity and diet as tolerated 6. Can use Ibuprofen and tylenol for any fever or discomfort 7. Follow up with your PCP or return if symptoms progress or worsen 8. Education provided to you regarding your illness, probiotics, antibiotic prescribed 9. Call with any questions or concerns Sepsis Event Note (ED) - Focused Exam Vital Signs: Vital Signs Temp Pulse Resp BP Pulse Ox 07/11/21 19:22 36.6 C 83 18 121/78 96 - My Orders Last 24 Hours: My Active Orders 07/11/21 19:27 Chest 1V Frontal [CR] Stat 07/11/21 19:32 Sodium Chloride 0.9% [Saline Flush] 10 ml FLUSH ASDIRECTED PRN Peripheral IV Insertion Adult [OM.PC] Stat 07/11/21 19:34 CULTURE BLOOD [BC] Stat CULTURE BLOOD [BC] Stat Blood Culture x2 Reflex Set [OM.PC] Stat 07/11/21 19:35 COVID-19/FLU A+B/RSV [MOLEC] Stat 07/11/21 19:45 COMPREHENSIVE METABOLIC PN,CMP [CHEM] Stat CREATINE KINASE,CK [CHEM] Stat LACTIC ACID [CHEM] Stat PRO B-TYPE NATRIUR PEPT,BNPPRO [CHEM] Stat TROPONIN I HIGH SENSITIVITY [CHEM] Stat - Assessment/Plan Last 24 Hours: My Active Orders 07/11/21 19:27 Chest 1V Frontal [CR] Stat 07/11/21 19:32 Sodium Chloride 0.9% [Saline Flush] 10 ml FLUSH ASDIRECTED PRN Peripheral IV Insertion Adult [OM.PC] Stat 07/11/21 19:34 CULTURE BLOOD [BC] Stat CULTURE BLOOD [BC] Stat Blood Culture x2 Reflex Set [OM.PC] Stat 07/11/21 19:35 COVID-19/FLU A+B/RSV [MOLEC] Stat 07/11/21 19:45 COMPREHENSIVE METABOLIC PN,CMP [CHEM] Stat CREATINE KINASE,CK [CHEM] Stat LACTIC ACID [CHEM] Stat PRO B-TYPE NATRIUR PEPT,BNPPRO [CHEM] Stat TROPONIN I HIGH SENSITIVITY [CHEM] Stat Assessment:: 1. cough 2. community acquired pneumonia Plan: 1. Sepsis protocol follow 2. Labs completed in the ER. Results reviewed with the patient 3. chest xray completed 4. IV initiated in the emergency department 5. Covid-19 test completed 6. EKG completed in ER- sinus rhythm 7. Rocephin 1gm given 8. Consultation completed with- 9. Patient will be transferred to a higher level of care needing further medical and/or surgical interventions 10. Patient and nursing staff was updated regarding the plan of care 11. Patient and family are agreeable to the above plan of care 12. All questions and concerns were addressed with the patient and family prior to discharge
[2021-07-11 20:06] VITALS: BP 121/78; PULSE 83
[2021-07-11] MEDS: cefTRIAXone 1 GM Vial IVPUSH ONE (20:27)
[2021-07-11 20:39] LABS: CHLORIDE,CL 105 mmol/L (98-107); SODIUM,NA 140 mmol/L (136-145)
[2021-07-11 20:46] LABS: CORONAVIRUS COVID-19 NAA NEGATIVE (NEGATIVE)
[2021-07-11 20:47] LABS: RESPIRATORY SYNCYTIAL VIR NAA NEGATIVE (NEGATIVE)
--- NOTE | 2021-07-13 09:20 | CR ---
[id number] RAD/RAD Chest Portable EXAM: RAD Chest Portable INDICATION: CHEST PRESSURE COMPARISON: June 2020. DISCUSSION/IMPRESSION: Cardiomediastinal silhouette is normal in size and contour. Lungs are clear. No pleural effusion or pneumothorax. Galen Holley MD 07/13/21 0919 Thank you for allowing us to participate in the care of your patient.
== END 2021-07-11 20:50 | disposition home or self-care (01) ==
LOC: VM.ED 19:22
DX: J18.9 Pneumonia, unspecified organism (principal); E78.00 Pure hypercholesterolemia, unspecified; I10 Essential (primary) hypertension; I25.2 Old myocardial infarction; E11.9 Type 2 diabetes mellitus without complications; J45.909 Unspecified asthma, uncomplicated; Z88.8 Allergy status to other drugs, medicaments and biological substances; Z79.899 Other long term (current) drug therapy; Z79.4 Long term (current) use of insulin; Z20.822 Contact with and (suspected) exposure to COVID-19
CPT/HCPCS: 0241U; 71045; 80053; 82550; 83605; 83880; 84484; 85025; 93005; 96374; 99284; J0696; 36415

== ENCOUNTER 2022-06-30 14:54 | Emergency (ER) | payer OTHER ==
[2022-06-30 15:26] VITALS: BP 121/48; PULSE 95
[2022-06-30] MEDS ORDERED: predniSONE 20 MG Tab PO ONE (17:24)
== END 2022-06-30 18:03 | disposition home or self-care (01) ==
LOC: VM.ED 14:54
DX: U07.1 COVID-19 (principal); I10 Essential (primary) hypertension; E78.00 Pure hypercholesterolemia, unspecified; I25.2 Old myocardial infarction; E11.9 Type 2 diabetes mellitus without complications; K21.9 Gastro-esophageal reflux disease without esophagitis; Z88.5 Allergy status to narcotic agent; Z88.8 Allergy status to other drugs, medicaments and biological substances; Z91.018 Allergy to other foods; Z79.4 Long term (current) use of insulin; Z79.01 Long term (current) use of anticoagulants; Z79.899 Other long term (current) drug therapy
CPT/HCPCS: 36415; 71045; 80048; 83880; 84145; 84484; 85025; 85610; 87040; 99284; 99285; J7512